=== PATIENT | male | born 1955 | race Caucasian/White ===

== ENCOUNTER → 2016-09-09 | Outpatient (CLI) | payer OTHER ==
[2016-07-25 10:45] VITALS: BP 158/100
[~2016-09-09] MED LIST: AMIO200T PO; AMIO200T2 PO; APIX5TAB PO; ASPI325T11 PO; FURO20TA3 PO; FURO40TA4 PO; HYDR-2666 PO; HYDR25TA9 PO; LISI-338 PO; MAGN400T22 PO; METO25TA4 PO; METO50TA2 PO; OXYC1TAB7 PO; POTA20TA4 PO; soma PO
--- NOTE | 2016-09-09 14:29 | EKG ---
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
[2016-09-09 14:36] LABS: BASO % 0 % (0-3); EOS % 1 % (0-3); HEMATOCRIT 41.7 % (39.0-53.0); HEMOGLOBIN 13.8 g/dL (13.0-17.5); LYMPH # 2.6 x10^3/uL (1.0-4.8); LYMPH % 30 % (24-48); MEAN CORPUSCULAR HEMOGLOBIN 30 pg (25-35); MEAN CORPUSCULAR HGB CONC 33 g/dL (31-37); MEAN CORPUSCULAR VOLUME 91 fL (79-100); MONO % 6 % (0-9); NEUT % 62 % (31-73); PLATELET COUNT 291 x10^3/uL (140-400); RED BLOOD COUNT 4.57 x10^6/uL (4.30-5.70); RED CELL DISTRIBUTION WIDTH 13.6 % (11.5-14.5); WHITE BLOOD COUNT 8.6 x10^3/uL (4.0-11.0)
[2016-09-09 14:56] LABS: ALBUMIN 3.6 g/dL (3.4-5.0); ALBUMIN/GLOBULIN RATIO 0.7 (1.0-1.7); CALCIUM 9.4 mg/dL (8.5-10.1); CREATININE 1.6 mg/dL (0.7-1.3); GFR 44.5; INR 1.1 (0.8-1.1); POTASSIUM 3.7 mmol/L (3.5-5.1); PROTHROMBIN TIME PATIENT 13.2 SEC (11.7-14.0); TOTAL BILIRUBIN 0.4 mg/dL (0.2-1.0); TOTAL PROTEIN 8.8 g/dL (6.4-8.2)
== END | disposition home or self-care (01) ==
LOC: SURGPAT 14:00
PROVIDERS: ATTEND Thoracic Surgery (Cardiothoracic Vascular Surgery)
DX: Z01.818 Encounter for other preprocedural examination (principal)
CPT/HCPCS: 36415; 80053; 85027; 85610; 85730; 87641; 93005

== ENCOUNTER 2016-09-10 05:37 | Inpatient (IN) | payer OTHER ==
[2016-09-10] VITALS (11 sets, daily range): BP systolic 87–158; BP diastolic 55–90
[~2016-09-10] VITALS: Ht 177.8 cm; Wt 130.4 kg
[~2016-09-10 05:37] MED LIST changes: -AMIO200T2 PO; -ASPI325T11 PO; -FURO20TA3 PO; -FURO40TA4 PO; -HYDR-2666 PO; -MAGN400T22 PO; -OXYC1TAB7 PO; -POTA20TA4 PO
[2016-09-10] MEDS ORDERED: CEFAZOLIN SODIUM 1 GM in IV NORMAL SALINE 500ML BAG 500 ML IRR ONE (06:00)
[2016-09-10] MEDS ORDERED: POTASSIUM CHLORIDE 15 MEQ, SODIUM BICARBONATE VIAL 12.5 MEQ in IV ELECTROLYTE-S (PH 7.4... IRR ONE (06:00)
[2016-09-10] MEDS ORDERED: POTASSIUM CHLORIDE 70 MEQ, SODIUM BICARBONATE VIAL 12.5 MEQ, LIDOCAINE 2% 24 ML in IV E... IRR ONE (06:00)
[2016-09-10] MEDS ORDERED: CEFAZOLIN PREMIX 2 GM/50 ML BAG. IV ONE (06:30)
[2016-09-10] MEDS ORDERED: LIDOCAINE 2% 100 MG/5 ML DISP.SYRIN. ONE ×2 (06:31→15:18)
[2016-09-10] MEDS ORDERED: CEFAZOLIN 2GM PREMIX 50 ML IV ONE (06:31)
[2016-09-10] MEDS ORDERED: AMINOCAPROIC ACID 5,000 MG/20 ML VIAL IV ONE ×2 (06:31→15:18)
[2016-09-10] MEDS ORDERED: ROCURONIUM 100 MG/10 ML VIAL. ONE ×2 (06:31→09:09)
[2016-09-10] MEDS ORDERED: ETOMIDATE 20 MG/10 ML VIAL. IV ONE (06:31)
[2016-09-10] MEDS ORDERED: PHENYLEPHRINE 10 MG/ML VIAL. ONE (06:31)
[2016-09-10] MEDS ORDERED: HEPARIN for IV BOLUS 10,000 UNIT/10 ML VIAL. ONE ×4 (06:31→15:18)
[2016-09-10] MEDS ORDERED: MIDAZOLAM HCL/PF 5 MG/5 ML VIAL ONE (06:54)
[2016-09-10] MEDS ORDERED: SUFentanil 250 MCG/5 ML AMPUL. ONE (06:54)
[2016-09-10] MEDS ORDERED: EPINEPHRINE 1 MG/10 ML DISP.SYRIN. ONE (06:57)
[2016-09-10] MEDS ORDERED: NITROGLYCERIN PREMIX 0 ML IV ONE (06:57)
[2016-09-10] MEDS ORDERED: HYDROMORPHONE 2 MG/ML VIAL. IV PRN (07:00)
[2016-09-10] MEDS ORDERED: IV RINGERS,LACTATED 1000ML 1,000 ML IV SCH (07:00)
[2016-09-10] MEDS ORDERED: LIDOCAINE 1% 1 ML SYRINGE. ID PRN (07:00)
[2016-09-10] MEDS ORDERED: MORPHINE SULFATE 2 MG/ML DISP.SYRIN. IV PRN (07:00)
[2016-09-10] MEDS ORDERED: EPHEDRINE PF IN SALINE 50 MG/5 ML DISP.SYRIN. IV ONE (07:00)
[2016-09-10] MEDS ORDERED: ONDANSETRON PF 4 MG/2 ML VIAL. IV PRN (07:00)
[2016-09-10] MEDS ORDERED: PROCHLORPERAZINE 10 MG/2 ML VIAL. IV PRN (07:00)
[2016-09-10] MEDS ORDERED: CEFAZOLIN 2GM PREMIX 50 ML IV PRN (07:00)
[2016-09-10] MEDS ORDERED: FENTANYL PF 100 MCG/2 ML VIAL. IV PRN ×2 (07:00)
[2016-09-10] MEDS ORDERED: THROMBIN 20,000 UNIT SPRAY.SYRN KIT TP ONE (07:09)
[2016-09-10] MEDS ORDERED: SURGICEL NU-KNIT 3X4. ONE (07:09)
[2016-09-10] MEDS ORDERED: GELATIN SPONGE SIZE 100. ONE (07:09)
[2016-09-10] MEDS ORDERED: SURGICEL HEMOSTAT 4X8 EACH. ONE (07:09)
[2016-09-10] MEDS ORDERED: VANCOMYCIN 10GM VIAL for OR. CEMENT ONE (07:30)
--- NOTE | 2016-09-10 07:59 | PDOC1 ---
History and Physical Date of Admission Date of Admission DATE: 09/10/16 TIME: 07:44 Identification/Chief Complaint Chief Complaint Ascending aortic aneurysm Source Source: Chart review, Patient History of Present Illness History of Present Illness Patient is a 60 year old male, who presented in February 2016 with new Afib with RVR. His was successfully DCCV to SR, but and ECHO demonstrated an ascending aortic aneurysm 5.[address] angio confirmed an ascending aortic aneurysm 5,3-5,4 cm. The aortic root and the proximal arch are not involved. His LHC showed normal coronaries. His LV function is normal. The aortic valve is tricuspid with normal structure, with trace AI. There is no family history of an acute aortic event. He is here today for and elective ascending aortic aneurysm repair. Past Medical History Cardiovascular: AFIB, HTN Pulmonary: No pertinent hx GI: No pertinent hx Heme/Onc: Cancer (renal cell ca s/p nephrectomy) Hepatobiliary: Other (pancreatic nodules-workup complete) Psych: No pertinent hx Musculoskeletal: No pain Rheumatologic: No pertinent hx Infectious disease: No pertinent hx ENT: No pertinent hx Renal/: Chronic renal failure Endocrine: No pertinent hx Dermatology: No pertinent hx Past Surgical History Past Surgical History: Cholecystectomy, Hernia Repair, Other (right nephrectomy ) Family History Family History: Coronary Artery Disease Social History Smoke: Quit (10 years ago) ALCOHOL: none Drugs: None Current Medications Current Medications Current Medications Potassium Chloride 70 meq/ Sodium Bicarbonate 12.5 meq/Lidocaine HCl 24 ml/ Parenteral Electrolytes 571.5 ml @ 571.5 mls/ hr 1X PERIOP ONCE IRR ; Start at 06:00; Stop 09/10/16 at 06:59; Status DC Potassium Chloride 15 meq/ Sodium Bicarbonate 12.5 meq/Parenteral Electrolytes 520 ml @ 520 mls/hr 1X PERIOP ONCE IRR ; Start 09/10/16 at 06:00; Stop at 06:59; Status DC Cefazolin Sodium/ Sodium Chloride (Ancef/Iv Sodium Chloride 0.9% 500ml Bag) 500 ml @ 500 mls/hr 1X PERIOP ONCE IRR ; Start 09/10/16 at 06:00; Stop 09/10/16 at 06:59; Status DC Ondansetron HCl (Zofran) 4 mg PRN Q6HRS PRN IV Nausea; Start 09/10/16 at 07:00 ; Stop 3/1/17 at 06:59 Fentanyl Citrate (Fentanyl 2ml Vial) 25 mcg PRN Q5MIN PRN IV MILD PAIN; Start 09/10/16 at 07:00; Stop 09/11/16 at 06:59 Fentanyl Citrate (Fentanyl 2ml Vial) 50 mcg PRN Q5MIN PRN IV MODERATE PAIN; Start 09/10/16 at 07:00; Stop 09/11/16 at 06:59 Morphine Sulfate 1 mg 1 mg PRN Q10MIN PRN IV SEVERE PAIN; Start 09/10/16 at 07: 00; Stop 09/11/16 at 06:59 Lactated Ringer's (Iv Lactated Ringers) 1,000 ml @ 30 mls/hr Q24H IV ; Start at 07:00; Stop 09/10/16 at 18:59 Lidocaine HCl 2 ml 1X PRN PRN ID IV START; Start 09/10/16 at 07:00; Stop at 06:59 Hydromorphone HCl (Dilaudid) 0.5 mg PRN Q10MIN PRN IV SEVERE PAIN, Second choice; Start 09/10/16 at 07:00; Stop 09/11/16 at 06:59 Prochlorperazine Edisylate (Compazine) 5 mg PACU PRN PRN IV NAUSEA; Start 09/10 at 07:00; Stop 09/11/16 at 06:59 Etomidate (Amidate) 20 mg STK-MED ONCE IV ; Start 09/10/16 at 06:31; Stop at 06:32; Status DC Heparin Sodium (Porcine) 10,000 unit STK-MED ONCE .ROUTE ; Start 09/10/16 at 06: 31; Stop 09/10/16 at 06:32; Status DC Phenylephrine HCl (Iraj-Synephrine Inj) 10 mg STK-MED ONCE .ROUTE ; Start at 06:31; Stop 09/10/16 at 06:32; Status DC Lidocaine HCl 100 mg STK-MED ONCE .ROUTE ; Start 09/10/16 at 06:31; Stop at 06:32; Status DC Aminocaproic Acid (Amicar) 5,000 mg STK-MED ONCE IV ; Start 09/10/16 at 06:31; Stop 09/10/16 at 06:32; Status DC Rocuronium [place] 100 mg 100 mg STK-MED ONCE .ROUTE ; Start 09/10/16 at 06:31; Stop 09/10/16 at 06:32; Status DC Cefazolin Sodium/ Dextrose 50 ml @ As Directed STK-MED ONCE IV ; Start 09/10/16 at 06:31; Stop 09/10/16 at 06:32; Status DC Cefazolin Sodium/ Dextrose (Ancef 2gm Premix) 50 ml @ 100 mls/hr 1X PREOP PRN IV PER PROTOCOL; Start 09/10/16 at 07:00; Stop 09/10/16 at 12:00 Sufentanil Citrate (Sufenta) 250 mcg STK-MED ONCE .ROUTE ; Start 09/10/16 at 06: 54; Stop 09/10/16 at 06:55; Status DC Midazolam HCl 5 mg 5 mg STK-MED ONCE .ROUTE ; Start 09/10/16 at 06:54; Stop at 06:55; Status DC Nitroglycerin/ Dextrose (Nitroglycerin Drip) 250 ml @ As Directed STK-MED ONCE IV ; Start 09/10/16 at 06:57; Stop 09/10/16 at 06:58; Status DC Epinephrine HCl 1 mg STK-MED ONCE .ROUTE ; Start 09/10/16 at 06:57; Stop at 06:58; Status DC Ephedrine Sulfate 50 mg STK-MED ONCE IV ; Start 09/10/16 at 07:00; Stop at 07:01; Status DC Cellulose 1 each STK-MED ONCE .ROUTE ; Start 09/10/16 at 07:09; Stop 09/10/16 at 07:10; Status DC Cellulose 1 each STK-MED ONCE .ROUTE ; Start 09/10/16 at 07:09; Stop 09/10/16 at 07:10; Status DC Gelatin (Gelfoam Size 100) 1 each STK-MED ONCE .ROUTE ; Start 09/10/16 at 07:09 ; Stop 09/10/16 at 07:10; Status DC Thrombin 20,000 unit STK-MED ONCE TP ; Start 09/10/16 at 07:09; Stop 09/10/16 at 07:10; Status DC Vancomycin HCl (Vanco) 10 gm 1X ONCE CEMENT ; Start 09/10/16 at 07:30; Stop at 07:31; Status DC Active Scripts Active Reported [soma] 50 Mg PO HS Lisinopril 5 Mg Tablet 1 Tab PO HS Metoprolol Tartrate 50 Mg Tablet 1 Tab PO BID Cordarone (Amiodarone Hcl) 200 Mg Tablet 200 Mg PO BID Hydrochlorothiazide Tablet (Hydrochlorothiazide) 25 Mg Tablet 1 Tab PO DAILY Allergies Allergies: Coded Allergies: No Known Drug Allergies (Unverified , 09/09/16) ROS General: No: Appetite, Chills, Fatigue, Malaise, Night Sweats PSYCHOLOGICAL ROS: No: Anxiety, Behavioral Disorder, Concentration difficultie , Decreased libido, Depression, Disorientation, Hallucinations, Hostility, Irritablity, Memory difficulties, Mood Swings, Obsessive thoughts, Physical abuse, Sexual abuse, Sleep disturbances, Suicidal ideation Eyes: No Blurry vision, No Decreased vision, No Double vision, No Dry eyes, No Excessive tearing, No Eye Pain, No Itchy Eyes, No Loss of vision, No Photophobia , No Scotomata, No Uses contacts, No Uses glasses HEENT: No: Epistaxis, Heacaches, Hearing change, Nasal congestion, Nasal discharge, Oral lesions, Sinus pain, Sneezing, Snoring, Sore Throat, Tinnitus, Vertigo, Visual Changes, Vocal changes ALLERGY AND IMMUNOLOGY: No: Hives, Insect Bite Sensitivity, Itchy/Watery Eyes, Nasal Congestion, Post Nasal Drip, Seasonal Allergies Hematological and Lymphatic: No: Bleeding Problems, Blood Clots, Blood Transfusions, Brusing, Night Sweats, Pallor, Swollen Lymph Nodes ENDOCRINE: No: Breast Changes, Galactorrhea, Hair Pattern Changes, Hot Flashes , Malaise/lethargy, Mood Swings, Palpitations, Polydipsia/polyuria, Skin Changes , Temperature Intolerance, Unexpected Weight Changes Respiratory: No: Cough, Hemoptysis, Orthopnea, Pleuritic Pain, SOB with excertion, Shortness of breath, Sputum Changes, Stridor, Tachypnea, Wheezing Cardiovascular: No Chest Pain, No Edema, No Lt Headedness, No Orthopnea, No Palpitations, No Paroxysmal Noc. Dyspnea Gastrointestinal: No Abdominal Pain, No Constipation, No Diarrhea, No Hematochezia, No Melena, No Nausea, No Vomiting Genitourinary: YES , No Discharge, No Dysuria, No Flank Pain, No Frequency, No Hematuria, No Incontinence, No Pain, No Retention, No Urgency Musculoskeletal: No Gait Disturbance, No Joint Pain, No Joint Stiffness, No Joint Swelling, No Muscle Pain, No Muscular Weakness, No Pain In:, No Swelling In: Neurological: Yes Other, No Behavorial Changes, No Bowel/Bladder ControlChng, No Confusion, No Dizziness, No Gait Disturbance, No Headaches, No Impaired Coord/balance, No Memory Loss, No Numbness/Tingling, No Seizures, No Speech Problems, No Tremors, No Visual Changes, No Weakness Skin: No Acne, No Dry Skin, No Eczema, No Hair Changes, No Lumps, No Mole Changes, No Mottling, No Nail Changes, No Pruritus, No Rash, No Skin Lesion Changes Physical Exam General: Alert, Oriented X3, No acute distress HEENT: Atraumatic, PERRLA Lungs: Clear to auscultation, Normal air movement Heart: S1S2, RRR, no thrills, no murmurs Abdomen: Normal bowel sounds, Soft, No tenderness, No hepatosplenomegaly Rectal Exam: not examined, deferred Extremities: No edema Skin: No significant lesion Neuro: Normal gait, Normal speech, Strength at 5/5 X4 ext, Normal tone, Sensation intact Vitals Vitals Vital Signs Date Time Temp Pulse Resp B/P Pulse Ox O2 Delivery O2 Flow Rate FiO2 09/10/16 06:07 98.0 59 18 131/88 97 Room Air 98.0 134/89 Labs Labs Laboratory Tests Test 09/10/16 06:20 Glucose (Fingerstick) 82mg/dL (70-99) Laboratory Tests Test 09/10/16 06:20 Glucose (Fingerstick) 82mg/dL (70-99) VTE Prophylaxis Ordered VTE Prophylaxis Devices: Yes VTE Pharmacological Prophylaxi: Contraindicated Assessment/Plan Assessment/Plan 60 year old male with an ascending aortic aneurysm measuring 5.3-5.4cm. The root and proximal arch are sparred. The aortic valve is tricuspid with normal structure, with trace AI. There is no family history of an acute aortic event. The coronaries are normal on C. The LVEF is also normal. Patient has a history of nephrectomy for renal cell Ca and chronic renal insufficiency with a baseline creatinine of 1,6. The aortic root and proximal arch are about 4cm in max diameter. A root ot hemiarch replacement are not indicated at this stage. An ascending aortic aneurysm repair is indicated. The risks, benefits and limitations were explained. I quoted a mortality risk of 2-5%, acute renal failure 20-30%, dialysis 1-2%, ventilator dependent renal failure 1-2%, stroke 5 %, hemorrhage 5-10%, infection 1-2%. He accepts these risks and agrees to proceed. Plan for ascending aortic aneurysm repair. FRANKY AMEZCUA MD Sep 10, 2016 07:59
[2016-09-10] MEDS ORDERED: PAPAVERINE 60 MG/2 ML VIAL FOR OR ONLY. ONE (09:43)
[2016-09-10] MEDS ORDERED: 0.9 % SODIUM CHLORIDE 50 ML VIAL. IJ ONE (09:43)
[2016-09-10] MEDS ORDERED: MIDAZOLAM HCL 2 MG/2 ML VIAL. ONE ×2 (11:50→12:16)
[2016-09-10] MEDS ORDERED: PROTAMINE 250 MG/25 ML VIAL IV ONE ×2 (14:57)
[2016-09-10] MEDS ORDERED: COAGULATION FACTOR VIIA,RECOMB 1 MG VIAL. IV ONE (15:00)
[2016-09-10 15:18] LABS: HEMATOCRIT 27.1 % (39.0-53.0); HEMOGLOBIN 9.4 g/dL (13.0-17.5); WHITE BLOOD COUNT 11.8 x10^3/uL (4.0-11.0)
[2016-09-10] MEDS ORDERED: ALBUMIN HUMAN 25% 100 ML IV ONE (15:18)
[2016-09-10] MEDS ORDERED: MAGNESIUM SULFATE 5 GM/10 ML VIAL. ONE (15:18)
[2016-09-10] MEDS ORDERED: HEPARIN 30,000 UNIT/30 ML VIAL. ONE (15:18)
[2016-09-10] MEDS ORDERED: SODIUM BICARB ADULT 8.4% 50 MEQ/50 ML DISP.SYRIN. ONE (15:18)
[2016-09-10] MEDS ORDERED: CALCIUM CHLORIDE 1,000 MG/10 ML DISP.SYRIN IV ONE (15:18)
[2016-09-10] MEDS ORDERED: MANNITOL 25% 12.5 G/50 ML VIAL FOR OR. ONE (15:18)
[2016-09-10] MEDS ORDERED: MAGNESIUM SULFATE 1GM 100 ML IV PRN (15:30)
[2016-09-10] MEDS ORDERED: EPINEPHRINE VIAL 4 MG in IV NORMAL SALINE 250ML 250 ML IV PRN (15:30)
[2016-09-10] MEDS ORDERED: DEXTROSE 50% 25 GM / 50ML DISP.SYRIN. IV PRN (15:30)
[2016-09-10] MEDS ORDERED: DOPAMINE 400MG/250ML PREMIX 250 ML IV PRN (15:30)
[2016-09-10] MEDS ORDERED: PHENYLEPHRINE INJ 20 MG in IV NORMAL SALINE 250ML 250 ML IV PRN (15:30)
[2016-09-10] MEDS ORDERED: ACETAMINOPHEN 325 MG TABLET. PO PRN (15:30)
[2016-09-10] MEDS ORDERED: PROPOFOL 100 ML IV PRN (15:30)
[2016-09-10] MEDS ORDERED: ASPIRIN 300 MG SUPP.RECT PR PRN (15:30)
[2016-09-10] MEDS ORDERED: MEPERIDINE PF 25 MG/ML VIAL. IV PRN (15:30)
[2016-09-10] MEDS ORDERED: INSULIN REGULAR VIAL 150 UNIT in 0.9 % SODIUM CHLORIDE 150ML 150 ML IV PRN (15:30)
[2016-09-10] MEDS ORDERED: METOCLOPRAMIDE HCL 10 MG/2 ML VIAL. IV PRN (15:30)
[2016-09-10] MEDS ORDERED: KCL PER PROTOCOL MC PRN (15:30)
[2016-09-10] MEDS ORDERED: HYDROCODONE/APAP 5/325MG TABLET. PO PRN (15:30)
[2016-09-10] MEDS ORDERED: ELECTROLYTE (ICU) PROTOCOL. MC PRN (15:30)
[2016-09-10] MEDS ORDERED: 0.9 % SODIUM CHLORIDE 10 ML DISP.SYRIN. IV PRN (15:30)
[2016-09-10 15:31] LABS: PROTHROMBIN TIME PATIENT 12.4 SEC (11.7-14.0)
[2016-09-10] MEDS ORDERED: NITROGLYCERIN PREMIX 250 ML IV ONE (16:00)
[2016-09-10] MEDS ORDERED: AMIODARONE 900 MG in IV DEXTROSE 5% 500 ML IV PRN (16:30)
[2016-09-10] MEDS ORDERED: AMIODARONE 150 MG in IV DEXTROSE 5% 100 ML IV ONE (16:30)
[2016-09-10 16:34] LABS: ART BE ISTAT 1 mmol/L (0-3); ART GLUC ISTAT 97 mg/dL (70-99); ART HCO3 ISTAT 27 mmol/L (21-28); ART HCT ISTAT 36 % (37-52); ART HGB ISTAT 12.2 g/dL (14-18); ART ION CA ISTAT 1.17 mmol/L (1.13-1.32); ART K ISTAT 3.3 mmol/L (3.5-5.0); ART NA ISTAT 139 mmol/L (135-145); ART PCO2 ISTAT 49 mmHg (35-45); ART PH ISTAT 7.35 (7.35-7.45); ART PO2 ISTAT 95 mmHg (75-100); ART SAT O2 SAT 97 % (95-99); ART TCO2 ISTAT 28 mmol/L (21-32); TOSPEC ART
[2016-09-10 16:34] LABS: ART BE ISTAT 2 mmol/L (0-3); ART GLUC ISTAT 96 mg/dL (70-99); ART HCO3 ISTAT 26 mmol/L (21-28); ART HCT ISTAT 37 % (37-52); ART HGB ISTAT 12.6 g/dL (14-18); ART ION CA ISTAT 1.16 mmol/L (1.13-1.32); ART K ISTAT 3.5 mmol/L (3.5-5.0); ART NA ISTAT 140 mmol/L (135-145); ART PCO2 ISTAT 43 mmHg (35-45); ART PO2 ISTAT 162 mmHg (75-100); ART SAT O2 SAT 99 % (95-99); ART TCO2 ISTAT 28 mmol/L (21-32); TOSPEC ART
[2016-09-10 16:35] LABS: FIO2 ISTAT 100; TOSPEC VEN; VEN BASE EXCESS ISTAT 1 mmol/L (0-3); VEN GLUC ISTAT 94 mg/dL (70-99); VEN HCO3 ISTAT 26 mmol/L (24-28); VEN HCT ISTAT 37 % (37-52); VEN HGB ISTAT 12.6 g/dL (14-18); VEN ION CA ISTAT 1.18 mmol/L (1.13-1.32); VEN K ISTAT 3.4 mmol/L (3.5-5.0); VEN NA ISTAT 142 mmol/L (135-145); VEN O2 ISTAT 38 mmHg (20-40); VEN PCO2 ISTAT 44 mmHg (41-51); VEN PH ISTAT 7.38 (7.32-7.42); VEN SO2 ISTAT 70 %; VEN TCO2 ISTAT 27 mmol/L (21-32)
[2016-09-10 16:35] LABS: ART BE ISTAT 3 mmol/L (0-3); ART GLUC ISTAT 113 mg/dL (70-99); ART HCO3 ISTAT 27 mmol/L (21-28); ART HCT ISTAT 32 % (37-52); ART HGB ISTAT 10.9 g/dL (14-18); ART ION CA ISTAT 1.09 mmol/L (1.13-1.32); ART K ISTAT 3.6 mmol/L (3.5-5.0); ART NA ISTAT 141 mmol/L (135-145); ART PCO2 ISTAT 42 mmHg (35-45); ART PH ISTAT 7.43 (7.35-7.45); ART PO2 ISTAT 251 mmHg (75-100); ART SAT O2 SAT 100 % (95-99); ART TCO2 ISTAT 29 mmol/L (21-32); TOSPEC ART
[2016-09-10 16:35] LABS: ART BE ISTAT 2 mmol/L (0-3); ART GLUC ISTAT 129 mg/dL (70-99); ART HCO3 ISTAT 27 mmol/L (21-28); ART HCT ISTAT 32 % (37-52); ART HGB ISTAT 10.9 g/dL (14-18); ART K ISTAT 3.8 mmol/L (3.5-5.0); ART NA ISTAT 141 mmol/L (135-145); ART PCO2 ISTAT 41 mmHg (35-45); ART PH ISTAT 7.42 (7.35-7.45); ART PO2 ISTAT 192 mmHg (75-100); ART SAT O2 SAT 100 % (95-99); ART TCO2 ISTAT 28 mmol/L (21-32); TOSPEC ART
--- NOTE | 2016-09-10 16:35 | PDOC ---
BRIEF OPERATIVE NOTE Date: Sep 10, 2016 Pre-Op Diagnosis Ascending aortic aneurysm Chronic renal insufficiency Morbid obesity Hypertension Post-Op Diagnosis Ascending aortic aneurysm Chronic renal insufficiency Morbid obesity Hypertension Procedure Performed 1) Repair of ascending aortic aneurysm using a 28 mm Hemashield graft 2) Aortic wrap on distal anastomosis using a 8 mm Hemashield graft Surgeon Franky Amezcua MD Dry Cleaning Counter Clerk Aggie Motley STAFF MIDWIFE Olive Grewal STAFF MIDWIFE Anesthesia Type: General Blood Loss Cell saver IV Fluid 2000 mls crsystalloid 780 mls cellsaver 4 units FFP 1 unit Platelets 2mg Factor 7 Urine Output 700 mls Specimens Obtained None Findings 5,5 cm ascending aortic aneurysm, thinned aorta with poor quality tissues Normal aortic root at the sinotubular junction less than 4 cm Approximately 4 cm proximal aortic arch Diffuse coagulopathic bleeding from both anastomosis overall owing to poor the quality of aortic tissue Complications None Additional Remarks Cardiopulmonary bypass time 233 minutes Cross-clamp time: 90 minutes FRANKY AMEZCUA MD Sep 10, 2016 16:35
[2016-09-10 16:36] LABS: ART BE ISTAT 3 mmol/L (0-3); ART GLUC ISTAT 96 mg/dL (70-99); ART HCO3 ISTAT 26 mmol/L (21-28); ART HCT ISTAT 33 % (37-52); ART HGB ISTAT 11.2 g/dL (14-18); ART ION CA ISTAT 1.04 mmol/L (1.13-1.32); ART K ISTAT 3.4 mmol/L (3.5-5.0); ART NA ISTAT 140 mmol/L (135-145); ART PCO2 ISTAT 37 mmHg (35-45); ART PH ISTAT 7.46 (7.35-7.45); ART PO2 ISTAT 331 mmHg (75-100); ART SAT O2 SAT 100 % (95-99); ART TCO2 ISTAT 28 mmol/L (21-32); TOSPEC ART
[2016-09-10 16:36] LABS: ART BE ISTAT 2 mmol/L (0-3); ART GLUC ISTAT 138 mg/dL (70-99); ART HCO3 ISTAT 27 mmol/L (21-28); ART HCT ISTAT 30 % (37-52); ART HGB ISTAT 10.2 g/dL (14-18); ART ION CA ISTAT 1.59 mmol/L (1.13-1.32); ART K ISTAT 3.9 mmol/L (3.5-5.0); ART NA ISTAT 140 mmol/L (135-145); ART PCO2 ISTAT 48 mmHg (35-45); ART PH ISTAT 7.36 (7.35-7.45); ART PO2 ISTAT 206 mmHg (75-100); ART SAT O2 SAT 100 % (95-99); ART TCO2 ISTAT 29 mmol/L (21-32); TOSPEC ART
[2016-09-10 16:36] LABS: ART BE ISTAT 2 mmol/L (0-3); ART GLUC ISTAT 135 mg/dL (70-99); ART HCO3 ISTAT 27 mmol/L (21-28); ART HCT ISTAT 32 % (37-52); ART HGB ISTAT 10.9 g/dL (14-18); ART K ISTAT 3.6 mmol/L (3.5-5.0); ART NA ISTAT 141 mmol/L (135-145); ART PCO2 ISTAT 43 mmHg (35-45); ART PO2 ISTAT 203 mmHg (75-100); ART SAT O2 SAT 100 % (95-99); ART TCO2 ISTAT 28 mmol/L (21-32); TOSPEC ART
[2016-09-10 16:36] LABS: ART BE ISTAT 2 mmol/L (0-3); ART GLUC ISTAT 129 mg/dL (70-99); ART HCO3 ISTAT 28 mmol/L (21-28); ART HCT ISTAT 31 % (37-52); ART HGB ISTAT 10.5 g/dL (14-18); ART ION CA ISTAT 1.31 mmol/L (1.13-1.32); ART K ISTAT 3.7 mmol/L (3.5-5.0); ART NA ISTAT 141 mmol/L (135-145); ART PCO2 ISTAT 51 mmHg (35-45); ART PH ISTAT 7.34 (7.35-7.45); ART PO2 ISTAT 212 mmHg (75-100); ART SAT O2 SAT 100 % (95-99); ART TCO2 ISTAT 29 mmol/L (21-32); TOSPEC ART
[2016-09-10] MEDS ORDERED: ISOFLURANE > 120 MINUTES. IH ONE (16:36)
[2016-09-10 16:37] LABS: ART BE ISTAT 6 mmol/L (0-3); ART GLUC ISTAT 124 mg/dL (70-99); ART HCO3 ISTAT 30 mmol/L (21-28); ART HCT ISTAT 30 % (37-52); ART HGB ISTAT 10.2 g/dL (14-18); ART ION CA ISTAT 1.41 mmol/L (1.13-1.32); ART K ISTAT 3.7 mmol/L (3.5-5.0); ART NA ISTAT 141 mmol/L (135-145); ART PCO2 ISTAT 40 mmHg (35-45); ART PH ISTAT 7.48 (7.35-7.45); ART PO2 ISTAT 256 mmHg (75-100); ART SAT O2 SAT 100 % (95-99); ART TCO2 ISTAT 31 mmol/L (21-32); TOSPEC ART
[2016-09-10 16:37] LABS: ART BE ISTAT 1 mmol/L (0-3); ART GLUC ISTAT 137 mg/dL (70-99); ART HCO3 ISTAT 25 mmol/L (21-28); ART HCT ISTAT 27 % (37-52); ART HGB ISTAT 9.2 g/dL (14-18); ART ION CA ISTAT 1.38 mmol/L (1.13-1.32); ART K ISTAT 3.7 mmol/L (3.5-5.0); ART NA ISTAT 142 mmol/L (135-145); ART PCO2 ISTAT 37 mmHg (35-45); ART PH ISTAT 7.44 (7.35-7.45); ART PO2 ISTAT 66 mmHg (75-100); ART SAT O2 SAT 94 % (95-99); ART TCO2 ISTAT 27 mmol/L (21-32); TOSPEC ART
[2016-09-10 16:37] LABS: FIO2 ISTAT 90; TOSPEC VEN; VEN BASE EXCESS ISTAT 4 mmol/L (0-3); VEN GLUC ISTAT 124 mg/dL (70-99); VEN HCO3 ISTAT 29 mmol/L (24-28); VEN HCT ISTAT 30 % (37-52); VEN HGB ISTAT 10.2 g/dL (14-18); VEN ION CA ISTAT 1.44 mmol/L (1.13-1.32); VEN K ISTAT 3.6 mmol/L (3.5-5.0); VEN NA ISTAT 142 mmol/L (135-145); VEN O2 ISTAT 35 mmHg (20-40); VEN PCO2 ISTAT 42 mmHg (41-51); VEN PH ISTAT 7.44 (7.32-7.42); VEN SO2 ISTAT 69 %; VEN TCO2 ISTAT 30 mmol/L (21-32)
[2016-09-10 16:37] LABS: ART BE ISTAT 3 mmol/L (0-3); ART GLUC ISTAT 108 mg/dL (70-99); ART HCO3 ISTAT 27 mmol/L (21-28); ART HCT ISTAT 28 % (37-52); ART HGB ISTAT 9.5 g/dL (14-18); ART ION CA ISTAT 1.25 mmol/L (1.13-1.32); ART K ISTAT 3.2 mmol/L (3.5-5.0); ART NA ISTAT 143 mmol/L (135-145); ART PCO2 ISTAT 38 mmHg (35-45); ART PH ISTAT 7.45 (7.35-7.45); ART PO2 ISTAT 95 mmHg (75-100); ART SAT O2 SAT 98 % (95-99); ART TCO2 ISTAT 28 mmol/L (21-32); TOSPEC ART
[2016-09-10 16:37] LABS: ART BE ISTAT 2 mmol/L (0-3); ART GLUC ISTAT 138 mg/dL (70-99); ART HCO3 ISTAT 27 mmol/L (21-28); ART HCT ISTAT 28 % (37-52); ART HGB ISTAT 9.5 g/dL (14-18); ART ION CA ISTAT 1.13 mmol/L (1.13-1.32); ART NA ISTAT 144 mmol/L (135-145); ART PCO2 ISTAT 43 mmHg (35-45); ART PO2 ISTAT 124 mmHg (75-100); ART SAT O2 SAT 99 % (95-99); ART TCO2 ISTAT 28 mmol/L (21-32); TOSPEC ART
--- NOTE | 2016-09-10 16:42 | PDOC4 ---
Operative Note Operative Note Date: Sep 10, 2016 Preoperative diagnosis Ascending aortic aneurysm Chronic renal insufficiency Morbid obesity Hypertension Postoperative diagnosis Ascending aortic aneurysm Chronic renal insufficiency Morbid obesity Hypertension Operation 1) Repair of ascending aortic aneurysm using a 28 mm Hemashield graft 2) Aortic wrap of the distal anastomosis using a 8 mm Hemashield graft Surgeon Stephanie Amezcua MD Eyeglass Assembler Aggie Motlye INSTALLATION SERVICE REPRESENTATIVE Olive Grewal INSTALLATION SERVICE REPRESENTATIVE Anesthesia General Blood loss Cell saver IV fluids 2000 mls crsystalloid 780 mls cellsaver 4 units FFP 1 unit Platelets 2mg Factor 7 Urine output 700 mls Specimens obtained None Findings 5,5 cm ascending aortic aneurysm, thinned aorta with poor quality tissues Normal aortic root at the sinotubular junction less than 4 cm Approximately 4 cm proximal aortic arch Diffuse coagulopathic bleeding from both anastomosis overall owing to poor the quality of aortic tissue Complications None Additional remarks Cardiopulmonary bypass time 233 minutes Cross-clamp time: 90 minutes Indications Patient is a 60 year old male, who presented in February 2016 with new Afib with RVR. His was successfully DCCV to SR, but an ECHO demonstrated an ascending aortic aneurysm 5.[address] angio confirmed the ascending aortic aneurysm at 5,3-5,4 cm. The aortic root and the proximal arch are not involved. His LHC showed normal coronaries. His LV function was normal. The aortic valve was tricuspid with normal structure, with trace AI. There is no family history of an acute aortic event. An ascending aortic aneurysm repair was indicated. The risks, benefits and limitations were explained. I quoted a mortality risk of 2-5%, acute renal failure 20-30%, dialysis 1-2%, ventilator dependent renal failure 1-2%, stroke 5%, hemorrhage 5-10%, infection 1-2%. He accepted these risks and agreed to proceed. Procedure The patient was seen in the preoperative area where his ID was confirmed using 2 unique identifies. He was then transferred to the operating room and placed in supine position. Anesthesia was induced by the anesthesiologist and the airway was secured with an ET tube. Antibiotic prophylaxis was given. Lines were placed. Anesthesia was not able to place a Cordis in the right IJ, which was most likely thrombosed from his previous central line placement when he had a right nephrectomy. They were able to get the cordis in the left internal jugular vein. A right arterial radial line was placed without difficulty. Moreau catheter was also inserted. The patient was prepped and draped in the usual sterile surgical fashion.A timeout was then performed. A preoperative transesophageal echo confirmed the ascending aortic aneurysm and a normal-appearing aortic root. It also demonstrated a normal trileaflet aortic valve. It did not show any mobile atheroma or calcifications in the descending thoracic aorta. My initial plan was to cannulate the left femoral artery. The left femoral artery was exposed through an oblique incision above the groin crease. The femoral artery was very small and very fragile. I could barely feel its pulse. I placed a pursestring using a 4-0 Prolene but as soon as this was cinched down , it impeded flow distally as there was no pulse, distal to the pursestring. This was obviously because of the very small size of the femoral artery. At that point, I decided to abandon the use of the femoral artery as I was sure that it would cause malperfusion phenomena predominant in the distal left limb. The pursestring was removed. The left femoral artery pulse was normal proximal and distal to where the pursestring was placed. A median sternotomy was then performed. The pericardium was opened and the pericardial cradle created. The ascending aorta was dramatic in its appearance. Ascending aorta was extremely dilated and thinned. The aorta below the sinotubular junction was completely normal in size. The proximal arch was slightly dilated but not more than 4 cm. I then decided to proceed with an ascending replacement without circulatory arrest. I cannulated the aortic arch, right atrium, coronary sinus and right superior pulmonary vein. The pulmonary vein was unusually located nearly completely posterior to the SVC and it was also very deep. The ascending aorta was also cannulated with the bifurcated aortic root and antegrade cardioplegia needle, for delivery of the induction dose of antegrade cardioplegia. The root vent needle was removed prior to resecting the ascending aorta. Bypass was initiated and the patient was cooled down to 32. Myocardial preservation was performed also with topical hypothermia with ice, and cold blood cardioplegia given initially antegrade and subsequently retrograde through the coronary sinus. Bypass was initiated, the aorta crossclamped and the first dose cardioplegia given. The aorta was opened. The aortic valve was trileaflet and normal in appearance. The left coronary ostium was in its normal anatomic position. The right coronary sinus was located more laterally, adjacent to the right and non-coronary sinus commissure. The annulus was of normal size. The diseased and dilated ascending aorta was resected. A 28 mm Hemashield graft was then brought into the field and beveled. I initially performed the distal anastomosis using a running 4-0 Prolene. The distal anastomosis was reinforced with a strip of Reilly felt circumferentially in addition to a second piece of felt on the back wall in the lumen. In a similar fashion, I then performed the proximal anastomosis, which was reinforced with a strip of Reilly felt circumferentially and a second piece for the back wall. Prior to completing the distal anastomosis, the heart was de- aired. The quality of the aorta overall was poor as it was very thinned and weakened. The aortic root vent needle was then placed again in the ascending aortic graft. The cross-clamp was then removed the patient was rewarmed and the heart was reperfused. As the heart started beating, several bleeding points in both the proximal and distal anastomoses were identified. Most of these were surgical rather than bleeding from suture needle holes. Several pledgeted 4-0 Prolenes were used to repair both anastomosis. There was still significant bleeding predominantly from the distal anastomosis so I then decided to perform an aortic wrap using a 8 mm Hemashield graft which was secured with a two 2-0 Ethibond sutures. There was still bleeding from the proximal anastomosis and at that point I decided to come off bypass, reverse the coagulopathy with protamine and by giving FFP, platelets and factor VII. Atrial and ventricular wires were placed. The patient was disconnected from cardiopulmonary bypass after having resumed normal sinus rhythm. No vasopressors were required. Blood products, including factor VII were given, as was the protamine. A second transesophageal echo demonstrated normal function of the aortic valve and no air within the left heart. The retrograde catheter was initially removed. The LV vent was then removed from the right superior pulmonary vein as was the aortic root vent. I then removed the right atrial venous cannula and the arterial cannula from the aortic arch. The pericardium was packed for 15 minutes. This achieved hemostasis in a very satisfactory manner. A angled 36 Angolan chest tube was placed in the posterior pericardium and a straight 36 Angolan tube in the anterior pericardium which were both secured with #1 silk sutures. The sternotomy was closed with seven #7 sternal wires. The left groin was closed in 3 layers. Monocryl was used for the epidermis followed by Dermabond and a sterile dressing. The sternotomy incision was closed initially with a 0 Vicryl, followed by 2-0 Vicryl and a 4-0 Monocryl for the epidermis. Sterile dressings was applied. At the end of procedure, the instrument, sponge and needle counts were all correct. The patient was then transferred to the ICU in overall stable condition. STEPHANIE AMEZCUA MD Sep 10, 2016 16:42
--- NOTE | 2016-09-10 16:59 | RAD ---
Exam performed: One view chest. Indication: POST OP OPEN HEART IN OR. Date of Service: 09/10/2016 2:00 AM Comparison: None available Single AP upright portable view chest findings: Cardiomediastinal silhouette is enlarged. Endotracheal tube, Acme-Bushra catheter and chest tubes remain in place. Lungs appear expanded. Curvilinear air density seen along the left heart margin possibly postoperative pneumopericardium. No acute infiltrates, effusion or pneumothorax is detected. The bony structures are normal. Impression: There is moderate cardiomegaly Postoperative changes with support lines and tubes.
[2016-09-10] MEDS ORDERED: CEFAZOLIN SODIUM 3 GM in IV NORMAL SALINE 100ML 100 ML IV SCH (17:00)
[2016-09-10] MEDS: IV RINGERS,LACTATED 1000ML 1,000 ML IV SCH (17:00)
--- NOTE | 2016-09-10 17:04 | EKG ---
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
[2016-09-10] MEDS: CLEVIDIPINE BUTYRATE 100 ML IV PRN ×2 (17:07→23:27)
[2016-09-10] MEDS ORDERED: ROCURONIUM 50 MG/5 ML VIAL. ONE (17:08)
[2016-09-10 17:21] LABS: BASE EXCESS COOX -2 mmol/L (-3-3); CARBON MONOXIDE 0.7 % (0.0-1.9); HCO3 COOX 23 mmol/L (21-28); METHEMOGLOBIN 0.1 % (0.0-1.9); PCO2 COOX 39 mmHg (35-46); PH COOX 7.38 (7.35-7.45); PO2 COOX 100 mmHg (65-108); SAT O2 COOX 97 % (92-99); TOTAL HEMOGLOBIN 12.8 g/dL
[2016-09-10 17:22] LABS: FIO2 COOX 100
[2016-09-10 17:24] LABS: HEMATOCRIT 30.6 % (39.0-53.0); HEMOGLOBIN 10.3 g/dL (13.0-17.5); RED BLOOD COUNT 3.36 x10^6/uL (4.30-5.70); RED CELL DISTRIBUTION WIDTH 13.6 % (11.5-14.5); WHITE BLOOD COUNT 11.3 x10^3/uL (4.0-11.0)
[2016-09-10 17:33] LABS: PROTHROMBIN TIME PATIENT 12.5 SEC (11.7-14.0)
[2016-09-10 18:06] LABS: CALCIUM 9.4 mg/dL (8.5-10.1); CREATININE 1.7 mg/dL (0.7-1.3); GFR 41.5; MAGNESIUM 1.9 mg/dL (1.8-2.4); POTASSIUM 3.4 mmol/L (3.5-5.1)
[2016-09-10] MEDS: POTASSIUM CHLORIDE 20MEQ 50 ML IV SCH ×2 (18:45→19:42)
[2016-09-10] MEDS ORDERED: MAGNESIUM SULFATE 1GM 100 ML IV ONE (19:00)
[2016-09-10] MEDS: ALBUTEROL SULFATE 2.5 MG/3 ML NEBU. NEB PRN (19:35)
[2016-09-10] MEDS: ALBUMIN HUMAN 5% 250 ML IV PRN (19:42)
[2016-09-10] MEDS: MORPHINE SULFATE 2 MG/ML DISP.SYRIN. IV PRN ×2 (20:24→21:54)
[2016-09-10] MEDS ORDERED: POTASSIUM CHLORIDE 20MEQ 50 ML IV ONE (20:30)
[2016-09-10] MEDS: FAMOTIDINE 20 MG/2 ML VIAL IVP SCH (20:44)
[2016-09-10 20:56] LABS: HEMATOCRIT 31.1 % (39.0-53.0); HEMOGLOBIN 10.5 g/dL (13.0-17.5)
[2016-09-10] MEDS: METOPROLOL TART IMMED RELEASE 25 MG TABLET PO SCH (21:00)
[2016-09-10] MEDS: SENNOSIDES/DOCUSATE 8.6/50MG TABLET. PO SCH (21:00)
[2016-09-10 21:08] LABS: HCO3 ABG 25 mmol/L (21-28); PCO2 ABG 37 mmHg (35-46); PO2 ABG 100 mmHg (65-108); SAT O2 ABG 97 % (92-99)
[2016-09-10] MEDS: HYDROCODONE/APAP 5/325MG TABLET. PO PRN (23:05)
[2016-09-10] MEDS: CEFAZOLIN SODIUM 3 GM in IV NORMAL SALINE 100ML 100 ML IV SCH (23:11)
[2016-09-11] VITALS (37 sets, daily range): BP systolic 91–146; BP diastolic 54–94
[2016-09-11] MEDS: ALBUTEROL SULFATE 2.5 MG/3 ML NEBU. NEB PRN (00:48)
[2016-09-11 00:58] LABS: FIO2 ABG 40
[2016-09-11 00:59] LABS: PH ABG 7.45 (7.35-7.45)
[2016-09-11] MEDS: MORPHINE SULFATE 2 MG/ML DISP.SYRIN. IV PRN ×5 (02:09→23:10)
[2016-09-11] MEDS: HYDROCODONE/APAP 5/325MG TABLET. PO PRN ×3 (04:00→20:14)
[2016-09-11 06:14] LABS: HEMATOCRIT 31.9 % (39.0-53.0); HEMOGLOBIN 10.7 g/dL (13.0-17.5); RED BLOOD COUNT 3.56 x10^6/uL (4.30-5.70); RED CELL DISTRIBUTION WIDTH 13.7 % (11.5-14.5); WHITE BLOOD COUNT 13.2 x10^3/uL (4.0-11.0)
[2016-09-11] MEDS: CEFAZOLIN SODIUM 3 GM in IV NORMAL SALINE 100ML 100 ML IV SCH ×3 (06:26→23:05)
[2016-09-11 06:37] LABS: CALCIUM 9.1 mg/dL (8.5-10.1); CREATININE 1.6 mg/dL (0.7-1.3); GFR 44.5; POTASSIUM 4.2 mmol/L (3.5-5.1)
[2016-09-11 06:53] LABS: INR 1.2 (0.8-1.1); PROTHROMBIN TIME PATIENT 14.3 SEC (11.7-14.0)
[2016-09-11] MEDS ORDERED: MAGNESIUM SULFATE 1GM 100 ML IV ONE (07:00)
[2016-09-11] MEDS ORDERED: POTASSIUM CHLORIDE 20MEQ 50 ML IV ONE (07:00)
[2016-09-11] MEDS ORDERED: ASPIRIN ENTERIC COATED 325 MG TABLET.DR. PO SCH (08:00)
[2016-09-11] MEDS: FAMOTIDINE 20 MG/2 ML VIAL IVP SCH ×2 (08:49→21:08)
[2016-09-11] MEDS: SENNOSIDES/DOCUSATE 8.6/50MG TABLET. PO SCH ×2 (08:50→21:08)
[2016-09-11] MEDS: METOPROLOL TART IMMED RELEASE 25 MG TABLET PO SCH ×2 (08:50→21:07)
--- NOTE | 2016-09-11 09:48 | RAD ---
Portable chest, 09/11/2016: History: Postop CABG Comparison is made to yesterday's study. The ET tube and Slemp-Bushra catheter have been removed. A left jugular vascular sheath remains in place. 2 mediastinal drains also remain in place. The heart is enlarged. There is a curvilinear lucency again noted along the left side of the heart most likely representing residual pneumopericardium outlined by epicardial fat. The pulmonary vascularity is normal. The left hemidiaphragm is now obscured suggesting left basilar atelectasis and/or pleural fluid. The right chest is clear. There is no evidence of pneumothorax. IMPRESSION: 1. Cardiomegaly with mild residual pneumopericardium. 2. Mild left basilar opacity suggesting atelectasis and/or pleural fluid.
--- NOTE | 2016-09-11 14:49 | PDOC ---
Progress Note Subjective Subjective Fast track extubation yesterday. Overall doing well today. Normotensive and in sinus rhythm. He is out of the bed to the chair and has ambulated around the unit once. On 5 L nasal cannula. Very good urine output and creatinine stable at baseline 1,6. Mediastinal drain output has slowed down. Only complaint is some numbness in his right forearm. ROS ROS No nausea No vomiting No pain No rash Vital Sign Vital Signs Vital Signs Date Time Temp Pulse Resp B/P Pulse Ox O2 Delivery O2 Flow Rate FiO2 09/11/16 12:48 11 95 Nasal Cannula 5.0 09/11/16 10:00 72 120/74 09/11/16 07:00 98.4 98.4 Physical Exam PHYSICAL EXAM GENERAL: NAD, Alert HEENT: PERRL, OC/OP NECK: Supple, no JVD, no LN LUNGS: Clear HEART: S1S2, no gallop, no murmur ABD: Soft, NT, no organomegaly, no rebound EXT: No edema, no cyanosis [employer]: Alert, oriented x 3, no focal neurologic deficit SKIN: No rash IV: ok Labs Lab Laboratory Tests Test 09/10/16 14:56 09/10/16 15:00 09/10/16 15:10 09/10/16 15:17 Bedside Hematocrit 30% (37-52) 30% (37-52) Bedside Venous pH 7.44 (7.32-7.42) Bedside Venous pCO2 42mmHg (41-51) Bedside Venous pO2 35mmHg (20-40) Bedside Venous HCO3 29mmol/L (24-28) Bedside Venous Blood Total CO2 30mmol/L (21-32) Bedside Venous Blood O2 Saturation 69% Bedside Venous Blood Base Excess 4mmol/L (0-3) POC Venous Hemoglobin (Calc) 10.2g/dL (14-18) Bedside FiO2 90 90.0 Bedside Sodium 142mmol/L (135-145) 141mmol/L (135-145) Bedside Potassium 3.6mmol/L (3.5-5.0) 3.7mmol/L (3.5-5.0) Glucose Level 124mg/dL (70-99) 124mg/dL (70-99) Bedside Ionized Calcium (Allie) 1.44mmol/L (1.13-1.32) 1.41mmol/L (1.13-1.32) Bedside Hemoglobin (Calculated) 10.2g/dL (14-18) Bedside Arterial pH 7.48 (7.35-7.45) Bedside Arterial pCO2 40mmHg (35-45) Bedside Arterial pO2 256mmHg (75-100) Bedside Arterial HCO3 30mmol/L (21-28) Bedside Arterial Total CO2 31mmol/L (21-32) Arterial Bld O2 Saturation (Measur) 100% (95-99) Bedside Arterial Blood Base Excess 6mmol/L (0-3) White Blood Count 11.8x10^3/uL (4.0-11.0) Hemoglobin 9.4g/dL (13.0-17.5) Hematocrit 27.1% (39.0-53.0) Platelet Count 149x10^3/uL (140-400) Prothrombin Time 12.4SEC (11.7-14.0) Prothromb Time International Ratio 1.0 (0.8-1.1) Activated Partial Thromboplast Time 34SEC (24-38) Fibrinogen 206mg/dL (200-440) O2 Saturation 97% (92-99) Arterial Blood pH 7.38 (7.35-7.45) Arterial Blood pCO2 at Patient Temp 39mmHg (35-46) Arterial Blood pO2 at Patient Temp 100mmHg (65-108) Arterial Blood HCO3 23mmol/L (21-28) Arterial Blood Base Excess -2mmol/L (-3-3) Oxyhemoglobin 96.0% Methemoglobin 0.1% (0.0-1.9) Carbon Monoxide, Quantitative 0.7% (0.0-1.9) FiO2 100 Test 09/10/16 15:35 09/10/16 16:08 09/10/16 17:00 09/10/16 17:07 Bedside Hemoglobin (Calculated) 9.2g/dL (14-18) 9.5g/dL (14-18) 9.5g/dL (14-18) Bedside Hematocrit 27% (37-52) 28% (37-52) 28% (37-52) Bedside Arterial pH 7.44 (7.35-7.45) 7.40 (7.35-7.45) 7.45 (7.35-7.45) Bedside Arterial pCO2 37mmHg (35-45) 43mmHg (35-45) 38mmHg (35-45) Bedside Arterial pO2 66mmHg (75-100) 124mmHg (75-100) 95mmHg (75-100) Bedside Arterial HCO3 25mmol/L (21-28) 27mmol/L (21-28) 27mmol/L (21-28) Bedside Arterial Total CO2 27mmol/L (21-32) 28mmol/L (21-32) 28mmol/L (21-32) Arterial Bld O2 Saturation (Measur) 94% (95-99) 99% (95-99) 98% (95-99) Bedside Arterial Blood Base Excess 1mmol/L (0-3) 2mmol/L (0-3) 3mmol/L (0-3) Bedside FiO2 90.0 100.0 100.0 Bedside Sodium 142mmol/L (135-145) 144mmol/L (135-145) 143mmol/L (135-145) Bedside Potassium 3.7mmol/L (3.5-5.0) 3.0mmol/L (3.5-5.0) 3.2mmol/L (3.5-5.0) Glucose Level 137mg/dL (70-99) 138mg/dL (70-99) 108mg/dL (70-99) Bedside Ionized Calcium (Allie) 1.38mmol/L (1.13-1.32) 1.13mmol/L (1.13-1.32) 1.25mmol/L (1.13-1.32) Activated Clotting Time 74SEC (90-125) Test 09/10/16 17:10 09/10/16 17:11 09/10/16 17:45 09/10/16 18:38 White Blood Count 11.3x10^3/uL (4.0-11.0) Red Blood Count 3.36x10^6/uL (4.30-5.70) Hemoglobin 10.3g/dL (13.0-17.5) Hematocrit 30.6% (39.0-53.0) Mean Corpuscular Volume 91fL (79-100) Mean Corpuscular Hemoglobin 31pg (25-35) Mean Corpuscular Hemoglobin Concent 34g/dL (31-37) Red Cell Distribution Width 13.6% (11.5-14.5) Platelet Count 142x10^3/uL (140-400) Prothrombin Time 12.5SEC (11.7-14.0) Prothromb Time International Ratio 1.0 (0.8-1.1) Activated Partial Thromboplast Time 42SEC (24-38) Glucose (Fingerstick) 160mg/dL (70-99) 130mg/dL (70-99) Sodium Level 146mmol/L (136-145) Potassium Level 3.4mmol/L (3.5-5.1) Chloride Level 107mmol/L (98-107) Carbon Dioxide Level 27mmol/L (21-32) Anion Gap 12 (6-14) Blood Urea Nitrogen 25mg/dL (8-26) Creatinine 1.7mg/dL (0.7-1.3) Estimated GFR (Cockcroft-Gault) 41.5 Glucose Level 142mg/dL (70-99) Calcium Level 9.4mg/dL (8.5-10.1) Magnesium Level 1.9mg/dL (1.8-2.4) Test 09/10/16 19:44 09/10/16 20:41 09/10/16 20:42 09/10/16 21:06 Glucose (Fingerstick) 143mg/dL (70-99) 148mg/dL (70-99) Hemoglobin 10.5g/dL (13.0-17.5) Hematocrit 31.1% (39.0-53.0) Mean Corpuscular Hemoglobin Concent 34g/dL (31-37) O2 Saturation 97% (92-99) Arterial Blood pH 7.45 (7.35-7.45) Arterial Blood pCO2 at Patient Temp 37mmHg (35-46) Arterial Blood pO2 at Patient Temp 100mmHg (65-108) Arterial Blood HCO3 25mmol/L (21-28) Arterial Blood Base Excess 1mmol/L (-3-3) FiO2 40 Test 09/10/16 21:39 09/10/16 22:42 09/10/16 22:55 09/10/16 23:44 Glucose (Fingerstick) 132mg/dL (70-99) 133mg/dL (70-99) 128mg/dL (70-99) Potassium Level 4.3mmol/L (3.5-5.1) Test 09/11/16 00:44 09/11/16 01:47 09/11/16 02:49 09/11/16 03:52 Glucose (Fingerstick) 140mg/dL (70-99) 131mg/dL (70-99) 131mg/dL (70-99) 121mg/dL (70-99) Test 09/11/16 04:51 09/11/16 05:50 09/11/16 05:54 09/11/16 07:08 Glucose (Fingerstick) 123mg/dL (70-99) 121mg/dL (70-99) 128mg/dL (70-99) White Blood Count 13.2x10^3/uL (4.0-11.0) Red Blood Count 3.56x10^6/uL (4.30-5.70) Hemoglobin 10.7g/dL (13.0-17.5) Hematocrit 31.9% (39.0-53.0) Mean Corpuscular Volume 90fL (79-100) Mean Corpuscular Hemoglobin 30pg (25-35) Mean Corpuscular Hemoglobin Concent 34g/dL (31-37) Red Cell Distribution Width 13.7% (11.5-14.5) Platelet Count 183x10^3/uL (140-400) Prothrombin Time 14.3SEC (11.7-14.0) Prothromb Time International Ratio 1.2 (0.8-1.1) Sodium Level 145mmol/L (136-145) Potassium Level 4.2mmol/L (3.5-5.1) Chloride Level 107mmol/L (98-107) Carbon Dioxide Level 29mmol/L (21-32) Anion Gap 9 (6-14) Blood Urea Nitrogen 24mg/dL (8-26) Creatinine 1.6mg/dL (0.7-1.3) Estimated GFR (Cockcroft-Gault) 44.5 Glucose Level 135mg/dL (70-99) Calcium Level 9.1mg/dL (8.5-10.1) Magnesium Level 2.0mg/dL (1.8-2.4) Test 09/11/16 08:12 Glucose (Fingerstick) 120mg/dL (70-99) Objective Assessment POD#1 s/p ascending aortic aneurysm repair. Fast track extubation yesterday. Doing well today. Normotensive and in sinus rhythm. Good urine output and creatinine stable at 1.6 which is his baseline. Mediastinal drain output has significant we slowed down. Only complaint is some mild numbness in his right forearm. Plan Plan of Care D/c swan D/c a-line Keep mediastinal tubes today. Will remove tomorrow morning. Will start diuresis today with 40 mg Lasix IV twice daily Switch amiodarone drip to po for A. fib prophylaxis Metoprolol 25 mg po twice daily PT to see him for his forearm numbness Ambulation and aggressive pulmonary toilet Wean O2 FRANKY AMEZCUA MD Sep 11, 2016 14:49
[2016-09-11] MEDS: FUROSEMIDE 40 MG/4 ML VIAL IVP SCH (14:54)
[2016-09-11] MEDS: AMIODARONE HCL 200 MG TABLET PO SCH ×2 (14:59→21:08)
[2016-09-11] MEDS: IV RINGERS,LACTATED 1000ML 1,000 ML IV SCH (15:17)
[2016-09-11] MEDS: ONDANSETRON PF 4 MG/2 ML VIAL. IV PRN ×2 (16:15→21:29)
[2016-09-11] MEDS ORDERED: METOCLOPRAMIDE HCL 10 MG/2 ML VIAL. IV PRN (16:15)
[2016-09-11] MEDS ORDERED: PROCHLORPERAZINE 10 MG/2 ML VIAL. IV PRN (16:15)
[2016-09-11] MEDS ORDERED: AMIODARONE 150 MG in IV DEXTROSE 5% 100 ML IV ONE (21:30)
[2016-09-11] MEDS ORDERED: AMIODARONE 900 MG in IV DEXTROSE 5% 500 ML IV PRN (22:00)
[2016-09-12] VITALS (42 sets, daily range): BP systolic 57–106; BP diastolic 45–81
[2016-09-12] MEDS: HYDROCODONE/APAP 5/325MG TABLET. PO PRN ×3 (02:25→21:29)
[2016-09-12] MEDS ORDERED: AMIODARONE 150 MG in IV DEXTROSE 5% 100 ML IV ONE (02:30)
[2016-09-12] MEDS: ONDANSETRON PF 4 MG/2 ML VIAL. IV PRN ×2 (04:20→21:23)
[2016-09-12] MEDS: MORPHINE SULFATE 2 MG/ML DISP.SYRIN. IV PRN ×3 (04:20→23:22)
[2016-09-12] MEDS: FUROSEMIDE 40 MG/4 ML VIAL IVP SCH ×2 (05:52→17:58)
[2016-09-12 05:57] LABS: BASO # 0.1 x10^3/uL (0.0-0.2); BASO % 0 % (0-3); EOS % 0 % (0-3); HEMATOCRIT 31.5 % (39.0-53.0); HEMOGLOBIN 10.4 g/dL (13.0-17.5); LYMPH # 1.5 x10^3/uL (1.0-4.8); LYMPH % 11 % (24-48); MEAN CORPUSCULAR HEMOGLOBIN 30 pg (25-35); MEAN CORPUSCULAR HGB CONC 33 g/dL (31-37); MEAN CORPUSCULAR VOLUME 91 fL (79-100); MONO % 6 % (0-9); NEUT % 82 % (31-73); PLATELET COUNT 169 x10^3/uL (140-400); RED BLOOD COUNT 3.47 x10^6/uL (4.30-5.70); RED CELL DISTRIBUTION WIDTH 13.6 % (11.5-14.5); WHITE BLOOD COUNT 14.2 x10^3/uL (4.0-11.0)
[2016-09-12 06:16] LABS: CALCIUM 8.5 mg/dL (8.5-10.1); CREATININE 1.3 mg/dL (0.7-1.3); GFR 56.5; POTASSIUM 3.9 mmol/L (3.5-5.1)
--- NOTE | 2016-09-12 08:07 | PDOC ---
Date and Time 09/11/16 Late entry- documented on anesthesia record yesterday. Post op check. Awake, extubated with VSS. C/O numb feeling R arm from mid upper arm to tip of all fingers. Circumferential. Above confirmed with exam. Physician Aide strength decreased right, biceps normal. 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 This should resolve quickly on its own but if it does not will ask neurology to see. Will also discuss with surgery re arm tucking. 07:20 today. Physician Aide is now normal and the numbness has nearly resolved. There is still decreased sensation in distal first three fingers and thumb, le side. The distribution is consistent with median nerve. This should continue to resolve without treatment. I instructed patient to contact us if there is any persistence. Current Medications Current Medications Potassium Chloride 70 meq/ Sodium Bicarbonate 12.5 meq/Lidocaine HCl 24 ml/ Parenteral Electrolytes 571.5 ml @ 571.5 mls/ hr 1X PERIOP ONCE IRR Last administered on 09/10/16 10:56; Start 09/10/16 at 06:00; Stop 09/10/16 at 06:59 ; Status DC Potassium Chloride 15 meq/ Sodium Bicarbonate 12.5 meq/Parenteral Electrolytes 520 ml @ 520 mls/hr 1X PERIOP ONCE IRR Last administered on 09/10/16 10:56; Start 09/10/16 at 06:00; Stop 09/10/16 at 06:59; Status DC Cefazolin Sodium/ Sodium Chloride (Ancef/Iv Sodium Chloride 0.9% 500ml Bag) 500 ml @ 500 mls/hr 1X PERIOP ONCE IRR Last administered on 09/10/16 09:06; Start 09/10/16 at 06:00; Stop 09/10/16 at 06:59; Status DC Ondansetron HCl (Zofran) 4 mg PRN Q6HRS PRN IV Nausea Last administered on 09/10 21:11; Start 09/10/16 at 07:00; Stop 09/11/16 at 06:59; Status DC Fentanyl Citrate (Fentanyl 2ml Vial) 25 mcg PRN Q5MIN PRN IV MILD PAIN; Start 09/10/16 at 07:00; Stop 09/11/16 at 06:59; Status DC Fentanyl Citrate (Fentanyl 2ml Vial) 50 mcg PRN Q5MIN PRN IV MODERATE PAIN; Start 09/10/16 at 07:00; Stop 09/11/16 at 06:59; Status DC Morphine Sulfate 1 mg 1 mg PRN Q10MIN PRN IV SEVERE PAIN; Start 09/10/16 at 07: 00; Stop 09/11/16 at 06:59; Status DC Lactated Ringer's (Iv Lactated Ringers) 1,000 ml @ 30 mls/hr Q24H IV Last administered on 09/10/16t 17:08; Start 09/10/16 at 07:00; Stop 09/10/16 at 18:59 ; Status DC Lidocaine HCl 2 ml 1X PRN PRN ID IV START; Start 09/10/16 at 07:00; Stop at 06:59; Status DC Hydromorphone HCl (Dilaudid) 0.5 mg PRN Q10MIN PRN IV SEVERE PAIN, Second choice; Start 09/10/16 at 07:00; Stop 09/11/16 at 06:59; Status DC Prochlorperazine Edisylate (Compazine) 5 mg PACU PRN PRN IV NAUSEA; Start 09/10 at 07:00; Stop 09/11/16 at 06:59; Status DC Etomidate (Amidate) 20 mg STK-MED ONCE IV ; Start 09/10/16 at 06:31; Stop at 06:32; Status DC Heparin Sodium (Porcine) 10,000 unit STK-MED ONCE .ROUTE ; Start 09/10/16 at 06: 31; Stop 09/10/16 at 06:32; Status DC Phenylephrine HCl (Iraj-Synephrine Inj) 10 mg STK-MED ONCE .ROUTE ; Start at 06:31; Stop 09/10/16 at 06:32; Status DC Lidocaine HCl 100 mg STK-MED ONCE .ROUTE ; Start 09/10/16 at 06:31; Stop at 06:32; Status DC Aminocaproic Acid (Amicar) 5,000 mg STK-MED ONCE IV ; Start 09/10/16 at 06:31; Stop 09/10/16 at 06:32; Status DC Rocuronium [place] 100 mg 100 mg STK-MED ONCE .ROUTE ; Start 09/10/16 at 06:31; Stop 09/10/16 at 06:32; Status DC Cefazolin Sodium/ Dextrose 50 ml @ As Directed STK-MED ONCE IV ; Start 09/10/16 at 06:31; Stop 09/10/16 at 06:32; Status DC Cefazolin Sodium/ Dextrose (Ancef 2gm Premix) 50 ml @ 100 mls/hr 1X PREOP PRN IV PER PROTOCOL; Start 09/10/16 at 07:00; Stop 09/10/16 at 12:00; Status DC Sufentanil Citrate (Sufenta) 250 mcg STK-MED ONCE .ROUTE ; Start 09/10/16 at 06: 54; Stop 09/10/16 at 06:55; Status DC Midazolam HCl 5 mg 5 mg STK-MED ONCE .ROUTE ; Start 09/10/16 at 06:54; Stop at 06:55; Status DC Nitroglycerin/ Dextrose (Nitroglycerin Drip) 0 ml @ As Directed STK-MED ONCE IV ; Start 09/10/16 at 06:57; Stop 09/10/16 at 06:58; Status DC Epinephrine HCl 1 mg STK-MED ONCE .ROUTE ; Start 09/10/16 at 06:57; Stop at 06:58; Status DC Ephedrine Sulfate 50 mg STK-MED ONCE IV ; Start 09/10/16 at 07:00; Stop at 07:01; Status DC Cellulose 1 each STK-MED ONCE .ROUTE ; Start 09/10/16 at 07:09; Stop 09/10/16 at 07:10; Status DC Cellulose 1 each STK-MED ONCE .ROUTE ; Start 09/10/16 at 07:09; Stop 09/10/16 at 07:10; Status DC Gelatin (Gelfoam Size 100) 1 each STK-MED ONCE .ROUTE ; Start 09/10/16 at 07:09 ; Stop 09/10/16 at 07:10; Status DC Thrombin 20,000 unit STK-MED ONCE TP ; Start 09/10/16 at 07:09; Stop 09/10/16 at 07:10; Status DC Vancomycin HCl (Vanco) 10 gm 1X ONCE CEMENT Last administered on 09/10/16t 09: 12; Start 09/10/16 at 07:30; Stop 09/10/16 at 07:31; Status DC Rocuronium [place] (Zemuron) 100 mg STK-MED ONCE .ROUTE ; Start 09/10/16 at 09: 09; Stop 09/10/16 at 09:10; Status DC Papaverine HCl 60 mg STK-MED ONCE .ROUTE Last administered on 09/10/16 09:45; Start 09/10/16 at 09:43; Stop 09/10/16 at 09:44; Status DC Sodium Chloride (Sodium Chloride) 50 ml STK-MED ONCE IJ Last administered on 09:45; Start 09/10/16 at 09:43; Stop 09/10/16 at 09:44; Status DC Heparin Sodium (Porcine) 10,000 unit STK-MED ONCE .ROUTE ; Start 09/10/16 at 10: 05; Stop 09/10/16 at 10:06; Status DC Heparin Sodium (Porcine) 10,000 unit STK-MED ONCE .ROUTE ; Start 09/10/16 at 10: 05; Stop 09/10/16 at 10:06; Status DC Midazolam HCl (Versed) 2 mg STK-MED ONCE .ROUTE ; Start 09/10/16 at 11:50; Stop 09/10/16 at 11:51; Status DC Midazolam HCl (Versed) 2 mg STK-MED ONCE .ROUTE ; Start 09/10/16 at 12:16; Stop 09/10/16 at 12:17; Status DC Cefazolin Sodium/ Dextrose (Ancef 2gm Premix) 2 gm STK-MED ONCE IV ; Start 09/10 at 06:30; Stop 09/10/16 at 12:42; Status DC Factor IX (Pha) (Novoseven Rt) 1 mg 1X ONCE IV Last administered on 09/10/16 15:00; Start 09/10/16 at 15:00; Stop 09/10/16 at 15:01; Status DC Protamine Sulfate 250 mg STK-MED ONCE IV ; Start 09/10/16 at 14:57; Stop at 14:58; Status DC Protamine Sulfate 250 mg STK-MED ONCE IV ; Start 09/10/16 at 14:57; Stop at 14:58; Status DC Heparin Sodium (Porcine) 10,000 unit STK-MED ONCE .ROUTE ; Start 09/10/16 at 15: 18; Stop 09/10/16 at 15:19; Status DC Lidocaine HCl 100 mg STK-MED ONCE .ROUTE ; Start 09/10/16 at 15:18; Stop at 15:19; Status DC Aminocaproic Acid (Amicar) 5,000 mg STK-MED ONCE IV ; Start 09/10/16 at 15:18; Stop 09/10/16 at 15:19; Status DC Mannitol (Mannitol) 12.5 g STK-MED ONCE .ROUTE ; Start 09/10/16 at 15:18; Stop 09/10/16 at 15:19; Status DC Calcium Chloride 1,000 mg STK-MED ONCE IV ; Start 09/10/16 at 15:18; Stop at 15:19; Status DC Sodium Bicarbonate 50 meq 50 meq STK-MED ONCE .ROUTE ; Start 09/10/16 at 15:18; Stop 09/10/16 at 15:19; Status DC Albumin Human (Albuminar) 100 ml @ As Directed STK-MED ONCE IV ; Start at 15:18; Stop 09/10/16 at 15:19; Status DC Heparin Sodium (Porcine) 30,000 unit STK-MED ONCE .ROUTE ; Start 09/10/16 at 15: 18; Stop 09/10/16 at 15:19; Status DC Magnesium Sulfate 5 gm STK-MED ONCE .ROUTE ; Start 09/10/16 at 15:18; Stop 09/10 at 15:19; Status DC Sodium Chloride 3 ml 3 ml PRN Q12HR PRN IV AFTER MEDS AND BLOOD DRAWS; Start at 15:30 Lactated Ringer's 1,000 ml @ 30 mls/hr Q24H IV Last administered on 09/10/16 17:00; Start 09/10/16 at 15:17 Albumin Human 250 ml @ 60 mls/hr PRN Q4HRS PRN IV SEE I/O RECORD Last administered on 09/10/16 19:42; Start 09/10/16 at 15:30 Insulin Human Regular/Sodium Chloride (Novolin R Vial/ Iv Normal Saline 150ml) 151.5 ml @ 0 mls/hr CONT PRN PRN IV SEE I/O RECORD Last administered on 17:49; Start 09/10/16 at 15:30; Stop 09/11/16 at 14:30; Status DC Dextrose 25 gm 25 gm PRN Q15MIN PRN IV LOW BLOOD SUGAR; Start 09/10/16 at 15:30 ; Stop 09/11/16 at 14:30; Status DC Dopamine HCl/ Dextrose 250 ml @ 0 mls/hr CONT PRN PRN IV SEE I/O RECORD; Start 09/10/16 at 15:30; Stop 09/11/16 at 14:30; Status DC Phenylephrine HCl 20 mg/Sodium Chloride 252 ml @ 0 mls/hr CONT PRN PRN IV HYPOTENSION; Start 09/10/16 at 15:30; Stop 09/11/16 at 14:30; Status DC Epinephrine HCl/ Sodium Chloride (Adrenalin/Iv Sodium Chloride 0.9% 250ml) 254 ml @ 0 mls/hr CONT PRN PRN IV POST CV SURGERY; Start 09/10/16 at 15:30; Stop at 14:30; Status DC Info 1 ea CONT PRN PRN MC SEE COMMENTS; Start 09/10/16 at 15:30 Info 1 ea 1 ea CONT PRN PRN MC SEE COMMENTS; Start 09/10/16 at 15:30 Magnesium Sulfate/ Dextrose (Magnesium Sulfate PREMIX 1GM) 100 ml @ 100 mls/hr PRN DAILY PRN IV FOR MAG < 2.2; Start 09/10/16 at 15:30 Famotidine (Pepcid) 20 mg BID IVP Last administered on 09/11/16 21:08; Start at 21:00 Ondansetron HCl (Zofran) 4 mg PRN Q4HRS PRN IV NAUSEA/VOMITING Last administered on 09/12/16 04:20; Start 09/10/16 at 15:30 Metoclopramide HCl (Reglan) 10 mg PRN Q6HRS PRN IV NAUSEA/VOMITING Last administered on 09/11/16 17:16; Start 09/10/16 at 15:30 Morphine Sulfate 2 mg PRN Q1HR PRN IV PAIN Last administered on 09/12/16 04:20 ; Start 09/10/16 at 15:30 Acetaminophen (Tylenol) 650 mg PRN Q4HRS PRN PO MILD PAIN / TEMP; Start at 15:30 Meperidine HCl 12.5 mg 12.5 mg PRN Q15MIN PRN IV SHIVERING; Start 09/10/16 at 15:30; Stop 09/11/16 at 14:30; Status DC Propofol (Diprivan) 100 ml @ 0 mls/hr CONT PRN PRN IV POSTOP SEDATION UNTIL EXTUBATE; Start 09/10/16 at 15:30 Senna/Docusate Sodium (Senna Plus) 1 tab BID PO Last administered on 09/11/16 21:08; Start 09/10/16 at 21:00 Aspirin (Ecotrin) 325 mg DAILYWBKFT PO Last administered on 09/11/16 08:24; Start 09/11/16 at 08:00; Stop 09/11/16 at 14:05; Status DC Aspirin (Aspirin) 300 mg PRN DAILY PRN WI IF UNABLE TO TAKE PO; Start 09/10/16 at 15:30; Stop 09/11/16 at 14:30; Status DC Albuterol Sulfate (Ventolin Neb Soln) 2.5 mg PRN Q4HRS PRN NEB SHORTNESS OF BREATH Last administered on 09/11/16 00:48; Start 09/10/16 at 15:30 Metoprolol Tartrate 25 mg 25 mg BID PO Last administered on 09/11/16 21:07; Start 09/10/16 at 21:00 Clevidipine (Cleviprex) 100 ml @ 0 mls/hr CONT PRN IV PER PROTOCOL Last administered on 09/10/16 23:27; Start 09/10/16 at 15:30; Stop 09/11/16 at 14:30 ; Status DC Acetaminophen/ Hydrocodone Bitart (Lortab 5/325) 1 tab PRN Q4HRS PRN PO MILD PAIN; Start 09/10/16 at 15:30 Acetaminophen/ Hydrocodone Bitart 2 tab 2 tab PRN Q4HRS PRN PO MODERATE PAIN, SEVERE PAIN Last administered on 09/12/16 02:25; Start 09/10/16 at 15:30 Cefazolin Sodium 3 gm/Sodium Chloride 100 ml @ 200 mls/hr Q8H IV ; Start at 17:00; Stop 09/10/16 at 17:56; Status DC Nitroglycerin/ Dextrose 250 ml @ As Directed STK-MED ONCE IV ; Start 09/10/16 at 16:00; Stop 09/11/16 at 14:30; Status DC Amiodarone HCl 150 mg/Dextrose 103 ml @ 618 mls/hr 1X ONCE IV Last administered on 09/10/16 17:09; Start 09/10/16 at 16:30; Stop 09/10/16 at 16:39 ; Status DC Amiodarone HCl/ Dextrose (Cordarone) 518 ml @ 34.53 mls/ hr CONT PRN IV SEE I/ O RECORD Last administered on 09/10/16 17:09; Start 09/10/16 at 16:30; Stop at 17:09; Status DC Isoflurane (Isoflurane) 90 ml STK-MED ONCE IH ; Start 09/10/16 at 16:36; Stop at 16:37; Status DC Rocuronium [place] 50 mg 50 mg STK-MED ONCE .ROUTE ; Start 09/10/16 at 17:08; Stop 09/10/16 at 17:09; Status DC Cefazolin Sodium 3 gm/Sodium Chloride 100 ml @ 200 mls/hr Q8H IV Last administered on 09/11/16 23:05; Start 09/10/16 at 23:00; Stop 09/12/16 at 07:29; Status DC Potassium Chloride 50 ml @ 50 mls/hr Q1H IV Last administered on 09/10/16 19: 42; Start 09/10/16 at 18:30; Stop 09/10/16 at 20:29; Status DC Potassium Chloride 50 ml @ 50 mls/hr 1X ONCE IV Last administered on 20:45; Start 09/10/16 at 20:30; Stop 09/10/16 at 21:29; Status DC Magnesium Sulfate/ Dextrose 100 ml @ 100 mls/hr 1X ONCE IV Last administered on 09/10/16 18:45; Start 09/10/16 at 19:00; Stop 09/10/16 at 19:59; Status DC Magnesium Sulfate/ Dextrose 100 ml @ 100 mls/hr 1X ONCE IV Last administered on 09/11/16 08:25; Start 09/11/16 at 07:00; Stop 09/11/16 at 07:59; Status DC Potassium Chloride (KCl Premix 20meq) 50 ml @ 50 mls/hr 1X ONCE IV Last administered on 09/11/16 08:24; Start 09/11/16 at 07:00; Stop 09/11/16 at 07:59; Status DC Furosemide (Lasix) 40 mg [id number] IVP Last administered on 09/12/16 05:52; Start 09/11/16 at 14:30 Amiodarone HCl (Cordarone) 200 mg BID PO Last administered on 09/11/16 21:08; Start 09/11/16 at 14:30 Metoclopramide HCl (Reglan) 10 mg PRN Q6HRS PRN IV NAUSEA/VOMITING; Start at 16:15; Status UNV Prochlorperazine Edisylate 10 mg 10 mg PRN Q6HRS PRN IV NAUSEA/VOMITING; Start 09/11/16 at 16:15 Amiodarone HCl 150 mg/Dextrose 103 ml @ 618 mls/hr 1X ONCE IV Last administered on 09/11/16 21:26; Start 09/11/16 at 21:30; Stop 09/11/16 at 21:39; Status DC Amiodarone HCl 900 mg/Dextrose 518 ml @ 0 mls/hr CONT PRN IV SEE I/O RECORD Last administered on 09/11/16 21:36; Start 09/11/16 at 22:00; Stop 09/11/16 at 22: 00; Status DC Amiodarone HCl/ Dextrose (Cordarone) 103 ml @ 618 mls/hr 1X ONCE IV Last administered on 09/12/16 02:23; Start 09/12/16 at 02:30; Stop 09/12/16 at 02:39; Status DC Active Scripts Active Reported [soma] 50 Mg PO HS Lisinopril 5 Mg Tablet 1 Tab PO HS Metoprolol Tartrate 50 Mg Tablet 1 Tab PO BID Cordarone (Amiodarone Hcl) 200 Mg Tablet 200 Mg PO BID Hydrochlorothiazide Tablet (Hydrochlorothiazide) 25 Mg Tablet 1 Tab PO DAILY Pertinent Labs/Test Laboratory Tests Test 09/10/16 08:58 09/10/16 09:58 09/10/16 10:32 09/10/16 11:00 Activated Clotting Time 117SEC (90-125) 579SEC (90-125) 754SEC (90-125) Bedside Hemoglobin (Calculated) 12.2g/dL (14-18) Bedside Hematocrit 36% (37-52) Bedside Arterial pH 7.35 (7.35-7.45) Bedside Arterial pCO2 49mmHg (35-45) Bedside Arterial pO2 95mmHg (75-100) Bedside Arterial HCO3 27mmol/L (21-28) Bedside Arterial Total CO2 28mmol/L (21-32) Arterial Bld O2 Saturation (Measur) 97% (95-99) Bedside Arterial Blood Base Excess 1mmol/L (0-3) Bedside FiO2 100.0 Bedside Sodium 139mmol/L (135-145) Bedside Potassium 3.3mmol/L (3.5-5.0) Glucose Level 97mg/dL (70-99) Bedside Ionized Calcium (Allie) 1.17mmol/L (1.13-1.32) Test 09/10/16 11:13 09/10/16 11:30 09/10/16 11:31 09/10/16 12:00 Bedside Hematocrit 37% (37-52) 37% (37-52) Bedside Venous pH 7.38 (7.32-7.42) Bedside Venous pCO2 44mmHg (41-51) Bedside Venous pO2 38mmHg (20-40) Bedside Venous HCO3 26mmol/L (24-28) Bedside Venous Blood Total CO2 27mmol/L (21-32) Bedside Venous Blood O2 Saturation 70% Bedside Venous Blood Base Excess 1mmol/L (0-3) POC Venous Hemoglobin (Calc) 12.6g/dL (14-18) Bedside FiO2 100 100.0 Bedside Sodium 142mmol/L (135-145) 140mmol/L (135-145) Bedside Potassium 3.4mmol/L (3.5-5.0) 3.5mmol/L (3.5-5.0) Glucose Level 94mg/dL (70-99) 96mg/dL (70-99) Bedside Ionized Calcium (Allie) 1.18mmol/L (1.13-1.32) 1.16mmol/L (1.13-1.32) Activated Clotting Time 501SEC (90-125) 524SEC (90-125) Bedside Hemoglobin (Calculated) 12.6g/dL (14-18) Bedside Arterial pH 7.40 (7.35-7.45) Bedside Arterial pCO2 43mmHg (35-45) Bedside Arterial pO2 162mmHg (75-100) Bedside Arterial HCO3 26mmol/L (21-28) Bedside Arterial Total CO2 28mmol/L (21-32) Arterial Bld O2 Saturation (Measur) 99% (95-99) Bedside Arterial Blood Base Excess 2mmol/L (0-3) Test 09/10/16 12:01 09/10/16 12:29 09/10/16 12:30 09/10/16 13:00 Bedside Hemoglobin (Calculated) 11.2g/dL (14-18) 10.9g/dL (14-18) 10.9g/dL (14-18) Bedside Hematocrit 33% (37-52) 32% (37-52) 32% (37-52) Bedside Arterial pH 7.46 (7.35-7.45) 7.43 (7.35-7.45) 7.42 (7.35-7.45) Bedside Arterial pCO2 37mmHg (35-45) 42mmHg (35-45) 41mmHg (35-45) Bedside Arterial pO2 331mmHg (75-100) 251mmHg (75-100) 192mmHg (75-100) Bedside Arterial HCO3 26mmol/L (21-28) 27mmol/L (21-28) 27mmol/L (21-28) Bedside Arterial Total CO2 28mmol/L (21-32) 29mmol/L (21-32) 28mmol/L (21-32) Arterial Bld O2 Saturation (Measur) 100% (95-99) 100% (95-99) 100% (95-99) Bedside Arterial Blood Base Excess 3mmol/L (0-3) 3mmol/L (0-3) 2mmol/L (0-3) Bedside FiO2 90.0 70.0 70.0 Bedside Sodium 140mmol/L (135-145) 141mmol/L (135-145) 141mmol/L (135-145) Bedside Potassium 3.4mmol/L (3.5-5.0) 3.6mmol/L (3.5-5.0) 3.8mmol/L (3.5-5.0) Glucose Level 96mg/dL (70-99) 113mg/dL (70-99) 129mg/dL (70-99) Bedside Ionized Calcium (Allie) 1.04mmol/L (1.13-1.32) 1.09mmol/L (1.13-1.32) 1.10mmol/L (1.13-1.32) Activated Clotting Time 503SEC (90-125) 491SEC (90-125) Test 09/10/16 13:30 09/10/16 14:00 09/10/16 14:29 09/10/16 14:35 Bedside Hemoglobin (Calculated) 10.9g/dL (14-18) 10.2g/dL (14-18) 10.5g/dL (14-18) Bedside Hematocrit 32% (37-52) 30% (37-52) 31% (37-52) Activated Clotting Time 479SEC (90-125) 423SEC (90-125) Bedside Arterial pH 7.40 (7.35-7.45) 7.36 (7.35-7.45) 7.34 (7.35-7.45) Bedside Arterial pCO2 43mmHg (35-45) 48mmHg (35-45) 51mmHg (35-45) Bedside Arterial pO2 203mmHg (75-100) 206mmHg (75-100) 212mmHg (75-100) Bedside Arterial HCO3 27mmol/L (21-28) 27mmol/L (21-28) 28mmol/L (21-28) Bedside Arterial Total CO2 28mmol/L (21-32) 29mmol/L (21-32) 29mmol/L (21-32) Arterial Bld O2 Saturation (Measur) 100% (95-99) 100% (95-99) 100% (95-99) Bedside Arterial Blood Base Excess 2mmol/L (0-3) 2mmol/L (0-3) 2mmol/L (0-3) Bedside FiO2 75.0 80.0 85.0 Bedside Sodium 141mmol/L (135-145) 140mmol/L (135-145) 141mmol/L (135-145) Bedside Potassium 3.6mmol/L (3.5-5.0) 3.9mmol/L (3.5-5.0) 3.7mmol/L (3.5-5.0) Glucose Level 135mg/dL (70-99) 138mg/dL (70-99) 129mg/dL (70-99) Bedside Ionized Calcium (Allie) 1.10mmol/L (1.13-1.32) 1.59mmol/L (1.13-1.32) 1.31mmol/L (1.13-1.32) Test 09/10/16 14:56 09/10/16 15:00 09/10/16 15:10 09/10/16 15:17 Bedside Hematocrit 30% (37-52) 30% (37-52) Bedside Venous pH 7.44 (7.32-7.42) Bedside Venous pCO2 42mmHg (41-51) Bedside Venous pO2 35mmHg (20-40) Bedside Venous HCO3 29mmol/L (24-28) Bedside Venous Blood Total CO2 30mmol/L (21-32) Bedside Venous Blood O2 Saturation 69% Bedside Venous Blood Base Excess 4mmol/L (0-3) POC Venous Hemoglobin (Calc) 10.2g/dL (14-18) Bedside FiO2 90 90.0 Bedside Sodium 142mmol/L (135-145) 141mmol/L (135-145) Bedside Potassium 3.6mmol/L (3.5-5.0) 3.7mmol/L (3.5-5.0) Glucose Level 124mg/dL (70-99) 124mg/dL (70-99) Bedside Ionized Calcium (Allie) 1.44mmol/L (1.13-1.32) 1.41mmol/L (1.13-1.32) Bedside Hemoglobin (Calculated) 10.2g/dL (14-18) Bedside Arterial pH 7.48 (7.35-7.45) Bedside Arterial pCO2 40mmHg (35-45) Bedside Arterial pO2 256mmHg (75-100) Bedside Arterial HCO3 30mmol/L (21-28) Bedside Arterial Total CO2 31mmol/L (21-32) Arterial Bld O2 Saturation (Measur) 100% (95-99) Bedside Arterial Blood Base Excess 6mmol/L (0-3) White Blood Count 11.8x10^3/uL (4.0-11.0) Hemoglobin 9.4g/dL (13.0-17.5) Hematocrit 27.1% (39.0-53.0) Platelet Count 149x10^3/uL (140-400) Prothrombin Time 12.4SEC (11.7-14.0) Prothromb Time International Ratio 1.0 (0.8-1.1) Activated Partial Thromboplast Time 34SEC (24-38) Fibrinogen 206mg/dL (200-440) O2 Saturation 97% (92-99) Arterial Blood pH 7.38 (7.35-7.45) Arterial Blood pCO2 at Patient Temp 39mmHg (35-46) Arterial Blood pO2 at Patient Temp 100mmHg (65-108) Arterial Blood HCO3 23mmol/L (21-28) Arterial Blood Base Excess -2mmol/L (-3-3) Oxyhemoglobin 96.0% Methemoglobin 0.1% (0.0-1.9) Carbon Monoxide, Quantitative 0.7% (0.0-1.9) FiO2 100 Test 09/10/16 15:35 09/10/16 16:08 09/10/16 17:00 09/10/16 17:07 Bedside Hemoglobin (Calculated) 9.2g/dL (14-18) 9.5g/dL (14-18) 9.5g/dL (14-18) Bedside Hematocrit 27% (37-52) 28% (37-52) 28% (37-52) Bedside Arterial pH 7.44 (7.35-7.45) 7.40 (7.35-7.45) 7.45 (7.35-7.45) Bedside Arterial pCO2 37mmHg (35-45) 43mmHg (35-45) 38mmHg (35-45) Bedside Arterial pO2 66mmHg (75-100) 124mmHg (75-100) 95mmHg (75-100) Bedside Arterial HCO3 25mmol/L (21-28) 27mmol/L (21-28) 27mmol/L (21-28) Bedside Arterial Total CO2 27mmol/L (21-32) 28mmol/L (21-32) 28mmol/L (21-32) Arterial Bld O2 Saturation (Measur) 94% (95-99) 99% (95-99) 98% (95-99) Bedside Arterial Blood Base Excess 1mmol/L (0-3) 2mmol/L (0-3) 3mmol/L (0-3) Bedside FiO2 90.0 100.0 100.0 Bedside Sodium 142mmol/L (135-145) 144mmol/L (135-145) 143mmol/L (135-145) Bedside Potassium 3.7mmol/L (3.5-5.0) 3.0mmol/L (3.5-5.0) 3.2mmol/L (3.5-5.0) Glucose Level 137mg/dL (70-99) 138mg/dL (70-99) 108mg/dL (70-99) Bedside Ionized Calcium (Allie) 1.38mmol/L (1.13-1.32) 1.13mmol/L (1.13-1.32) 1.25mmol/L (1.13-1.32) Activated Clotting Time 74SEC (90-125) Test 09/10/16 17:10 09/10/16 17:11 09/10/16 17:45 09/10/16 18:38 White Blood Count 11.3x10^3/uL (4.0-11.0) Red Blood Count 3.36x10^6/uL (4.30-5.70) Hemoglobin 10.3g/dL (13.0-17.5) Hematocrit 30.6% (39.0-53.0) Mean Corpuscular Volume 91fL (79-100) Mean Corpuscular Hemoglobin 31pg (25-35) Mean Corpuscular Hemoglobin Concent 34g/dL (31-37) Red Cell Distribution Width 13.6% (11.5-14.5) Platelet Count 142x10^3/uL (140-400) Prothrombin Time 12.5SEC (11.7-14.0) Prothromb Time International Ratio 1.0 (0.8-1.1) Activated Partial Thromboplast Time 42SEC (24-38) Glucose (Fingerstick) 160mg/dL (70-99) 130mg/dL (70-99) Sodium Level 146mmol/L (136-145) Potassium Level 3.4mmol/L (3.5-5.1) Chloride Level 107mmol/L (98-107) Carbon Dioxide Level 27mmol/L (21-32) Anion Gap 12 (6-14) Blood Urea Nitrogen 25mg/dL (8-26) Creatinine 1.7mg/dL (0.7-1.3) Estimated GFR (Cockcroft-Gault) 41.5 Glucose Level 142mg/dL (70-99) Calcium Level 9.4mg/dL (8.5-10.1) Magnesium Level 1.9mg/dL (1.8-2.4) Test 09/10/16 19:44 09/10/16 20:41 09/10/16 20:42 09/10/16 21:06 Glucose (Fingerstick) 143mg/dL (70-99) 148mg/dL (70-99) Hemoglobin 10.5g/dL (13.0-17.5) Hematocrit 31.1% (39.0-53.0) Mean Corpuscular Hemoglobin Concent 34g/dL (31-37) O2 Saturation 97% (92-99) Arterial Blood pH 7.45 (7.35-7.45) Arterial Blood pCO2 at Patient Temp 37mmHg (35-46) Arterial Blood pO2 at Patient Temp 100mmHg (65-108) Arterial Blood HCO3 25mmol/L (21-28) Arterial Blood Base Excess 1mmol/L (-3-3) FiO2 40 Test 09/10/16 21:39 09/10/16 22:42 09/10/16 22:55 09/10/16 23:44 Glucose (Fingerstick) 132mg/dL (70-99) 133mg/dL (70-99) 128mg/dL (70-99) Potassium Level 4.3mmol/L (3.5-5.1) Test 09/11/16 00:44 09/11/16 01:47 09/11/16 02:49 09/11/16 03:52 Glucose (Fingerstick) 140mg/dL (70-99) 131mg/dL (70-99) 131mg/dL (70-99) 121mg/dL (70-99) Test 09/11/16 04:51 09/11/16 05:50 09/11/16 05:54 09/11/16 07:08 Glucose (Fingerstick) 123mg/dL (70-99) 121mg/dL (70-99) 128mg/dL (70-99) White Blood Count 13.2x10^3/uL (4.0-11.0) Red Blood Count 3.56x10^6/uL (4.30-5.70) Hemoglobin 10.7g/dL (13.0-17.5) Hematocrit 31.9% (39.0-53.0) Mean Corpuscular Volume 90fL (79-100) Mean Corpuscular Hemoglobin 30pg (25-35) Mean Corpuscular Hemoglobin Concent 34g/dL (31-37) Red Cell Distribution Width 13.7% (11.5-14.5) Platelet Count 183x10^3/uL (140-400) Prothrombin Time 14.3SEC (11.7-14.0) Prothromb Time International Ratio 1.2 (0.8-1.1) Sodium Level 145mmol/L (136-145) Potassium Level 4.2mmol/L (3.5-5.1) Chloride Level 107mmol/L (98-107) Carbon Dioxide Level 29mmol/L (21-32) Anion Gap 9 (6-14) Blood Urea Nitrogen 24mg/dL (8-26) Creatinine 1.6mg/dL (0.7-1.3) Estimated GFR (Cockcroft-Gault) 44.5 Glucose Level 135mg/dL (70-99) Calcium Level 9.1mg/dL (8.5-10.1) Magnesium Level 2.0mg/dL (1.8-2.4) Test 09/11/16 08:12 09/11/16 09:17 09/11/16 10:01 09/11/16 12:52 Glucose (Fingerstick) 120mg/dL (70-99) 112mg/dL (70-99) 112mg/dL (70-99) 116mg/dL (70-99) Test 09/12/16 05:25 White Blood Count 14.2x10^3/uL (4.0-11.0) Red Blood Count 3.47x10^6/uL (4.30-5.70) Hemoglobin 10.4g/dL (13.0-17.5) Hematocrit 31.5% (39.0-53.0) Mean Corpuscular Volume 91fL (79-100) Mean Corpuscular Hemoglobin 30pg (25-35) Mean Corpuscular Hemoglobin Concent 33g/dL (31-37) Red Cell Distribution Width 13.6% (11.5-14.5) Platelet Count 169x10^3/uL (140-400) Neutrophils (%) (Auto) 82% (31-73) Lymphocytes (%) (Auto) 11% (24-48) Monocytes (%) (Auto) 6% (0-9) Eosinophils (%) (Auto) 0% (0-3) Basophils (%) (Auto) 0% (0-3) Neutrophils # (Auto) 11.7x10^3uL (1.8-7.7) Lymphocytes # (Auto) 1.5x10^3/uL (1.0-4.8) Monocytes # (Auto) 0.9x10^3/uL (0.0-1.1) Eosinophils # (Auto) 0.1x10^3/uL (0.0-0.7) Basophils # (Auto) 0.1x10^3/uL (0.0-0.2) Sodium Level 140mmol/L (136-145) Potassium Level 3.9mmol/L (3.5-5.1) Chloride Level 103mmol/L (98-107) Carbon Dioxide Level 30mmol/L (21-32) Anion Gap 7 (6-14) Blood Urea Nitrogen 22mg/dL (8-26) Creatinine 1.3mg/dL (0.7-1.3) Estimated GFR (Cockcroft-Gault) 56.5 Glucose Level 120mg/dL (70-99) Calcium Level 8.5mg/dL (8.5-10.1) Laboratory Tests Test 09/11/16 08:12 09/11/16 09:17 09/11/16 10:01 09/11/16 12:52 Glucose (Fingerstick) 120mg/dL (70-99) 112mg/dL (70-99) 112mg/dL (70-99) 116mg/dL (70-99) Test 09/12/16 05:25 White Blood Count 14.2x10^3/uL (4.0-11.0) Red Blood Count 3.47x10^6/uL (4.30-5.70) Hemoglobin 10.4g/dL (13.0-17.5) Hematocrit 31.5% (39.0-53.0) Mean Corpuscular Volume 91fL (79-100) Mean Corpuscular Hemoglobin 30pg (25-35) Mean Corpuscular Hemoglobin Concent 33g/dL (31-37) Red Cell Distribution Width 13.6% (11.5-14.5) Platelet Count 169x10^3/uL (140-400) Neutrophils (%) (Auto) 82% (31-73) Lymphocytes (%) (Auto) 11% (24-48) Monocytes (%) (Auto) 6% (0-9) Eosinophils (%) (Auto) 0% (0-3) Basophils (%) (Auto) 0% (0-3) Neutrophils # (Auto) 11.7x10^3uL (1.8-7.7) Lymphocytes # (Auto) 1.5x10^3/uL (1.0-4.8) Monocytes # (Auto) 0.9x10^3/uL (0.0-1.1) Eosinophils # (Auto) 0.1x10^3/uL (0.0-0.7) Basophils # (Auto) 0.1x10^3/uL (0.0-0.2) Sodium Level 140mmol/L (136-145) Potassium Level 3.9mmol/L (3.5-5.1) Chloride Level 103mmol/L (98-107) Carbon Dioxide Level 30mmol/L (21-32) Anion Gap 7 (6-14) Blood Urea Nitrogen 22mg/dL (8-26) Creatinine 1.3mg/dL (0.7-1.3) Estimated GFR (Cockcroft-Gault) 56.5 Glucose Level 120mg/dL (70-99) Calcium Level 8.5mg/dL (8.5-10.1) LAST VITALS Vital Signs Date Time Temp Pulse Resp B/P Pulse Ox O2 Delivery O2 Flow Rate FiO2 09/12/16 07:00 98.6 92 10 96/78 96 Nasal Cannula 2.0 98.6 FARAZ MTZ MD Sep 12, 2016 08:07
--- NOTE | 2016-09-12 08:11 | RAD ---
Portable chest, 09/11/2016, 7:48 PM: History: Postop evaluation Comparison is made to the study of earlier the same day. A left vascular sheath remains in place. The mediastinal drains are poorly defined. The heart size is unchanged. The pulmonary vascularity is normal. The left base has partially cleared with better definition of the hemidiaphragm. There is minimal residual pneumopericardium. No new abnormality is detected. IMPRESSION: Improving mild left basilar atelectasis/infiltrate.
--- NOTE | 2016-09-12 08:13 | RAD ---
Portable chest, 09/12/2016: History: Postop evaluation Comparison is made to yesterday evenings study. A left jugular vascular sheath and at least one mediastinal drain remains in place. The heart is enlarged. There is a persistent lucency projected over the left side of the heart compatible with residual pneumopericardium. The pulmonary vascularity is normal. The right chest remains clear. There is obscuration of the left hemidiaphragm compatible with worsening left basilar atelectasis/infiltrate. IMPRESSION: Worsening mild left basilar atelectasis/infiltrate.
[2016-09-12] MEDS: METOPROLOL TART IMMED RELEASE 25 MG TABLET PO SCH ×2 (09:00→21:00)
[2016-09-12] MEDS: AMIODARONE HCL 200 MG TABLET PO SCH ×2 (09:00→21:25)
[2016-09-12] MEDS: FAMOTIDINE 20 MG/2 ML VIAL IVP SCH ×2 (09:22→21:27)
[2016-09-12] MEDS: SENNOSIDES/DOCUSATE 8.6/50MG TABLET. PO SCH ×2 (09:24→21:23)
[2016-09-12] MEDS: CEFAZOLIN SODIUM 3 GM in IV NORMAL SALINE 100ML 100 ML IV SCH (11:45)
[2016-09-12] MEDS ORDERED: POTASSIUM CHLORIDE 20MEQ 50 ML IV ONE ×2 (11:45→23:45)
--- NOTE | 2016-09-12 14:54 | PDOC ---
Progress Note Subjective Subjective Went into A. fib with RVR last night. Still in A. fib, but rate controlled today. On amiodarone drip. Normotensive. Less O2 requirements down to 2 L nasal cannula. Excellent urine output and creatinine 1,3 which is lower than his baseline at 1,6. His right forearm numbness and weakness has significantly improved today. ROS ROS No nausea No vomiting No pain No rash Vital Sign Vital Signs Vital Signs Date Time Temp Pulse Resp B/P Pulse Ox O2 Delivery O2 Flow Rate FiO2 09/12/16 12:58 3 91 Nasal Cannula 2.0 09/12/16 09:00 100 99/72 09/12/16 07:00 98.6 98.6 Physical Exam PHYSICAL EXAM GENERAL: NAD, Alert HEENT: PERRL, OC/OP NECK: Supple, no JVD, no LN LUNGS: Clear HEART: S1S2, no gallop, no murmur ABD: Soft, NT, no organomegaly, no rebound EXT: No edema, no cyanosis DIESEL STATIONARY ENGINEER: Alert, oriented x 3, no focal neurologic deficit SKIN: No rash IV: ok Labs Lab Laboratory Tests Test 09/12/16 05:25 White Blood Count 14.2x10^3/uL (4.0-11.0) Red Blood Count 3.47x10^6/uL (4.30-5.70) Hemoglobin 10.4g/dL (13.0-17.5) Hematocrit 31.5% (39.0-53.0) Mean Corpuscular Volume 91fL (79-100) Mean Corpuscular Hemoglobin 30pg (25-35) Mean Corpuscular Hemoglobin Concent 33g/dL (31-37) Red Cell Distribution Width 13.6% (11.5-14.5) Platelet Count 169x10^3/uL (140-400) Neutrophils (%) (Auto) 82% (31-73) Lymphocytes (%) (Auto) 11% (24-48) Monocytes (%) (Auto) 6% (0-9) Eosinophils (%) (Auto) 0% (0-3) Basophils (%) (Auto) 0% (0-3) Neutrophils # (Auto) 11.7x10^3uL (1.8-7.7) Lymphocytes # (Auto) 1.5x10^3/uL (1.0-4.8) Monocytes # (Auto) 0.9x10^3/uL (0.0-1.1) Eosinophils # (Auto) 0.1x10^3/uL (0.0-0.7) Basophils # (Auto) 0.1x10^3/uL (0.0-0.2) Sodium Level 140mmol/L (136-145) Potassium Level 3.9mmol/L (3.5-5.1) Chloride Level 103mmol/L (98-107) Carbon Dioxide Level 30mmol/L (21-32) Anion Gap 7 (6-14) Blood Urea Nitrogen 22mg/dL (8-26) Creatinine 1.3mg/dL (0.7-1.3) Estimated GFR (Cockcroft-Gault) 56.5 Glucose Level 120mg/dL (70-99) Calcium Level 8.5mg/dL (8.5-10.1) Magnesium Level 2.0mg/dL (1.8-2.4) Objective Assessment POD#2 s/p ascending aortic aneurysm repair. New-onset of A. fib, which is rate controlled currently. Normotensive. Numbness and weakness in right forearm has significantly improved. Creatinine 1.3 which is less than his preoperative baseline of 1.6. Oxygen requirements down to 2 L nasal cannula. Plan Plan of Care D/c mediastinal tubes Will give additional amiodarone IV boluses for his A. fib. Also aggressive electrolyte replacement. If he remains in A. fib over the next couple of days, will consider DCCV Continue diuresis with 40 mg Lasix IV twice daily Ambulation and aggressive pulmonary toilet Wean O2 Heparin sub/q for DVT prophylaxis FRANKY AMEZCUA MD Sep 12, 2016 14:54
[2016-09-12] MEDS: POTASSIUM CHLORIDE 20MEQ 50 ML IV SCH ×2 (15:41→18:01)
[2016-09-12] MEDS ORDERED: MAGNESIUM SULFATE 2GM 50 ML IV ONE (17:00)
[2016-09-12] MEDS ORDERED: ALBUMIN HUMAN 5% 250 ML IV ONE (17:30)
[2016-09-12] MEDS: IV RINGERS,LACTATED 1000ML 1,000 ML IV SCH (18:03)
[2016-09-12] MEDS: PHENYLEPHRINE INJ 20 MG in IV NORMAL SALINE 250ML 250 ML IV PRN (19:15)
[2016-09-12] MEDS: HEPARIN PF for SUB-Q USE 5,000 UNIT/0.5 ML VIAL. SQ SCH (21:20)
[2016-09-12] MEDS ORDERED: ALBUMIN HUMAN 5% 500 ML IV ONE (22:15)
[2016-09-13] VITALS (25 sets, daily range): BP systolic 83–119; BP diastolic 55–86
[2016-09-13] MEDS: PHENYLEPHRINE INJ 20 MG in IV NORMAL SALINE 250ML 250 ML IV PRN ×2 (01:07→06:15)
[2016-09-13] MEDS: HYDROCODONE/APAP 5/325MG TABLET. PO PRN ×6 (03:08→21:12)
[2016-09-13] MEDS: ALBUMIN HUMAN 5% 250 ML IV PRN ×2 (03:09→04:06)
[2016-09-13] MEDS: FUROSEMIDE 40 MG/4 ML VIAL IVP SCH (06:00)
[2016-09-13 06:34] LABS: HEMATOCRIT 26.7 % (39.0-53.0); HEMOGLOBIN 8.7 g/dL (13.0-17.5); RED BLOOD COUNT 2.86 x10^6/uL (4.30-5.70); WHITE BLOOD COUNT 12.7 x10^3/uL (4.0-11.0)
[2016-09-13 06:44] LABS: CALCIUM 8.5 mg/dL (8.5-10.1); CREATININE 1.2 mg/dL (0.7-1.3); MAGNESIUM 2.2 mg/dL (1.8-2.4); POTASSIUM 4.2 mmol/L (3.5-5.1)
[2016-09-13] MEDS ORDERED: POTASSIUM CHLORIDE 20MEQ 50 ML IV ONE (07:00)
[2016-09-13] MEDS: METOPROLOL TART IMMED RELEASE 25 MG TABLET PO SCH (09:00)
[2016-09-13] MEDS: AMIODARONE HCL 200 MG TABLET PO SCH ×2 (09:00→18:27)
--- NOTE | 2016-09-13 09:01 | RAD ---
Portable chest, 09/13/2016: History: Postop evaluation Comparison is made to a study from 09/12/2016. The left jugular vascular sheath remains in place. The heart is enlarged. There is minimal residual pneumopericardium projected over the left side of the heart. The pulmonary vascularity is normal. There is mild residual left basilar atelectasis. The lungs are otherwise clear. There is no evidence of pneumothorax or definite pleural fluid. IMPRESSION: 1. Mild residual left basilar atelectasis. 2. No new abnormality is detected.
[2016-09-13] MEDS: FAMOTIDINE 20 MG/2 ML VIAL IVP SCH (09:29)
[2016-09-13] MEDS: SENNOSIDES/DOCUSATE 8.6/50MG TABLET. PO SCH ×2 (09:29→21:06)
[2016-09-13] MEDS: HEPARIN PF for SUB-Q USE 5,000 UNIT/0.5 ML VIAL. SQ SCH ×2 (09:42→21:11)
--- NOTE | 2016-09-13 14:28 | PDOC ---
Progress Note Subjective Subjective Converted back to sinus rhythm. Had some hypotension yesterday evening, which was most likely from hypovolemia from excessive diuresis. He got 750 mL's of albumin back and was temporarily on Iraj-Synephrine. He is normotensive today and off the Iraj-Synephrine. Good urine output and creatinine 1,2 which is lower than his baseline at 1,6. His right forearm numbness and weakness have resolved. He complains of incisional pain which appears to limit his mobility. ROS ROS No nausea No vomiting No pain No rash Vital Sign Vital Signs Vital Signs Date Time Temp Pulse Resp B/P Pulse Ox O2 Delivery O2 Flow Rate FiO2 09/13/16 10:30 82 98/76 Room Air 09/13/16 09:43 95 1.0 09/13/16 09:30 21 09/13/16 08:00 98.0 98.0 Physical Exam PHYSICAL EXAM GENERAL: NAD, Alert HEENT: PERRL, OC/OP NECK: Supple, no JVD, no LN LUNGS: Clear HEART: S1S2, no gallop, no murmur ABD: Soft, NT, no organomegaly, no rebound EXT: No edema, no cyanosis CIVIL ENGINEERING SPECIALIST: Alert, oriented x 3, no focal neurologic deficit SKIN: No rash IV: ok Labs Lab Laboratory Tests Test 09/12/16 22:15 09/12/16 22:40 09/13/16 06:00 09/13/16 09:15 Potassium Level 4.1mmol/L (3.5-5.1) 4.2mmol/L (3.5-5.1) 4.4mmol/L (3.5-5.1) Magnesium Level 2.3mg/dL (1.8-2.4) 2.2mg/dL (1.8-2.4) Glucose (Fingerstick) 136mg/dL (70-99) White Blood Count 12.7x10^3/uL (4.0-11.0) Red Blood Count 2.86x10^6/uL (4.30-5.70) Hemoglobin 8.7g/dL (13.0-17.5) Hematocrit 26.7% (39.0-53.0) Mean Corpuscular Volume 93fL (79-100) Mean Corpuscular Hemoglobin 31pg (25-35) Mean Corpuscular Hemoglobin Concent 33g/dL (31-37) Red Cell Distribution Width 14.0% (11.5-14.5) Platelet Count 182x10^3/uL (140-400) Sodium Level 140mmol/L (136-145) Chloride Level 103mmol/L (98-107) Carbon Dioxide Level 30mmol/L (21-32) Anion Gap 7 (6-14) Blood Urea Nitrogen 21mg/dL (8-26) Creatinine 1.2mg/dL (0.7-1.3) Estimated GFR (Cockcroft-Gault) 62.0 Glucose Level 110mg/dL (70-99) Calcium Level 8.5mg/dL (8.5-10.1) Objective Assessment POD#3 s/p ascending aortic aneurysm repair. Converted back to sinus rhythm. Normotensive today. On room air. Does have some incisional discomfort, especially when he coughs. Relatively slow with ambulation. Plan Plan of Care D/c cordis D/c hernandez D/c pacing wires Amiodarone 400mg po BID for AFib Continue diuresis with 40 mg Lasix IV daily Stop Metoprolol for now Ambulation and aggressive pulmonary toilet Heparin sub/q for DVT prophylaxis Add Tramadol for pain control Transfer to stepdown FRANKY AMEZCUA MD Sep 13, 2016 14:28
[2016-09-13] MEDS: FAMOTIDINE 20 MG TABLET. PO SCH (21:06)
[2016-09-14] MEDS ORDERED: POTASSIUM CHLORIDE 20 MEQ TABLET.ER. PO ONE (00:30)
[2016-09-14] MEDS ORDERED: AMIODARONE 150 MG in IV DEXTROSE 5% 100 ML IV ONE (00:30)
[2016-09-14] MEDS ORDERED: MAGNESIUM SULFATE 2GM 50 ML IV ONE (00:30)
[2016-09-14 03:45] VITALS: BP 133/94
[2016-09-14 08:00] VITALS: BP 101/69
[2016-09-14] MEDS: HYDROCODONE/APAP 5/325MG TABLET. PO PRN ×4 (08:48→21:50)
[2016-09-14] MEDS: AMIODARONE HCL 200 MG TABLET PO SCH ×2 (08:49→21:25)
[2016-09-14] MEDS: FAMOTIDINE 20 MG TABLET. PO SCH ×2 (08:49→21:24)
[2016-09-14] MEDS: SENNOSIDES/DOCUSATE 8.6/50MG TABLET. PO SCH ×2 (08:49→21:24)
[2016-09-14] MEDS: HEPARIN PF for SUB-Q USE 5,000 UNIT/0.5 ML VIAL. SQ SCH ×2 (08:58→21:29)
[2016-09-14] MEDS ORDERED: FUROSEMIDE 40 MG/4 ML VIAL IVP SCH (09:00)
[2016-09-14 12:00] VITALS: BP 122/80
[2016-09-14] MEDS: METOPROLOL TART IMMED RELEASE 25 MG TABLET PO SCH ×2 (13:55→21:00)
[2016-09-14 16:00] VITALS: BP 116/82
[2016-09-14] MEDS ORDERED: FUROSEMIDE 40 MG TABLET PO ONE (17:00)
[2016-09-14 19:50] VITALS: BP 93/78
[2016-09-15] VITALS (7 sets, daily range): BP systolic 101–125; BP diastolic 66–93
[2016-09-15] MEDS: SENNOSIDES/DOCUSATE 8.6/50MG TABLET. PO SCH ×2 (08:14→20:59)
[2016-09-15] MEDS: FAMOTIDINE 20 MG TABLET. PO SCH (08:14)
[2016-09-15] MEDS: FUROSEMIDE 40 MG TABLET PO SCH (08:14)
[2016-09-15] MEDS: AMIODARONE HCL 200 MG TABLET PO SCH ×2 (08:15→20:59)
[2016-09-15] MEDS: METOPROLOL TART IMMED RELEASE 25 MG TABLET PO SCH (08:15)
[2016-09-15] MEDS: HYDROCODONE/APAP 5/325MG TABLET. PO PRN ×3 (08:16→20:03)
[2016-09-15] MEDS: HEPARIN PF for SUB-Q USE 5,000 UNIT/0.5 ML VIAL. SQ SCH ×2 (08:22→21:06)
--- NOTE | 2016-09-15 15:21 | CARD ---
APPROVED REPORT EXAM: Transesophageal echocardiogram with color flow Doppler. INDICATION Ascending aortic aneurysm repair Reason For Test : Rule out aortic dissection PROCEDURE After obtaining informed consent, patient underwent transesophageal echo in the OR room 3. Type of Sedation : General Anesthesia Sedation was provided by anesthesiologist, see EMR for medications administered. Transesophageal probe was inserted and advanced into esophagus by anesthesia.. The BEENA was performed without complications. Throughout the procedure, the blood pressure, pulse oximetry, cardiac rhythm, and rate were monitored . The patient tolerated the procedure without adverse effects. Recovery from conscious sedation was une ventful and vital signs were stable. LEFT VENTRICLE The left ventricle is normal size. There is normal left ventricular wall thickness. The left ventricu lar systolic function is normal and the ejection fraction is within normal range. EF55% There is norm al LV segmental wall motion. RIGHT VENTRICLE The right ventricle is normal size. The right ventricular systolic function is normal. ATRIA The left atrium size is normal. The right atrium size is normal. The interatrial septum is intact wit h no evidence for an atrial septal defect or patent foramen ovale as noted on 2-D or Doppler imaging. There is no thrombus noted in the left atrial appendage. AORTIC VALVE The aortic valve is normal in structure. The aortic valve is trileaflet. Doppler and Color Flow revea led trace to mild aortic regurgitation. There is no significant aortic valvular stenosis. MITRAL VALVE The mitral valve is normal in structure and function. There is no mitral valve stenosis. Doppler and Color Flow revealed mild mitral regurgitation. TRICUSPID VALVE The tricuspid valve is normal in structure and function. Doppler and Color Flow revealed no tricuspid valve regurgitation noted. PULMONIC VALVE The pulmonary valve is normal in structure and function. Doppler and Color Flow revealed no pulmonic valvular regurgitation. GREAT VESSELS The aortic root is mildly enlarged. Measuring 4.4cm The IVC was visualized and appears normal in size . The SVC was visualized and appears normal in size. Critical Notification Critical Value: No <Conclusion> The left ventricular systolic function is normal and the ejection fraction is within normal range. EF 55% There is normal LV segmental wall motion. There is no thrombus noted in the left atrial appendage. The aortic valve is normal in structure. The aortic valve is trileaflet. The aortic root is mildly enlarged. Measuring 4.4cm
--- NOTE | 2016-09-15 18:27 | PDOC ---
Progress Note Subjective Subjective In and out of Afib. Normotensive. On room air. Weight still approx 5 lbs above dry. Pain adequately controlled. No BM postop. ROS ROS No nausea No vomiting No pain No rash Vital Sign Vital Signs Vital Signs Date Time Temp Pulse Resp B/P Pulse Ox O2 Delivery O2 Flow Rate FiO2 09/15/16 15:04 97.5 83 20 125/91 91 Room Air 97.5 09/15/16 14:05 2.0 Physical Exam PHYSICAL EXAM GENERAL: NAD, Alert HEENT: PERRL, OC/OP NECK: Supple, no JVD, no LN LUNGS: Clear HEART: S1S2, no gallop, no murmur ABD: Soft, NT, no organomegaly, no rebound EXT: No edema, no cyanosis PALLIATIVE CARE SPECIALIST: Alert, oriented x 3, no focal neurologic deficit SKIN: No rash IV: ok Objective Assessment POD#5 s/p ascending aortic aneurysm repair. In and out of Afib. Normotensive. On room air. No BM postop. Weight 5 lbs above dry Plan Plan of Care Increase Metoprolol to 50mg BID Amiodarone 400mg po BID for AFib Continue diuresis with 40 mg Lasix po daily Bowel regimen: senna, miralax, dulcolax Heparin sub/q for DVT prophylaxis Check K and Mg-replace if low Possible d/c home tomorrow +/- anticoagulation considering pAFib FRANKY AMEZCUA MD Sep 15, 2016 18:27
[2016-09-15] MEDS ORDERED: BISACODYL 10 MG SUPP.RECT PR PRN (18:30)
[2016-09-15 19:19] LABS: ALBUMIN 3.1 g/dL (3.4-5.0); ALBUMIN/GLOBULIN RATIO 0.7 (1.0-1.7); CALCIUM 8.8 mg/dL (8.5-10.1); CREATININE 1.4 mg/dL (0.7-1.3); GFR 51.9; MAGNESIUM 1.9 mg/dL (1.8-2.4); POTASSIUM 3.7 mmol/L (3.5-5.1); TOTAL BILIRUBIN 0.7 mg/dL (0.2-1.0); TOTAL PROTEIN 7.7 g/dL (6.4-8.2)
[2016-09-15] MEDS ORDERED: POTASSIUM CHLORIDE 20 MEQ TABLET.ER. PO ONE (19:30)
[2016-09-15] MEDS: POLYETHYLENE GLYCOL 3350 17 GM PACKET. PO SCH (20:04)
[2016-09-15] MEDS: MAGNESIUM OXIDE 400 MG TABLET PO SCH (20:59)
[2016-09-15] MEDS: METOPROLOL TART IMMED RELEASE 50 MG TABLET PO SCH (20:59)
[2016-09-15] MEDS: TRAMADOL 50 MG TABLET. PO PRN (21:15)
[2016-09-16 04:50] LABS: CALCIUM 8.6 mg/dL (8.5-10.1); CREATININE 1.3 mg/dL (0.7-1.3); GFR 56.5; POTASSIUM 4.1 mmol/L (3.5-5.1)
[2016-09-16] MEDS: HYDROCODONE/APAP 5/325MG TABLET. PO PRN ×3 (05:50→15:45)
[2016-09-16 07:00] VITALS: BP 101/71
[2016-09-16] MEDS: METOPROLOL TART IMMED RELEASE 50 MG TABLET PO SCH (09:00)
[2016-09-16 09:02] VITALS: BP 100/80
[2016-09-16] MEDS: SENNOSIDES/DOCUSATE 8.6/50MG TABLET. PO SCH (09:04)
[2016-09-16] MEDS: POLYETHYLENE GLYCOL 3350 17 GM PACKET. PO SCH (09:04)
[2016-09-16] MEDS: MAGNESIUM OXIDE 400 MG TABLET PO SCH (09:05)
[2016-09-16] MEDS: AMIODARONE HCL 200 MG TABLET PO SCH (09:05)
[2016-09-16] MEDS: TRAMADOL 50 MG TABLET. PO PRN (09:05)
[2016-09-16] MEDS: FUROSEMIDE 40 MG TABLET PO SCH (09:05)
[2016-09-16] MEDS: HEPARIN PF for SUB-Q USE 5,000 UNIT/0.5 ML VIAL. SQ SCH (09:12)
[2016-09-16 11:00] VITALS: BP 110/85
--- NOTE | 2016-09-16 13:45 | PDOC ---
Progress Note Subjective Subjective Back in sinus rhythm. Ambulating. Weight approx 5 lbs above dry. Pain adequately controlled. No BM postop. 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: Alert, oriented x 3, no focal neurologic deficit SKIN: No rash IV: ok Labs Lab Laboratory Tests Test 09/15/16 18:50 09/16/16 03:08 Sodium Level 140mmol/L (136-145) 140mmol/L (136-145) Potassium Level 3.7mmol/L (3.5-5.1) 4.1mmol/L (3.5-5.1) Chloride Level 100mmol/L (98-107) 103mmol/L (98-107) Carbon Dioxide Level 30mmol/L (21-32) 29mmol/L (21-32) Anion Gap 10 (6-14) 8 (6-14) Blood Urea Nitrogen 23mg/dL (8-26) 22mg/dL (8-26) Creatinine 1.4mg/dL (0.7-1.3) 1.3mg/dL (0.7-1.3) Estimated GFR (Cockcroft-Gault) 51.9 56.5 BUN/Creatinine Ratio 16 (6-20) Glucose Level 137mg/dL (70-99) 93mg/dL (70-99) Calcium Level 8.8mg/dL (8.5-10.1) 8.6mg/dL (8.5-10.1) Magnesium Level 1.9mg/dL (1.8-2.4) Total Bilirubin 0.7mg/dL (0.2-1.0) Aspartate Amino Transf (AST/SGOT) 37U/L (15-37) Alanine Aminotransferase (ALT/SGPT) 50U/L (16-63) Alkaline Phosphatase 158U/L (46-116) Total Protein 7.7g/dL (6.4-8.2) Albumin 3.1g/dL (3.4-5.0) Albumin/Globulin Ratio 0.7 (1.0-1.7) Objective Assessment POD#6 s/p ascending aortic aneurysm repair. Sinus rhythm and normotensive. No BM postop. Weight 5 lbs above dry Plan Plan of Care D/c home today Metoprolol to 50mg BID Amiodarone 400mg po BID for 1 month 40 mg Lasix po daily with 20 meq KCL and Mag-oxide for 1 week Dulcolax supp prior to discharge Full dose ASA for pAfib F/u in clinic in 2-3 weeks with CXR beforehand FRANKY AMEZCUA MD Sep 16, 2016 13:45
[2016-09-16] MEDS ORDERED: BISACODYL 10 MG SUPP.RECT PR ONE (14:00)
[2016-09-16] MEDS ORDERED: HYDR-2666 PO (14:50)
[2016-09-16] MEDS ORDERED: POTA20TA4 PO (14:50)
[2016-09-16] MEDS ORDERED: FURO40TA4 PO (14:50)
[2016-09-16] MEDS ORDERED: AMIO200T2 PO (14:50)
[2016-09-16] MEDS ORDERED: MAGN400T22 PO (14:50)
--- NOTE | 2016-09-16 15:10 | PDOC3 ---
Discharge Summary* Date of Admission: Sep 10, 2016 Date of Discharge: Sep 16, 2016 Admitting Diagnosis Problems Medical Problems: (1) Ascending aortic aneurysm Status: Acute (2) Atrial fibrillation Status: Acute 3. hypertension 4. renal cell carcinoma with previous nephrectomy 5. CKD 6. pancreatic nodules with completed evaluation Final Diagnosis Problems Medical Problems: (1) Ascending aortic aneurysm Status: Acute (2) Atrial fibrillation Status: Acute 3. hypertension 4. renal cell carcinoma with previous nephrectomy 5. CKD 6. pancreatic nodules with a completed evaluation 7. morbid obesity 8. post-operative anemia CONSULTS none Procedures 1) Repair of ascending aortic aneurysm using a 28 mm Hemashield graft 2) Aortic wrap of the distal anastomosis using a 8 mm Hemashield graft 3) BEENA intra-operatively: LVEF 55% with normal LV segmental wall motion; no thrombus in the LAYLA; aortic root 4.4 cm Brief Hospital Course Mr. Berrios is a 60 year old male who was found to have an ascending aortic aneurysm of 5.3 cm on echo done in association with atrial fib evaluation and DCCV in February 2016. The aneurysm was confirmed to be 5.3 - 5.4 cm on subsequent CTA of the chest. Normal coronaries were present on LHC and the aortic valve was tricuspid with trace AI. Repair of the aneurysm was discussed with patient, including risks, benefits, and limitations, in the office and patient elected to proceed. He underwent surgery on 09/10/2016 with fast-track extubation post-operatively. Went into atrial fibrillation on POD#1 in the evening. Treated with IV amiodarone and then converted to oral amiodarone. Converted back to NSR on POD # 3 but has had PAF with rates into the 150s. Rate controlled with beta-blockers. Moved out of ICU to CVC with activity increased. Dressings removed. Discharge home today. Discharging on amiodarone 400 mg BID; furosemide 40 mg X 7days with Klor-Con 20 mEq X 7days and mag-ox 400 mg BID X 7 days; ASA 325 mg daily; metoprolol 50 mg BID; hydrocodone/apap 5/ 325 1-2 tabs Q6H prn #30; no refills. Disposition/Orders: D/C to Home CONDITION AT DISCHARGE: Stable Diet: Cardiac Scheduled ([soma]) 50 MG PO HS (Reported) Amiodarone Hcl (Cordarone) 200 MG PO BID (Reported) Hydrochlorothiazide (Hydrochlorothiazide Tablet ) 1 TAB PO DAILY (Reported) Lisinopril (Lisinopril) 1 TAB PO HS (Reported) Metoprolol Tartrate (Metoprolol Tartrate) 1 TAB PO BID (Reported) FOLLOW UP APPOINTMENT: Dr. Santo Roberson on 09/27/[address] Ankita Perez on 10/18/16 PCP 7-10 days Time Spent Total time spent with patient [35] minutes for coordination of care, counseling , and education. BLAS NEVILLE APRN Sep 16, 2016 15:10
[2016-09-16] MEDS ORDERED: ASPI325T11 PO (15:31)
[2016-10-01] MEDS ORDERED: OXYC1TAB7 PO (11:55)
[2016-10-01] MEDS ORDERED: COLC0.6T34 PO (11:55)
== END 2016-09-16 17:47 | disposition home or self-care (01) | DRG 220 ==
LOC: OPSVCIP 05:37 → 1 WEST ICU 10:37 → 2 NORTH 09-13 17:58
PROVIDERS: ADMIT Thoracic Surgery (Cardiothoracic Vascular Surgery); ATTEND Thoracic Surgery (Cardiothoracic Vascular Surgery)
PROC: 04R00JZ Replacement of Abdominal Aorta with Synthetic Substitute, Open Approach (ICD-10-PCS; 2016-09-10)
PROC: 30233L1 Transfusion of Nonautologous Fresh Plasma into Peripheral Vein, Percutaneous Approach (ICD-10-PCS; 2016-09-10)
PROC: 30233N1 Transfusion of Nonautologous Red Blood Cells into Peripheral Vein, Percutaneous Approach (ICD-10-PCS; 2016-09-10)
PROC: 30233K1 Transfusion of Nonautologous Frozen Plasma into Peripheral Vein, Percutaneous Approach (ICD-10-PCS; 2016-09-10)
PROC: 5A1221Z Performance of Cardiac Output, Continuous (ICD-10-PCS; 2016-09-10)
PROC: 02RW0JZ Replacement of Thoracic Aorta, Descending with Synthetic Substitute, Open Approach (ICD-10-PCS; principal; 2016-09-10 07:30)
DX: I71.2 Thoracic aortic aneurysm, without rupture (principal); C64.9 Malignant neoplasm of unspecified kidney, except renal pelvis; Z68.41 Body mass index [BMI] 40.0-44.9, adult; D62 Acute posthemorrhagic anemia; I12.9 Hypertensive chronic kidney disease with stage 1 through stage 4 chronic kidney disease, or unspecified chronic kidney disease; I48.0 Paroxysmal atrial fibrillation; E86.1 Hypovolemia; I95.9 Hypotension, unspecified; E66.01 Morbid (severe) obesity due to excess calories; N18.9 Chronic kidney disease, unspecified; Z82.49 Family history of ischemic heart disease and other diseases of the circulatory system; Z85.528 Personal history of other malignant neoplasm of kidney; Z79.82 Long term (current) use of aspirin; Z86.73 Personal history of transient ischemic attack (TIA), and cerebral infarction without residual deficits; Z90.5 Acquired absence of kidney; Z90.49 Acquired absence of other specified parts of digestive tract; Z87.891 Personal history of nicotine dependence
CPT/HCPCS: 36415; 36600; 71010; 80048; 80053; 82803; 82805; 82947; 83735; 84132; 85014; 85018; 85027; 85347; 85384; 85610; 85730; 86850; 86900; 86901; 86920; 86927; 93005; 93312; 93325; 94002; 94250; 94640; 94760; A4215; C1768; C1781; J0171; J0282; J0690; J1644; J1815; J1940; J2150; J2250; J2270; J2405; J2440; J2765; J3370; J3475; J3480; J3490; J7040; J7050; J7060; J7120; J7189; P9017; P9035; P9041; P9045; P9046; S0028; 97116; 97530; 97535; C9248; J7030

== ENCOUNTER 2016-09-24 12:16 | Inpatient (IN) | payer OTHER ==
[~2016-09-24] VITALS: Ht 177.8 cm; Wt 124.8 kg
[~2016-09-24 12:16] MED LIST changes: +AMIO200T2 PO; +ASPI325T11 PO; +FURO40TA4 PO; +HYDR-2666 PO; +MAGN400T22 PO; +POTA20TA4 PO
--- NOTE | 2016-09-24 12:36 | ED.ADGEN ---
Adult General Chief Complaint Chief Complaint: CHEST PAIN HPI HPI Patient is a 60 year old and, a history with atrial fibrillation, of repair of ascending aortic aneurysm using a 28 mm Hemashield graft and aortic wrap of the distal anastomosis using a 8 mm Hemashield graft on 09/10/2016, who presents emergency Department with complaint of worsening chest pain and shortness of breath over the past several days. Patient states yesterday he was in the shower and he had a coughing followed by an episode of vomiting of "white frothy stuff". Patient states that he feels as though he can't take a deep breath, and is complaining of pain across anterior portion of his chest. He states it's consistent with his postsurgical pain but more intense. Denies any new injuries, denies any lightheadedness or dizziness, any weakness, numbness or tingling, any GI or complaints. 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 Patient states he has been compliant with all medications. Review of Systems Review of Systems Constitutional: Denies fever or chills. [] Eyes: Denies change in visual acuity. [] HENT: Denies nasal congestion or sore throat. [] Respiratory: Cough, shortness of breath. Cough is nonproductive. Cardiovascular: Chest pain, shortness of breath. No edema. GI: Denies abdominal pain, nausea, vomiting, bloody stools or diarrhea. [] : Denies dysuria. [] Musculoskeletal: Denies back pain or joint pain. [] Integument: Denies rash. [] Neurologic: Denies headache, focal weakness or sensory changes. [] Endocrine: Denies polyuria or polydipsia. [] Lymphatic: Denies swollen glands. [] Psychiatric: Denies depression or anxiety. [] Current Medications Current Medications Current Medications Medications (Trade) Dose Ordered Sig/Cj Start Time Stop Time Status Last Admin Dose Admin Fentanyl Citrate (Fentanyl 2ml Vial) 50 mcg PRN Q15MIN PRN 09/24/16 12:45 09/24/16 18:46 DC 09/24/16 14:40 50 MCG Ondansetron HCl 4 mg 4 mg 1X ONCE 09/24/16 12:45 09/24/16 12:46 DC 09/24/16 12:57 4 MG Sodium Chloride (Iv Sodium Chloride 0.9% 1000ml Bag) 1,000 ml @ 1,000 mls/hr 1X ONCE 09/24/16 13:15 09/24/16 14:14 DC 09/24/16 13:12 1,000 MLS/HR Sulfur Hexafluoride Microspheres (Lumason) 25 mg STK-MED ONCE 09/24/16 15:29 09/24/16 15:30 DC Allergies Allergies Allergies Coded Allergies Type Severity Reaction Last Updated Verified No Known Drug Allergies 09/10/16 No Physical Exam Physical Exam Constitutional: Well developed, well nourished, mild distress secondary to pain , ill in appearance. HENT: Normocephalic, atraumatic, bilateral external ears normal, oropharynx moist, no oral exudates, nose normal. [] Eyes: PERRLA, EOMI, conjunctiva normal, no discharge. [] Neck: Normal range of motion, no tenderness, supple, no stridor. [] Cardiovascular: Heart rate is irregular, S1, S2, soft heart sounds, systolic murmur, no rubs, no gallops, patient with healing surgical incision across his anterior chest, site is clean dry and intact with no evidence of dehiscence. [] Lungs & Thorax: Diminished breath sounds throughout, with poor air movement, has patient is hesitant to take deep breaths. Abdomen: Bowel sounds normal, soft, no tenderness, no rebound, rigidity, no guarding, no masses, no pulsatile masses. [] Skin: Warm, dry, no erythema, no rash. [] Back: No tenderness, no CVA tenderness. [] Extremities: No tenderness, no cyanosis, no clubbing, ROM intact, no edema. [] Neurologic: Alert and oriented X 3, normal motor function, normal sensory function, no focal deficits noted. [] Psychologic: Affect normal, judgement normal, mood normal. [] Current Patient Data Vital Signs Vital Signs Date Time Temp Pulse Resp B/P Pulse Ox O2 Delivery O2 Flow Rate FiO2 09/24/16 15:30 88 18 103/89 98 Nasal Cannula 2 09/24/16 12:30 97.7 97.7 Lab Values Laboratory Tests Test 09/24/16 12:26 09/24/16 13:00 White Blood Count 17.2x10^3/uL (4.0-11.0) H Red Blood Count 3.37x10^6/uL (4.30-5.70) L Hemoglobin 9.9g/dL (13.0-17.5) L Hematocrit 31.0% (39.0-53.0) L Mean Corpuscular Volume 92fL (79-100) Mean Corpuscular Hemoglobin 30pg (25-35) Mean Corpuscular Hemoglobin Concent 32g/dL (31-37) Red Cell Distribution Width 14.3% (11.5-14.5) Platelet Count 800x10^3/uL (140-400) #H Neutrophils (%) (Auto) 80% (31-73) H Lymphocytes (%) (Auto) 13% (24-48) L Monocytes (%) (Auto) 6% (0-9) Eosinophils (%) (Auto) 0% (0-3) Basophils (%) (Auto) 1% (0-3) Neutrophils # (Auto) 13.7x10^3uL (1.8-7.7) H Lymphocytes # (Auto) 2.3x10^3/uL (1.0-4.8) Monocytes # (Auto) 1.0x10^3/uL (0.0-1.1) Eosinophils # (Auto) 0.0x10^3/uL (0.0-0.7) Basophils # (Auto) 0.2x10^3/uL (0.0-0.2) Segmented Neutrophils % 88% (35-66) H Lymphocytes % 10% (24-48) L Basophils % 1% (0-3) Metamyelocytes % 1% (0-0) H Platelet Estimate Increased (ADEQUATE) Giant Platelets Few Polychromasia Slight Prothrombin Time 15.1SEC (11.7-14.0) H Prothrombin Time INR 1.3 (0.8-1.1) H PTT 30SEC (24-38) Sodium Level 139mmol/L (136-145) Potassium Level 4.6mmol/L (3.5-5.1) Chloride Level 100mmol/L (98-107) Carbon Dioxide Level 25mmol/L (21-32) Anion Gap 14 (6-14) Blood Urea Nitrogen 29mg/dL (8-26) H Creatinine 1.9mg/dL (0.7-1.3) H Estimated GFR (Cockcroft-Gault) 36.5 BUN/Creatinine Ratio 15 (6-20) Glucose Level 131mg/dL (70-99) H Lactic Acid Level 2.7mmol/L (0.4-2.0) H Calcium Level 9.5mg/dL (8.5-10.1) Total Bilirubin 0.9mg/dL (0.2-1.0) Aspartate Amino Transferase (AST) 65U/L (15-37) H Alanine Aminotransferase (ALT) 82U/L (16-63) H Alkaline Phosphatase 261U/L (46-116) H Troponin I Quantitative 0.036ng/mL (0.000-0.055) XU-Rju-G-Type Natriuretic Peptide 6065pg/mL (0-124) H Total Protein 8.7g/dL (6.4-8.2) H Albumin 3.3g/dL (3.4-5.0) L Albumin/Globulin Ratio 0.6 (1.0-1.7) L Influenza Type A Antigen Negative (NEGATIVE) Influenza Type B Antigen Negative (NEGATIVE) Laboratory Tests 09/24/16 12:26 Laboratory Tests 09/24/16 12:26 EKG EKG EC: Irregular rhythm, atrial fibrillation, QTC of 512, QRS of 132, patient with contour abnormality noted throughout the inferior and anterior and septal leads, abnormal ECG, does not meet STEMI criteria. Unable to access previous for comparison. As interpreted by me. [] Radiology/Procedures Radiology/Procedures [] [facility] [address] [place], [place] [id number] IMAGING REPORT Signed PATIENT: FELICITA HERNANDEZ ACCOUNT: [id number] : 1955 LOCATION: ER AGE: 60 SEX: M EXAM STATUS: REG ER ORD. PHYSICIAN: MONET FLOR DO REASON: CP PROCEDURE: PORTABLE CHEST 1V Indication: Chest pain. CABG on the . Technique: AP upright portable chest radiograph was obtained. Comparison is from September 13, 2016. Findings: The heart is enlarged. There is no heart failure. Median sternotomy wires are noted. The lungs are clear. Costophrenic angles are clear. Leads overlie the patient. Impression: Cardiomegaly. DICTATED and SIGNED BY: GWEN HERNANDEZ MD DATE: 09/24/16 1253 CC: SHARRON SAHU APRN; MONET FLOR DO ~ Impressions: [facility] [address] [place] [address] IMAGING REPORT Signed PATIENT: FELICITA HERNANDEZ ACCOUNT: [id number] : 1955 LOCATION: ER AGE: 60 SEX: M EXAM STATUS: REG ER ORD. PHYSICIAN: MONET FLOR DO REASON: CP/SOB PROCEDURE: CHEST WO CONTRAST Indication: Cough and short of air. Chest pain. Technique: Axial images and coronal and sagittal reformatted images are provided. Comparison is from July 25, 2016. There is also chest radiograph from September 24, 2016. One or more of the following individualized dose reduction techniques were utilized for this examination: 1. Automated exposure control 2. Adjustment of the mA and/or kV according to patient size 3. Use of iterative reconstruction technique Findings: 2 mm nodule in the left upper lobe is stable. No new nodule is identified. Linear atelectasis in the lung bases is noted. Minimal pleural effusions are noted. There is atheromatous disease in the thoracic aorta. Surgery has been performed on the ascending aorta since prior examination. At the level of the sinuses, ascending aorta measures 4.8 cm. At the sinotubular junction at the beginning of the surgical device, aorta now measures 3.0 cm in diameter. Just distal to the device descending aorta measures 3.9 cm. There is a pericardial effusion, large. There are postsurgical changes in the gallbladder fossa and right renal bed. One of the pancreas lesions described on prior report is apparent on the noncontrast study, unchanged. There are degenerative changes in the spine. Impression: 1. Linear atelectasis in the lung bases, increased from prior study. 2. New minimal pleural effusions and large pericardial effusion. 3. Postsurgical changes noted of ascending aortic aneurysm repair. DICTATED and SIGNED BY: GWEN HERNANDEZ MD DATE: 09/24/16 1423 CC: SHARRON SAHU APRN; MONET FLOR DO ~ Course & Med Decision Making Course & Med Decision Making Pertinent Labs and Imaging studies reviewed. (See chart for details) Patient received fentanyl, initial blood pressure was at 130s over 70s, patient' s blood pressure did drop to 80s over 60s, heart rate remains in the 80s to 90s , patient states his pain is significantly improved. Chest x-ray reveals cardiomegaly, no evidence of pneumothorax, or infiltrate. I did speak with Dr. Perez of cardiology and the patient's surgeon Dr. Roberson. Findings thus far discussed, patient received a noncontrast CT of the chest, and echo in the emergency department, which revealed a layering pericardial effusion, with fluid and debris. Patient remained hemodynamically stable at this time, per cardiology history, as physician state he has history of hypotension, but has normal mentation, and improved control of his pain, with pressures fluctuating between the 90s to the low 100s, heart rate is in the 80s. Patient is receiving fluids, they do not recommend instituting any other support unless the patient drops down into the 60s systolic. Patient did not experience this degree of hypotension during his ED course. CT of the chest findings discussed at bedside with patient and family, by myself, and also with the above physicians, plan for the patient to receive pericardial drainage tomorrow morning, per request of Dr. Perez, will institute a [employer] infusion for adequate pain control, patient remain nothing by mouth after midnight for procedure. Patient and family at bedside with understanding and agreement with this plan. Findings as above discussed with Dr. Pitts of internal medicine, patient accepted to her service as a full admission to the cardiac telemetry floor with consultations and plan as above. Bridge orders entered as stated. Dragon Disclaimer Dragon Disclaimer This electronic medical record was generated, in whole or in part, using a voice recognition dictation system. Critical Care Time Critical care time was 25 minutes exclusive of procedures. Departure Impression: Primary Impression: Pericardial effusion Disposition: 09 ADMITTED INPATIENT Condition: IMPROVED MONET FLOR DO Sep 24, 2016 12:36
[2016-09-24 12:42] LABS: BASO # 0.2 x10^3/uL (0.0-0.2); BASO % 1 % (0-3); EOS % 0 % (0-3); HEMOGLOBIN 9.9 g/dL (13.0-17.5); LYMPH # 2.3 x10^3/uL (1.0-4.8); LYMPH % 13 % (24-48); MEAN CORPUSCULAR HEMOGLOBIN 30 pg (25-35); MEAN CORPUSCULAR HGB CONC 32 g/dL (31-37); MEAN CORPUSCULAR VOLUME 92 fL (79-100); MONO % 6 % (0-9); NEUT % 80 % (31-73); PLATELET COUNT 800 x10^3/uL (140-400); RED BLOOD COUNT 3.37 x10^6/uL (4.30-5.70); RED CELL DISTRIBUTION WIDTH 14.3 % (11.5-14.5); WHITE BLOOD COUNT 17.2 x10^3/uL (4.0-11.0)
[2016-09-24] MEDS ORDERED: ONDANSETRON PF 4 MG/2 ML VIAL. IV ONE (12:45)
[2016-09-24 12:54] LABS: CALCIUM 9.5 mg/dL (8.5-10.1); CREATININE 1.9 mg/dL (0.7-1.3); GFR 36.5; POTASSIUM 4.6 mmol/L (3.5-5.1)
[2016-09-24 12:55] LABS: INR 1.3 (0.8-1.1); PROTHROMBIN TIME PATIENT 15.1 SEC (11.7-14.0)
[2016-09-24] MEDS: FENTANYL PF 100 MCG/2 ML VIAL. IV PRN ×2 (12:57→14:40)
[2016-09-24 13:00] LABS: ALBUMIN 3.3 g/dL (3.4-5.0); ALBUMIN/GLOBULIN RATIO 0.6 (1.0-1.7); TOTAL BILIRUBIN 0.9 mg/dL (0.2-1.0); TOTAL PROTEIN 8.7 g/dL (6.4-8.2)
--- NOTE | 2016-09-24 13:02 | RAD ---
Indication: Chest pain. CABG on the . Technique: AP upright portable chest radiograph was obtained. Comparison is from September 13, 2016. Findings: The heart is enlarged. There is no heart failure. Median sternotomy wires are noted. The lungs are clear. Costophrenic angles are clear. Leads overlie the patient. Impression: Cardiomegaly.
--- NOTE | 2016-09-24 13:14 | EKG ---
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 MISSING -LEAD V 4. RIGHT BUNDLE BRANCH BLOCK. Electronically Signed On 09-26-2016 21:23:07 CDT by Lyric Traore
[2016-09-24] MEDS ORDERED: IV NORMAL SALINE 1000ML BAG 1,000 ML IV ONE (13:15)
[2016-09-24 13:59] LABS: OBC FLU VALID
[2016-09-24 14:08] LABS: % BASOS 1 % (0-3)
[2016-09-24 14:11] LABS: PLT ESTIMATE INCREASED (ADEQUATE); POLYCHROMASIA SLIGHT
--- NOTE | 2016-09-24 14:34 | RAD ---
Indication: Cough and short of air. Chest pain. Technique: Axial images and coronal and sagittal reformatted images are provided. Comparison is from July 25, 2016. There is also chest radiograph from September 24, 2016. One or more of the following individualized dose reduction techniques were utilized for this examination: 1. Automated exposure control 2. Adjustment of the mA and/or kV according to patient size 3. Use of iterative reconstruction technique Findings: 2 mm nodule in the left upper lobe is stable. No new nodule is identified. Linear atelectasis in the lung bases is noted. Minimal pleural effusions are noted. There is atheromatous disease in the thoracic aorta. Surgery has been performed on the ascending aorta since prior examination. At the level of the sinuses, ascending aorta measures 4.8 cm. At the sinotubular junction at the beginning of the surgical device, aorta now measures 3.0 cm in diameter. Just distal to the device descending aorta measures 3.9 cm. There is a pericardial effusion, large. There are postsurgical changes in the gallbladder fossa and right renal bed. One of the pancreas lesions described on prior report is apparent on the noncontrast study, unchanged. There are degenerative changes in the spine. Impression: 1. Linear atelectasis in the lung bases, increased from prior study. 2. New minimal pleural effusions and large pericardial effusion. 3. Postsurgical changes noted of ascending aortic aneurysm repair.
[2016-09-24] MEDS ORDERED: SULFUR HEXAFLUORIDE MICROSPHR 25 MG VIAL. IVP ONE ×2 (15:29→16:15)
[2016-09-24] MEDS ORDERED: NALOXONE 0.4 MG/ML VIAL. IV PRN (17:00)
[2016-09-24] MEDS ORDERED: FENTANYL STANDARD PCA 30 ML IV PRN (17:00)
[2016-09-24] MEDS ORDERED: OXYCODONE/APAP 5/325 TABLET. PO PRN ×2 (17:00)
[2016-09-24] MEDS ORDERED: ONDANSETRON PF 4 MG/2 ML VIAL. IV PRN (17:15)
--- NOTE | 2016-09-24 17:21 | PDOC2 ---
CONSULT Date of Consult Date of Consult DATE: 09/24/16 TIME: 17:11 Reason for Consult Reason for Consult: Pericardial effusion status post ascending aorta replacement Referring Physician Referring Physician: ER Identification/Chief Complaint Chief Complaint Shortness of breath and incisional pain Source Source: Chart review, Patient History of Present Illness Reason for Visit: Mr Berrios is a 60-year-old male, well known to me, who on September 10, 2016 underwent replacement of an ascending aortic aneurysm. Overall he made an uneventful recovery apart from some episodes of paroxysmal atrial fibrillation which she had preoperatively. He presents to the emergency room today with shortness of breath on minimal exertion. He also complains of coughing which exacerbates his incisional pain. We performed a transthoracic echo which shows a large apical posterior pericardial effusion. This was confirmed on a noncontrast CT of the chest. The lung parenchyma appears to be normal. He is currently normotensive and in sinus rhythm. His appetite is also reduced. His creatinine is mildly elevated at 1.8 from a baseline of 1.6. He also has a leukocytosis of 18,000 and a thrombocytosis. Past Medical History Cardiovascular: AFIB, HTN Pulmonary: No pertinent hx GI: No pertinent hx Heme/Onc: Cancer Hepatobiliary: Other Psych: No pertinent hx Musculoskeletal: No pain Rheumatologic: No pertinent hx Infectious disease: No pertinent hx Renal/: Chronic renal failure Endocrine: No pertinent hx Past Surgical History Past Surgical History: Cholecystectomy, Hernia Repair, Other Family History Family History: Coronary Artery Disease Social History ALCOHOL: none Drugs: None Current Problem List Problem List Problems Medical Problems: (1) Pericardial effusion Status: Acute Current Medications Current Medications Current Medications Fentanyl Citrate (Fentanyl 2ml Vial) 50 mcg PRN Q15MIN PRN IV PAIN GREATER THAN 3/10 Last administered on 09/24/16 14:40; Start 09/24/16 at 12:45; Stop at 12:44 Ondansetron HCl 4 mg 4 mg 1X ONCE IV Last administered on 09/24/16 12:57; Start 09/24/16 at 12:45; Stop 09/24/16 at 12:46; Status DC Sodium Chloride (Iv Sodium Chloride 0.9% 1000ml Bag) 1,000 ml @ 1,000 mls/hr 1X ONCE IV Last administered on 09/24/16 13:12; Start 09/24/16 at 13:15; Stop 09/24/16 at 14:14; Status DC Sulfur Hexafluoride Microspheres (Lumason) 25 mg STK-MED ONCE IVP ; Start at 15:29; Stop 09/24/16 at 15:30; Status DC Sulfur Hexafluoride Microspheres (Lumason) 25 mg 1X ONCE IVP Last administered on 09/24/16t 16:03; Start 09/24/16 at 16:15; Stop 09/24/16 at 16:16 ; Status DC Ondansetron HCl 4 mg 4 mg PRN Q8HRS PRN IV NAUSEA/VOMITING; Start 09/24/16 at 17:00; Stop 09/25/16 at 16:59 Fentanyl Citrate (Fentanyl 600 Mcg/30 ml PHONE MANAGER) 30 ml @ 0 mls/hr CONT PRN PRN IV PROTOCOL; Start 09/24/16 at 17:00 Naloxone HCl (Narcan) 0.4 mg PRN Q2MIN PRN IV SEE INSTRUCTIONS; Start 09/24/16 at 17:00 Amiodarone HCl (Cordarone) 200 mg BID PO ; Start 09/24/16 at 21:00 Metoprolol Tartrate (Lopressor) 25 mg BID PO ; Start 09/24/16 at 21:00 Lisinopril (Prinivil) 5 mg DAILY PO ; Start 09/24/16 at 17:30 Allopurinol (Zyloprim) 300 mg DAILY PO ; Start 09/24/16 at 17:30 Oxycodone/ Acetaminophen (Percocet 5/325) 1 tab PRN Q4HRS PRN PO PAIN ; Start 09/24/16 at 17:00 Oxycodone/ Acetaminophen (Percocet 5/325) 2 tab PRN Q4HRS PRN PO PAIN ; Start 09/24/16 at 17:00 Lidocaine (Lidoderm) 2 patch DAILY TD ; Start 09/24/16 at 17:15; Status UNV Active Scripts Active Aspirin Ec (Aspirin) 325 Mg Tablet.dr 1 Tab PO DAILY Klor-Con M20 (Potassium Chloride) 20 Meq Tab.er.prt 1 Tab PO DAILY Hydrocodone-Apap 5-325 (Hydrocodone Bit/Acetaminophen) 1 Each Tablet 1 Tab PO PRN Q6HRS PRN sig: one or two tabs every 6 hours as needed for pain Mag-Oxide (Magnesium Oxide) 400 Mg Tablet 400 Mg PO BID Furosemide 40 Mg Tablet 40 Mg PO DAILY Amiodarone Hcl 200 Mg Tablet 400 Mg PO BID Reported Metoprolol Tartrate 50 Mg Tablet 1 Tab PO BID Allergies Allergies: Coded Allergies: No Known Drug Allergies (Unverified , 09/10/16) ROS General: YES: Fatigue, No: Appetite, Chills, Malaise, Night Sweats PSYCHOLOGICAL ROS: No: Anxiety, Behavioral Disorder, Concentration difficultie , Decreased libido, Depression, Disorientation, Hallucinations, Hostility, Irritablity, Memory difficulties, Mood Swings, Obsessive thoughts, Physical abuse, Sexual abuse, Sleep disturbances, Suicidal ideation Eyes: No Blurry vision, No Decreased vision, No Double vision, No Dry eyes, No Excessive tearing, No Eye Pain, No Itchy Eyes, No Loss of vision, No Photophobia , No Scotomata, No Uses contacts, No Uses glasses HEENT: No: Epistaxis, Heacaches, Hearing change, Nasal congestion, Nasal discharge, Oral lesions, Sinus pain, Sneezing, Snoring, Sore Throat, Tinnitus, Vertigo, Visual Changes, Vocal changes ALLERGY AND IMMUNOLOGY: No: Hives, Insect Bite Sensitivity, Itchy/Watery Eyes, Nasal Congestion, Post Nasal Drip, Seasonal Allergies Hematological and Lymphatic: No: Bleeding Problems, Blood Clots, Blood Transfusions, Brusing, Night Sweats, Pallor, Swollen Lymph Nodes ENDOCRINE: No: Breast Changes, Galactorrhea, Hair Pattern Changes, Hot Flashes , Malaise/lethargy, Mood Swings, Palpitations, Polydipsia/polyuria, Skin Changes , Temperature Intolerance, Unexpected Weight Changes Respiratory: YES: Cough, SOB with excertion, Shortness of breath, No: Hemoptysis, Orthopnea, Pleuritic Pain, Sputum Changes, Stridor, Tachypnea , Wheezing Cardiovascular: yes Edema, No Chest Pain, No Lt Headedness, No Orthopnea, No Palpitations, No Paroxysmal Noc. Dyspnea Gastrointestinal: No Abdominal Pain, No Constipation, No Diarrhea, No Hematochezia, No Melena, No Nausea, No Vomiting Genitourinary: No Discharge, No Dysuria, No Flank Pain, No Frequency, No Hematuria, No Incontinence, No Pain, No Retention, No Urgency Musculoskeletal: Yes Pain In: (sternotomy), No Gait Disturbance, No Joint Pain, No Joint Stiffness, No Joint Swelling, No Muscle Pain, No Muscular Weakness, No Swelling In: Neurological: No Behavorial Changes, No Bowel/Bladder ControlChng, No Confusion , No Dizziness, No Gait Disturbance, No Headaches, No Impaired Coord/balance, No Memory Loss, No Numbness/Tingling, No Seizures, No Speech Problems, No Tremors, No Visual Changes, No Weakness Skin: No Acne, No Dry Skin, No Eczema, No Hair Changes, No Lumps, No Mole Changes, No Mottling, No Nail Changes, No Pruritus, No Rash, No Skin Lesion Changes Physical Exam General: Alert, Oriented X3, No acute distress HEENT: Atraumatic, PERRLA Lungs: Clear to auscultation Heart: Regular rate, Normal S1, Normal S2 Abdomen: Soft, No tenderness Extremities: Other (mild edema) Skin: No significant lesion Neuro: Normal gait, Normal speech, Strength at 5/5 X4 ext, Normal tone, Sensation intact, Cranial nerves 3-12 NL Psych/Mental Status: Mental status NL MUSCULOSKELETAL: No deformity Vitals VITALS Vital Signs Date Time Temp Pulse Resp B/P Pulse Ox O2 Delivery O2 Flow Rate FiO2 09/24/16 13:10 92 20 82/63 100 Nasal Cannula 2 09/24/16 12:30 97.7 97.7 Labs Labs Laboratory Tests Test 09/24/16 12:26 09/24/16 13:00 White Blood Count 17.2x10^3/uL (4.0-11.0) Red Blood Count 3.37x10^6/uL (4.30-5.70) Hemoglobin 9.9g/dL (13.0-17.5) Hematocrit 31.0% (39.0-53.0) Mean Corpuscular Volume 92fL (79-100) Mean Corpuscular Hemoglobin 30pg (25-35) Mean Corpuscular Hemoglobin Concent 32g/dL (31-37) Red Cell Distribution Width 14.3% (11.5-14.5) Platelet Count 800x10^3/uL (140-400) Neutrophils (%) (Auto) 80% (31-73) Lymphocytes (%) (Auto) 13% (24-48) Monocytes (%) (Auto) 6% (0-9) Eosinophils (%) (Auto) 0% (0-3) Basophils (%) (Auto) 1% (0-3) Neutrophils # (Auto) 13.7x10^3uL (1.8-7.7) Lymphocytes # (Auto) 2.3x10^3/uL (1.0-4.8) Monocytes # (Auto) 1.0x10^3/uL (0.0-1.1) Eosinophils # (Auto) 0.0x10^3/uL (0.0-0.7) Basophils # (Auto) 0.2x10^3/uL (0.0-0.2) Segmented Neutrophils % 88% (35-66) Lymphocytes % 10% (24-48) Basophils % 1% (0-3) Metamyelocytes % 1% (0-0) Platelet Estimate Increased (ADEQUATE) Giant Platelets Few Polychromasia Slight Prothrombin Time 15.1SEC (11.7-14.0) Prothromb Time International Ratio 1.3 (0.8-1.1) Activated Partial Thromboplast Time 30SEC (24-38) Sodium Level 139mmol/L (136-145) Potassium Level 4.6mmol/L (3.5-5.1) Chloride Level 100mmol/L (98-107) Carbon Dioxide Level 25mmol/L (21-32) Anion Gap 14 (6-14) Blood Urea Nitrogen 29mg/dL (8-26) Creatinine 1.9mg/dL (0.7-1.3) Estimated GFR (Cockcroft-Gault) 36.5 BUN/Creatinine Ratio 15 (6-20) Glucose Level 131mg/dL (70-99) Lactic Acid Level 2.7mmol/L (0.4-2.0) Calcium Level 9.5mg/dL (8.5-10.1) Total Bilirubin 0.9mg/dL (0.2-1.0) Aspartate Amino Transf (AST/SGOT) 65U/L (15-37) Alanine Aminotransferase (ALT/SGPT) 82U/L (16-63) Alkaline Phosphatase 261U/L (46-116) Troponin I Quantitative 0.036ng/mL (0.000-0.055) RI-Zoq-U-Type Natriuretic Peptide 6065pg/mL (0-124) Total Protein 8.7g/dL (6.4-8.2) Albumin 3.3g/dL (3.4-5.0) Albumin/Globulin Ratio 0.6 (1.0-1.7) Influenza Type A Antigen Negative (NEGATIVE) Influenza Type B Antigen Negative (NEGATIVE) Laboratory Tests Test 09/24/16 12:26 09/24/16 13:00 White Blood Count 17.2x10^3/uL (4.0-11.0) Red Blood Count 3.37x10^6/uL (4.30-5.70) Hemoglobin 9.9g/dL (13.0-17.5) Hematocrit 31.0% (39.0-53.0) Mean Corpuscular Volume 92fL (79-100) Mean Corpuscular Hemoglobin 30pg (25-35) Mean Corpuscular Hemoglobin Concent 32g/dL (31-37) Red Cell Distribution Width 14.3% (11.5-14.5) Platelet Count 800x10^3/uL (140-400) Neutrophils (%) (Auto) 80% (31-73) Lymphocytes (%) (Auto) 13% (24-48) Monocytes (%) (Auto) 6% (0-9) Eosinophils (%) (Auto) 0% (0-3) Basophils (%) (Auto) 1% (0-3) Neutrophils # (Auto) 13.7x10^3uL (1.8-7.7) Lymphocytes # (Auto) 2.3x10^3/uL (1.0-4.8) Monocytes # (Auto) 1.0x10^3/uL (0.0-1.1) Eosinophils # (Auto) 0.0x10^3/uL (0.0-0.7) Basophils # (Auto) 0.2x10^3/uL (0.0-0.2) Segmented Neutrophils % 88% (35-66) Lymphocytes % 10% (24-48) Basophils % 1% (0-3) Metamyelocytes % 1% (0-0) Platelet Estimate Increased (ADEQUATE) Giant Platelets Few Polychromasia Slight Prothrombin Time 15.1SEC (11.7-14.0) Prothromb Time International Ratio 1.3 (0.8-1.1) Activated Partial Thromboplast Time 30SEC (24-38) Sodium Level 139mmol/L (136-145) Potassium Level 4.6mmol/L (3.5-5.1) Chloride Level 100mmol/L (98-107) Carbon Dioxide Level 25mmol/L (21-32) Anion Gap 14 (6-14) Blood Urea Nitrogen 29mg/dL (8-26) Creatinine 1.9mg/dL (0.7-1.3) Estimated GFR (Cockcroft-Gault) 36.5 BUN/Creatinine Ratio 15 (6-20) Glucose Level 131mg/dL (70-99) Lactic Acid Level 2.7mmol/L (0.4-2.0) Calcium Level 9.5mg/dL (8.5-10.1) Total Bilirubin 0.9mg/dL (0.2-1.0) Aspartate Amino Transf (AST/SGOT) 65U/L (15-37) Alanine Aminotransferase (ALT/SGPT) 82U/L (16-63) Alkaline Phosphatase 261U/L (46-116) Troponin I Quantitative 0.036ng/mL (0.000-0.055) YC-Djh-M-Type Natriuretic Peptide 6065pg/mL (0-124) Total Protein 8.7g/dL (6.4-8.2) Albumin 3.3g/dL (3.4-5.0) Albumin/Globulin Ratio 0.6 (1.0-1.7) Influenza Type A Antigen Negative (NEGATIVE) Influenza Type B Antigen Negative (NEGATIVE) Images Images CT chest Findings: 2 mm nodule in the left upper lobe is stable. No new nodule is identified. Linear atelectasis in the lung bases is noted. Minimal pleural effusions are noted. There is atheromatous disease in the thoracic aorta. Surgery has been performed on the ascending aorta since prior examination. At the level of the sinuses, ascending aorta measures 4.8 cm. At the sinotubular junction at the beginning of the surgical device, aorta now measures 3.0 cm in diameter. Just distal to the device descending aorta measures 3.9 cm. There is a pericardial effusion, large. There are postsurgical changes in the gallbladder fossa and right renal bed. One of the pancreas lesions described on prior report is apparent on the noncontrast study, unchanged. There are degenerative changes in the spine. Impression: 1. Linear atelectasis in the lung bases, increased from prior study. 2. New minimal pleural effusions and large pericardial effusion. 3. Postsurgical changes noted of ascending aortic aneurysm repair. Assessment/Plan Assessment/Plan 60-year-old male, 2 weeks status post replacement of an ascending aortic aneurysm, who presents with increased shortness of breath on minimal exertion. Transthoracic echo shows a relatively large posterior apical pericardial effusion. There is no evidence of tamponade although the atria were difficult to assess owing to the patient's body habitus. His symptoms are almost certainly from the pericardial effusion, as is his leukocytosis and thrombocytosis. I have asked Dr. Perez, to proceed with a percutaneous aspiration and placement of a pericardial drain under fluoroscopy. This will be performed tomorrow morning in the environmental laboratory technician. We will also place lidocaine patches on both sides of the sternotomy, for better pain control, in addition to narcotics. Hopefully after pericardiocentesis, his BP may allow us to diuresis and more aggressively. Admit to cardiac stepdown. FRANKY AMEZCUA MD Sep 24, 2016 17:21
[2016-09-24] MEDS: LISINOPRIL 5 MG TABLET. PO SCH (17:30)
[2016-09-24] MEDS ORDERED: ALLOPURINOL 300 MG TABLET. PO SCH (17:30)
[2016-09-24 17:33] VITALS: BP 126/89
--- NOTE | 2016-09-24 18:03 | CARD ---
APPROVED REPORT EXAM: Two-dimensional and M-mode echocardiogram with Doppler and color Doppler. Other Information Quality : PoorHR: 90bpm Rhythm : NSR INDICATION Chest Pain Post - op Echo Enhancing Agent Agent/Amount Used: Lumason 3mL RISK FACTORS Obesity Aortic Valve AoV Peak Herb.100.5cm/Danitza Peak GR.4.0mmHg LEFT VENTRICLE Poorly visualized left ventricular chamber, unable to assess for dimensions or function.The LVEF otoniel mation is 50-55%. Transmitral Doppler flow pattern is Grade I-abnormal relaxation pattern. RIGHT VENTRICLE Poorly visualized right ventricular chamber, unable to assess for dimensions or function. ATRIA Poorly visualized left atrial chamber, unable to assess for dimensions or function. Poorly visualized right atrial chamber, unable to assess for dimensions or function. Unable to assess the interatrial septum. AORTIC VALVE The aortic valve is not well visualized. There is no significant aortic valvular stenosis. MITRAL VALVE The mitral valve is not well visualized. There is no mitral valve stenosis. TRICUSPID VALVE The tricuspid valve is not well visualized. Unable to assess. PULMONIC VALVE The pulmonary valve is not well visualized. Unable to assess. GREAT VESSELS The greater vessels are not well visualized. Unable to assess. PERICARDIAL EFFUSION There is a large, complex circumferential pericardial effusion. Critical Notification Critical Value: Yes <Conclusion> Poorly visualized left ventricular chamber, unable to assess for dimensions or function.The LVEF otoniel mation is 50-55%. There is a large, complex circumferential pericardial effusion. No clear echocardiographic evidence o f tamponade.
[2016-09-24] MEDS: LIDOCAINE (700MG/PATCH) PATCH. TD SCH (18:23)
[2016-09-24 19:40] VITALS: BP 117/80
[2016-09-24] MEDS: MORPHINE SULFATE 30 ML IV PRN (19:47)
--- NOTE | 2016-09-24 21:45 | HP ---
ADMIT DATE: 09/24/2016 CHIEF COMPLAINT: Chest pain, pericardial effusion - status post ascending aorta replacement 2 weeks ago. HISTORY OF PRESENT ILLNESS: The patient is a 60-year-old gentleman, who had undergone replacement of an ascending aortic aneurysm on 09/10/2016. He actually recovered without major problems. However, he presented today to the Emergency Room with significant shortness of breath with minimal exertion, mainly due to chest pain with deep breathing. He complains of coughing, which exacerbates the pain at his surgical incision. A transthoracic echo with Doppler flow performed in the Emergency Room by his surgeon, Dr. Roberson showing a large apical posterior pericardial effusion. CT of the chest essentially confirms this. He was therefore admitted to the CVICU for further management and care. PAST MEDICAL HISTORY: Ascending aortic aneurysm repair on 09/10/2016 as above, paroxysmal AFib, hypertension, renal cell carcinoma status post nephrectomy in 2006, question with pancreatic metastatic recurrence recently - biopsy inconclusive, chronic renal insufficiency with a single kidney - creatinine at 1.6-1.8, and gout. PAST SURGICAL HISTORY: He is status post cholecystectomy as well as hernia repair. FAMILY HISTORY: Positive for CAD. SOCIAL HISTORY: Quit smoking about 10 years ago. Denies alcohol or drugs. ALLERGIES: No known drug allergies. MEDICATIONS: All medications reconciled with MAR. REVIEW OF SYSTEMS: The patient has significant pain with breathing, holding a pillow to his chest. No fevers. No cough at this time. Denies any abdominal symptoms. Rest of organ system review is negative. PHYSICAL EXAMINATION: VITAL SIGNS: From today show a blood pressure of 126/89, heart rate of 92, and respiratory rate 20. He is afebrile. GENERAL: This is a morbidly obese 60-year-old gentleman, alert and oriented, in moderate distress secondary to pain in his chest. HEENT: Shows no scleral icterus. NECK: Supple. LUNGS: Clear anteriorly. CHEST: Reveals a well-healing sternotomy incision. HEART: Has a regular rate and rhythm. ABDOMEN: Massively obese. Positive bowel sounds. Organs could not be palpated. EXTREMITIES: Show no edema. SKIN: Warm, soft, and dry without any rash. LABORATORY DATA: CBC with a WBC of 17.2, hemoglobin 9.9, and platelets of 800. Differential with 88% segmented neutrophils and 1 metamyelocyte. Chemistries with a BUN and creatinine of 29 and 1.9 - slightly elevated over a prior measurement of 1.6. Electrolytes within normal limits. LFTs slightly elevated with an AST and ALT of 65 and 82, alkaline phosphatase at 261, proBNP at 6,035 and troponin at 0.036. Of note, prior LFTs have been within normal limits. Influenza serology today was negative. IMAGING STUDIES: CT of the chest with linear atelectasis at lung bases, increased from prior studies. Minimal pleural effusions and large pericardial effusion, postsurgical changes in the ascending aorta with aneurysm. ASSESSMENT AND PLAN: The patient is a 60-year-old gentleman with a large effusion, which by ultrasound appears to be bloody, fibrinous. Discussed with Dr. English. Plan is for a needle aspiration of the effusion as a pericardial window placement is complicated due to recent surgery. We will monitor it in the Cardiovascular Intensive Care Unit for now. Pain is very poorly controlled. I suspect that this is affecting breathing as suggested by worsening atelectasis in lung bases. We will start him on morphine continuous drip as well as PRINCIPAL LAW CLERK to get symptoms under control. He does have some amount of renal insufficiency, which appears slightly worse. In conjunction with elevated LFTs, a very concerning, but probably secondary to heart failure. We will monitor for the time being. We will not start significant IV fluids at this point. The patient is on allopurinol for gout; however, his dose is too high given single kidney and renal insufficiency. We will decrease to 100 mg daily. ISIDRO SOLIS MD DR: MARIKA/nts JOB#: [id number] / [id number] [facility]
[2016-09-24] MEDS: AMIODARONE HCL 200 MG TABLET PO SCH (22:36)
[2016-09-24] MEDS: METOPROLOL TART IMMED RELEASE 25 MG TABLET PO SCH (22:37)
[2016-09-24 23:50] VITALS: BP 110/86
[2016-09-25] VITALS (14 sets, daily range): BP systolic 95–142; BP diastolic 61–98
[2016-09-25] MEDS: ONDANSETRON PF 4 MG/2 ML VIAL. IV PRN ×2 (00:40→07:15)
[2016-09-25] MEDS: MORPHINE SULFATE 30 ML IV PRN (03:05)
[2016-09-25 05:33] LABS: BASO # 0.2 x10^3/uL (0.0-0.2); BASO % 1 % (0-3); EOS % 1 % (0-3); HEMATOCRIT 29.7 % (39.0-53.0); HEMOGLOBIN 9.6 g/dL (13.0-17.5); LYMPH % 13 % (24-48); MEAN CORPUSCULAR HEMOGLOBIN 30 pg (25-35); MEAN CORPUSCULAR HGB CONC 32 g/dL (31-37); MEAN CORPUSCULAR VOLUME 94 fL (79-100); MONO % 9 % (0-9); NEUT % 76 % (31-73); PLATELET COUNT 782 x10^3/uL (140-400); RED BLOOD COUNT 3.16 x10^6/uL (4.30-5.70); RED CELL DISTRIBUTION WIDTH 14.5 % (11.5-14.5); WHITE BLOOD COUNT 15.4 x10^3/uL (4.0-11.0)
[2016-09-25 05:47] LABS: CALCIUM 9.2 mg/dL (8.5-10.1); CREATININE 2.1 mg/dL (0.7-1.3); GFR 32.5; POTASSIUM 4.6 mmol/L (3.5-5.1)
[2016-09-25] MEDS ORDERED: LIDOCAINE 2% 20 ML VIAL. ONE ×2 (06:39→07:42)
[2016-09-25] MEDS ORDERED: VANCOMYCIN 1GM IVPB FOR OMNI 250 ML IV ONE (07:45)
[2016-09-25] MEDS ORDERED: IOHEXOL 300 MG/ML 100ML VIAL. ONE (07:58)
[2016-09-25] MEDS ORDERED: PHENYLEPHRINE in 0.9% NACL PF 1 MG/10 ML DISP.SYRIN. IV ONE ×2 (08:14→08:37)
[2016-09-25] MEDS ORDERED: ONDANSETRON PF 4 MG/2 ML VIAL. ONE ×2 (08:21→08:44)
[2016-09-25] MEDS ORDERED: ROCURONIUM 100 MG/10 ML VIAL. ONE (08:36)
[2016-09-25] MEDS ORDERED: FENTANYL PF 250 MCG/5 ML VIAL. ONE (08:36)
[2016-09-25] MEDS ORDERED: DESFLURANE > 120 MINUTES IH ONE (08:36)
[2016-09-25] MEDS ORDERED: LIDOCAINE 2% 100 MG/5 ML DISP.SYRIN. ONE ×2 (08:37→10:24)
[2016-09-25] MEDS ORDERED: EPHEDRINE PF IN SALINE 50 MG/5 ML DISP.SYRIN. IV ONE (08:37)
[2016-09-25] MEDS ORDERED: FENTANYL PF 100 MCG/2 ML VIAL. IV PRN (08:45)
[2016-09-25] MEDS ORDERED: LIDOCAINE 1% 1 ML SYRINGE. ID PRN (08:45)
[2016-09-25] MEDS ORDERED: PROCHLORPERAZINE 10 MG/2 ML VIAL. IV PRN (08:45)
[2016-09-25] MEDS ORDERED: MORPHINE SULFATE 2 MG/ML DISP.SYRIN. IV PRN (08:45)
[2016-09-25] MEDS ORDERED: ONDANSETRON PF 4 MG/2 ML VIAL. IV PRN ×2 (08:45→11:30)
[2016-09-25] MEDS ORDERED: HYDROMORPHONE 2 MG/ML VIAL. IV PRN (08:45)
[2016-09-25] MEDS: AMIODARONE HCL 200 MG TABLET PO SCH ×2 (09:00→22:44)
[2016-09-25] MEDS ORDERED: VANCOMYCIN 1 GM in IV NORMAL SALINE 250ML 250 ML IV ONE (09:00)
[2016-09-25] MEDS ORDERED: IV RINGERS,LACTATED 1000ML 1,000 ML IV SCH (09:00)
[2016-09-25] MEDS ORDERED: ONDANSETRON PF 4 MG/2 ML VIAL. IV ONE (09:30)
[2016-09-25] MEDS ORDERED: LIDOCAINE 2% 20 ML VIAL. IJ ONE (09:30)
[2016-09-25] MEDS ORDERED: PHENYLEPHRINE 10 MG/ML VIAL. ONE ×2 (09:56)
[2016-09-25] MEDS ORDERED: GLYCOPYRROLATE 1 MG/5 ML VIAL. ONE (10:06)
[2016-09-25] MEDS ORDERED: NEOSTIGMINE METHYLSULFATE 5 MG/5 ML SYRINGE. ONE (10:07)
[2016-09-25] MEDS ORDERED: ISOFLURANE > 120 MINUTES. IH ONE (10:24)
[2016-09-25] MEDS ORDERED: SUGAMMADEX SODIUM 200 MG/2 ML VIAL. IVP ONE (10:53)
--- NOTE | 2016-09-25 11:15 | ACF ---
Admission Forms Criteria CARDIOLOGY GRG Clinical Indications for Admission to Inpatient Care ( Place 'X' for any and all applicable criteria): Hospital admission is needed for appropriate care of the patient because of ANY ONE of the following (1): [ ] I. Hemodynamic instability as indicated by ALL of the following (1)(2)(3) (4)(5) [ ]a) Vital signs or other findings not as expected for chronic patient condition or baseline [ ]b) Instability indicated by ANY ONE of the following: [ ]i) Hypotension [ ]ii) Symptomatic Tachycardia unresponsive to treatment ( e.g., analgesia, fluids, sedation as indicated) [ ]iii) Inadequate perfusion indicated by ANY ONE of the following: [ ] 1) Lactic acidosis (> 2 mmol/L) [ ] 2) New abnormal capillary refill (> 3 seconds) [ ] 3) Reduced urine output [ ] 4) New altered mental status [ ]iv) Orthostatic vital sign changes unresponsive to treatment (e.g., fluids) [ ]v) IV inotropic or vasopressor medication required to maintain adequate blood pressure or perfusion [ ] II. Severe heart failure as indicated by ANY ONE of the following(17)(18) [ ]a) Respiratory distress [ ]b) Hypotension [ ]c) Anasarca (refractory to outpatient therapy) [ ]d) Cardiac arrhythmias of immediate concern [ ]e) Myocardial ischemia [ ] III. Cardiac arrhythmias or findings of immediate concern indicated by ANY ONE of the following (19)(20): [ ] a) Heart rhythms that are inherently dangerous or unstable indicated by ANY ONE of the following (21)(22)(23): [ ] i) Resuscitated ventricular fibrillation or cardiac arrest [ ] ii) Ventricular escape rhythm [ ] iii) Sustained ventricular tachycardia (30 seconds or more of ventricular rhythm at greater than 100 beats per minute) [ ] iv) Nonsustained ventricular tachycardia and ANY ONE of the following: [ ] 1) Suspected cardiac ischemia as cause or consequence of ventricular tachycardia [ ] 2) In setting of acute myocarditis [ ] b) Unstable cardiac conduction defects indicated by ANY ONE of the following(23)(24)(25) [ ] i) Type II second-degree atrioventricular block [ ]ii) Third-degree atrioventricular block [ ]iii) New-onset left bundle branch block with suspected myocardial ischemia [ ]c) Any heart rhythm and ANY ONE of the following (21)(22)(26)(27) (28) [ ] i) Continuous long-term ECG monitoring needed (e.g., initiation of drug requiring monitoring for more than 24 hours) [ ] ii) Patient has automatic implanted cardioverter defibrillator that is repeatedly firing, malfunctioning, or in need of immediate adjustment of settings beyond the scope of ambulatory or observation care [ ]d) Heart rhythms of concern due to ANY ONE of the following: [ ] i) Hypotension [ ] ii) Respiratory distress [ ] iii) Association with other significant symptoms (e.g., bradycardia with syncope or ongoing dizziness, supraventricular tachycardia with chest pain (14)(15)(17) [ ] IV. Monitoring for cardiac contusion beyond the scope of observation care needed [A](30)(31)(32) [ ] V. Surgical or device complication (e.g., valve replacement complication , pacemaker dysfunction) (35)(41)(44)(45)(46) [ ] . Inpatient palliative care needed. [B](49) Also use Inpatient Palliative Care Criteria [ ] VII. Nonbacterial thrombotic (marantic) endocarditis (36)(43)(47)(48) [ ] VIII. Cardiology condition, symptom, or finding for which emergency and observation care has failed or are not considered appropriate. [ ] IX. Acute valvular disease requiring inpatient as indicated by ANY ONE of the following (41) [ ]a) Acute valvular regurgitation (42) [ ]b) Noninfectious valvulitis (43) [ ]c) Obstructive valve thrombosis [ ]d) Paravalvular leak [ ]e) Other significant valvular disorder remaining after emergency or observation level of care (as appropriate) [X]X. Pericardial disease requiring inpatient treatment as indicated by ANY ONE of the following (33)(34)(35)(36)(37) [ ]a) Suspected tamponade (38)(39)(40) [ ]b) Hemopericardium [X]c) Other significant pericardial disorder remaining after emergency or observation level of care (as appropriate) PERICARDIAL EFFUSION [ ] XI. Cardiac ischemia beyond scope of emergency and observation care. [ ] XII. Hypertension requiring inpatient treatment as indicated by ANY ONE of the following (6)(7)(8) [ ]a) SBP greater than 220 mm Hg or DBP greater than 120 mmHg despite treatment [ ]b) SBP greater than 140 mm Hg or DBP greater than 100 mm Hg with evidence of acute end organ damage as indicated by ANY ONE of the following [ ] i) Encephalopathy [ ] ii) Acute renal failure as indicated by new onset of ANY ONE of the following (9)(10)(11)(12)(13) [ ]1) 3-fold rise in serum creatinine from baseline [ ]2) Serum creatinine greater than 4 mg/dL ( 354 micromoles/L) with acute rise greater than 0.5 mg/dL (44.2 micromoles/L) [ ]3) Reduction of more than 75% in estimated glomerular filtration rate from baseline [ ]4) Estimated glomerular filtration rate less than 35 mL/min/1.73m2 (0.59 mL/sec/1.73m2) in child up to 18 years of age [ ]5) Cessation of urine output indicated by ALL of the following [ ]A. Adequate volume status [ ]B. Inadequate urine output as indicated by ANY ONE of the following [ ]a. Urine output less than 0.3 mL/kg/hr for 24 hours [ ]b. Anuria (urine output less than 0.1 mL/kg/hr) for 12 hours [ ] iii) Aortic dissection [ ] iv) Myocardial Ischemia [ ] v) Left ventricular heart failure [ ]vi) Retinal Hemorrhage [ ]vii) Other significant finding [ ]c) Hypertension in child requiring inpatient treatment as indicated by ALL of the following(14)(15)(16) [ ] i) Outpatient treatment not effective, not available, or not appropriate [ ]ii) SBP or DBP greater than 95th percentile for age [ ]iii) Evidence of acute end organ damage as indicated by ANY ONE of the following [ ]1) Altered mental status [ ]2) Acute renal failure as indicated by new onset of ANY ONE of the following(9)(10)(11)(12)(13) [ ]A. 3-fold rise in serum creatinine from baseline [ ]B. Serum creatinine greater than 4 mg/dL (354 micromoles/L) with acute rise greater than 0.5 mg/dL (44.2 micromoles/L) [ ]C. Reduction of more than 75% in estimated glomerular filtration rate from baseline [ ]D. Estimated glomerular filtration rate less than 35 mL/min/1.73m2 (0.59 mL/sec/1.73m2) in child up to 18 years of age [ ]E. Cessation of urine output indicated by ALL of the following [ ]a. Adequate volume status [ ]b. Inadequate urine output as indicated by ANY ONE of the following [ ]i) Urine output less than 0.3 mL/kg/hr for 24 hours [ ]ii) Anuria ( urine output less than 0.1 mL/kg/hr) for 12 hours [ ]3) Severe headache [ ]4) Visual disturbance [ ]5) Retinal hemorrhage [ ]6) Other significant finding [ ]XIII. Complications of transplanted heart indicated by ANY ONE of the following(61): [ ]a) Acute graft rejection requiring inpatient management (eg, intravenous immunosuppression)(62)(63) [ ]b) Acute graft heart failure indicated by ANY ONE of the following(64): [ ]i) Hemodynamic instability [ ]ii) Cardiac arrhythmias of immediate concern [ ]iii) Pulmonary edema that is very severe (eg, mechanical ventilation needed, imminent or likely, need for 100% oxygen to keep oxygen saturation above 90%) [ ]iv) Pulmonary edema that is persistent as indicated by ALL of the following: [ ]1) New need for oxygen therapy to keep oxygen saturation above 90% (or increased FiO2 need from baseline) [ ]2) Has not improved sufficiently with emergency department or observation care IV diuretics or other heart failure treatments[E] [ ]v) Altered mental status that is severe or persistent [ ]vi) Increased creatinine (new on laboratory test) with reduction of more than 50% in estimated glomerular filtration rate from baseline [ ]vii) Progressively (ongoing) rising creatinine (known from past laboratory test) with reduction of more than 25% in estimated glomerular filtration rate from baseline [ ]viii) Acute renal failure [ ]ix) Acute peripheral ischemia (eg, examination shows pulseless, cool, mottled, or cyanotic extremity) [ ]x) Pulmonary artery catheter monitoring needed [ ]xi) Other sign or symptom of heart failure requiring inpatient treatment (ie, too severe or not responsive to outpatient and observation care treatment) [ ]c) Infection requiring inpatient management (eg, Hemodynamic instability, need for intravenous antimicrobial treatment)(66)(67)(68)(69)(70) [ ]d) Cardiac allograft vasculopathy requiring inpatient management ( eg evidence of cardiac ischemia)(71) [ ]e) Other complication of transplanted heart (eg, stroke, severe pulmonary hypertension, severe valvular dysfunction) requiring inpatient management(72) The [facility] content created by [facility] has been revised. The portions of the content which have been revised are identified through the use of italic text or in bold, and [facility] has neither reviewed nor approved the modified material. All other unmodified content is copyright [facility]. Please see references footnoted in the original [facility] edition 2016 Admission Criteria Met?: Yes BHARGAVI MUNIZ Sep 25, 2016 11:15
--- NOTE | 2016-09-25 11:26 | PDOC ---
BRIEF OPERATIVE NOTE Date: Sep 25, 2016 Pre-Op Diagnosis Pericardial effusion S/p ascending aortic aneurysm repair Morbid obesity Paroxysmal atrial fibrillation Post-Op Diagnosis Pericardial effusion S/p ascending aortic aneurysm repair Morbid obesity Paroxysmal atrial fibrillation Procedure Performed Left VATS pericardial window Surgeon Franky Roberson MD Equipment Operating Engineer BOLIVAR Vick RNFA Anesthesia Type: General Blood Loss 50 mls IV Fluid N/A Urine Output N/A Specimens Obtained Pericardium Findings 1200 mL's of old bloody fluid drained from the pericardial cavity Thickened and inflamed pericardium Intrapericardial adhesions Complications None Additional Remarks N/A FRANKY ROBERSON MD Sep 25, 2016 11:26
[2016-09-25] MEDS ORDERED: OXYCODONE/APAP 5/325 TABLET. PO PRN (11:30)
[2016-09-25] MEDS ORDERED: METOCLOPRAMIDE HCL 10 MG/2 ML VIAL. IV PRN (11:30)
[2016-09-25] MEDS ORDERED: ACETAMINOPHEN 325 MG TABLET. PO PRN (11:30)
[2016-09-25] MEDS ORDERED: 0.9 % SODIUM CHLORIDE 10 ML DISP.SYRIN. IV PRN (11:30)
[2016-09-25] MEDS: FENTANYL PF 100 MCG/2 ML VIAL. IV PRN ×3 (11:31→17:19)
--- NOTE | 2016-09-25 11:43 | PDOC4 ---
Operative Note Operative Note Date: Sep 25, 2016 Preoperative diagnosis Pericardial effusion S/p ascending aortic aneurysm repair Morbid obesity Paroxysmal atrial fibrillation Postoperative diagnosis Pericardial effusion S/p ascending aortic aneurysm repair Morbid obesity Paroxysmal atrial fibrillation Operation Left video-assisted thoracoscopic surgery with pericardial window Surgeon Franky Amezcua MD Assistants BOLIVAR Vick RNFA Anesthesia: General Blood loss: 50 mls IV fluids N/A Urine output N/A Specimens obtained Pericardium Findings 1200 mL's of old bloody fluid drained from the pericardial cavity Thickened and inflamed pericardium Intrapericardial adhesions Complications None Indication Mr Berrios is a 60-year-old male who underwent an ascending aortic aneurysm replacement on September 10, 2016. Overall he made an uneventful postoperative recovery and was discharged home on postoperative day 6. He did have some postoperative paroxysmal atrial fibrillation, although he does have a history of this prior to surgery. He presented to the emergency room yesterday with shortness of breath on minimal exertion, fatigue and feeling unwell. He also had significant anterior chest pain. His labs demonstrated a leukocytosis of 18, 000, thrombocytosis of 800,000 and a creatinine which was elevated 1.8 from 1.6 which is his baseline. Transthoracic echo demonstrated a large pericardial effusion which was predominantly localized posteriolaterally. Dr Perez attempted a pericardiocentesis in the [facility] early this morning, but was unable to gain access into the pericardial cavity. During the procedure the right ventricle was catheterized with a 4 Serbian tube, confirmed by the pressure waveform. The tube was removed and we then decided to go to the operating room urgently to drain the pericardial effusion. Throughout his transfer from the [facility] to the operating room he remained hemodynamically stable and there was no increase in size of the pericardial effusion on intermittent transthoracic echo. Operation The patient was transferred from the lab analyst in the operating room. Antibiotic prophylaxis was given. Anesthesia was induced by the anesthesiologist and the airway was secured with a double lumen ET tube. The patient was then placed in the right lateral decubitus position with the left side up. The left chest was prepped and draped in the usual sterile surgical fashion. A timeout was then performed. Access into the left pleural cavity was obtained by inserting a thoracoscopic port into the seventh intercostal space in the mid axillary line. The pleural cavity was inspected and apart from an extremely distended pericardial cavity, there were no other abnormalities. Two additional ports were placed in the fifth and seventh intercostal spaces at the posterior axillary line. The phrenic nerve was identified and I went posterior to the nerve and anterior to the hilum and opened the pericardium. 1200 mL's of old bloody fluid was drained. I then opened the anterolateral pericardium and excised a large piece of it, thus creating a pericardial window. Some more fluid was drained from the anterolateral pericardium. There was several intrapericardial adhesions which were carefully divided and clots were removed. A piece of pericardium was sent to pathology. The pericardium appeared very thickened and fibrotic consistent with an active pericarditis. A transesophageal echo confirmed that all of the pericardial fluid was successfully drained. We had immediate improvement in his blood pressure. I then suctioned the pleural cavity. Hemostasis was confirmed. A 28 Serbian chest tube was inserted through the thoracoscopic port and placed medially towards the pleural apex. The chest tube was secured with a #2 silk stitch. I then asked anesthesia to inflate the right lung which fully expanded. The thoracoscopic port sites were closed with 2-0 Vicryl for the deep layers followed by 4-0 Monocryl for the epidermis. The port site incisions were covered with Dermabond. At the end of the procedure the instrument, sponge and needle counts were correct. Anesthesia was reversed, the patient was extubated and transferred to recovery in stable condition having tolerated the procedure well. FRANKY AMEZCUA MD Sep 25, 2016 11:42
--- NOTE | 2016-09-25 12:29 | PDOC ---
PROGRESS NOTES Chief Complaint Chief Complaint Pericardial effusion ASSESSMENT AND PLAN: 1. Pericardial effusion: s/p VATS pericardial window placement this AM by Dr Roberson, with 1.2L inital fluid out. d/w Dr Perez: significant inflamamtion, high risk for fibrosis. start colchicine (monitor creat!) . CT in place, draining serosanguineous fluid 2. Pain control: dilaudid gtt stopped. has oxy x4PRN, dilaudid IV as 2nd choice 3. CKD: creat sl worse, prob vasomotor. gentle IV hydration. drinking adequately. monitor labs 4. Transaminitis: suspect related to cardiac issues. monitor 5. Gout: allopurinol listed, but pt only taking PRN. should be no more than 100mg with renal issues Vitals Vitals Vital Signs Date Time Temp Pulse Resp B/P Pulse Ox O2 Delivery O2 Flow Rate FiO2 09/25/16 12:02 Nasal Cannula 3 09/25/16 11:46 77 16 133/105 96 09/25/16 11:16 98.4 98.4 Physical Exam General: Alert, Oriented X3, No acute distress Heart: Regular rate, Normal S1, Normal S2 Lungs: Clear Abdomen: Soft, No tenderness Extremities: No clubbing, No cyanosis, No edema Skin: No significant lesion Labs LABS Laboratory Tests Test 09/24/16 12:26 09/24/16 13:00 09/25/16 05:00 White Blood Count 17.2x10^3/uL (4.0-11.0) 15.4x10^3/uL (4.0-11.0) Red Blood Count 3.37x10^6/uL (4.30-5.70) 3.16x10^6/uL (4.30-5.70) Hemoglobin 9.9g/dL (13.0-17.5) 9.6g/dL (13.0-17.5) Hematocrit 31.0% (39.0-53.0) 29.7% (39.0-53.0) Mean Corpuscular Volume 92fL (79-100) 94fL (79-100) Mean Corpuscular Hemoglobin 30pg (25-35) 30pg (25-35) Mean Corpuscular Hemoglobin Concent 32g/dL (31-37) 32g/dL (31-37) Red Cell Distribution Width 14.3% (11.5-14.5) 14.5% (11.5-14.5) Platelet Count 800x10^3/uL (140-400) 782x10^3/uL (140-400) Neutrophils (%) (Auto) 80% (31-73) 76% (31-73) Lymphocytes (%) (Auto) 13% (24-48) 13% (24-48) Monocytes (%) (Auto) 6% (0-9) 9% (0-9) Eosinophils (%) (Auto) 0% (0-3) 1% (0-3) Basophils (%) (Auto) 1% (0-3) 1% (0-3) Neutrophils # (Auto) 13.7x10^3uL (1.8-7.7) 11.8x10^3uL (1.8-7.7) Lymphocytes # (Auto) 2.3x10^3/uL (1.0-4.8) 2.0x10^3/uL (1.0-4.8) Monocytes # (Auto) 1.0x10^3/uL (0.0-1.1) 1.4x10^3/uL (0.0-1.1) Eosinophils # (Auto) 0.0x10^3/uL (0.0-0.7) 0.1x10^3/uL (0.0-0.7) Basophils # (Auto) 0.2x10^3/uL (0.0-0.2) 0.2x10^3/uL (0.0-0.2) Segmented Neutrophils % 88% (35-66) Lymphocytes % 10% (24-48) Basophils % 1% (0-3) Metamyelocytes % 1% (0-0) Platelet Estimate Increased (ADEQUATE) Giant Platelets Few Polychromasia Slight Prothrombin Time 15.1SEC (11.7-14.0) Prothromb Time International Ratio 1.3 (0.8-1.1) Activated Partial Thromboplast Time 30SEC (24-38) Sodium Level 139mmol/L (136-145) 137mmol/L (136-145) Potassium Level 4.6mmol/L (3.5-5.1) 4.6mmol/L (3.5-5.1) Chloride Level 100mmol/L (98-107) 101mmol/L (98-107) Carbon Dioxide Level 25mmol/L (21-32) 23mmol/L (21-32) Anion Gap 14 (6-14) 13 (6-14) Blood Urea Nitrogen 29mg/dL (8-26) 31mg/dL (8-26) Creatinine 1.9mg/dL (0.7-1.3) 2.1mg/dL (0.7-1.3) Estimated GFR (Cockcroft-Gault) 36.5 32.5 BUN/Creatinine Ratio 15 (6-20) Glucose Level 131mg/dL (70-99) 128mg/dL (70-99) Lactic Acid Level 2.7mmol/L (0.4-2.0) Calcium Level 9.5mg/dL (8.5-10.1) 9.2mg/dL (8.5-10.1) Total Bilirubin 0.9mg/dL (0.2-1.0) Aspartate Amino Transf (AST/SGOT) 65U/L (15-37) Alanine Aminotransferase (ALT/SGPT) 82U/L (16-63) Alkaline Phosphatase 261U/L (46-116) Troponin I Quantitative 0.036ng/mL (0.000-0.055) FD-Cyt-H-Type Natriuretic Peptide 6065pg/mL (0-124) Total Protein 8.7g/dL (6.4-8.2) Albumin 3.3g/dL (3.4-5.0) Albumin/Globulin Ratio 0.6 (1.0-1.7) Influenza Type A Antigen Negative (NEGATIVE) Influenza Type B Antigen Negative (NEGATIVE) Magnesium Level 2.7mg/dL (1.8-2.4) Review of Systems Review of Systems pain at about 7, mainly at CT site ISIDRO SOLIS MD Sep 25, 2016 12:29
--- NOTE | 2016-09-25 12:55 | RAD ---
Indication: Post left VATS procedure for pericardial window. Technique: Semiupright portable chest radiograph was obtained and compared to a study from one day earlier. Findings: Left chest tube or mediastinal drain is now noted. The cardiac silhouette is enlarged, although slightly improved from prior study. Enlargement is predominantly secondary to effusion based on prior CT. There is no airspace disease. Median sternotomy wires are noted. Subcutaneous emphysema is noted on the left. Leads overlie the patient. Impression: Slight decrease in size of the cardiac silhouette likely secondary to decreased pericardial effusion. Left chest or mediastinal drain noted.
[2016-09-25] MEDS: LISINOPRIL 5 MG TABLET. PO SCH (14:29)
[2016-09-25] MEDS: METOPROLOL TART IMMED RELEASE 25 MG TABLET PO SCH ×2 (14:30→22:44)
[2016-09-25] MEDS: LIDOCAINE (700MG/PATCH) PATCH. TD SCH (14:31)
[2016-09-25] MEDS: CEFAZOLIN SODIUM 3 GM in IV NORMAL SALINE 100ML 100 ML IV SCH ×3 (14:55→23:43)
--- NOTE | 2016-09-25 18:44 | CARD ---
APPROVED REPORT EXAM: LIMITED Two-dimensional echocardiogram. Other Information Quality : Technically Limited Rhythm : NSR INDICATION Pericardial Effusion Ultasound guided access for pericardial tap GREAT VESSELS Not assessed PERICARDIAL EFFUSION There is a moderate-large circumferential pericardial effusion with fibrounous strands present before pericardial window. After pericardial window there is a small posterior lateral effusion noted. Critical Notification Critical Value: No <Conclusion> There is a moderate-large circumferential pericardial effusion with fibrounous strands present before pericardial window. After pericardial window there is a small posterior lateral effusion noted.
--- NOTE | 2016-09-25 18:48 | CARD ---
APPROVED REPORT Procedure(s) performed: pericardiocentesis HISTORY The patient is a 60 year-old male with a history of : aortic aneurysm s/p repair. . INDICATION The indication(s) include : dyspnea. PROCEDURE NARRATIVE Patient is a 60-year-old male who presented to the hospital in the setting of persistent exertional p ain and dyspnea as well as worsening pain at rest and fatigue. He was noted to have a large pericardi al effusion albeit fibrinous in nature on echocardiography. After discussion with CT surgical service he was decided to attempt a percutaneous approached for fluid removal as he was felt to be high risk for surgical intervention given his multiple comorbidities including obesity and recent sternotomy. After discussion of the risks and benefits of the procedure he was brought to the catheterization lab oratory and laid in a supine position. Using echocardiographic guidance and 2% lidocaine local anesth esia a subcutaneous tract was anesthetized in the subxiphoid and apical regions. Despite multiple att empts initially with a pericardial needle the pericardial sac could not be entered due to most of the fluid being layered posteriorly and fibrinous nature. Subsequently, the needle from a subxiphoid approach appear to enter the pericardial cavity but upon p ressure measurement it was revealed to be in the right ventricle and therefore the wire and dilator w ere withdrawn and the patient was monitored for one hour in the catheter lab with repeat echocardiogr aphy demonstrating no worsening of the effusion and normal hemodynamics with stable blood pressures. In light of difficulty via percutaneous approach after discussion of the risks and benefits he was ul timately felt that he would benefit from a pericardial window and drainage via surgical approach. The refore the patient was then transferred to the operating room where a window was performed. Please se e operative notes for further details. Conclusion Unsuccessful percutaneous pericardiocentesis
[2016-09-25] MEDS: OXYCODONE/APAP 5/325 TABLET. PO PRN (19:53)
[2016-09-25] MEDS ORDERED: IV NORMAL SALINE 1000ML BAG 1,000 ML IV ONE (20:00)
[2016-09-25] MEDS: SENNOSIDES/DOCUSATE 8.6/50MG TABLET. PO SCH (22:01)
[2016-09-25] MEDS: COLCHICINE 0.6 MG TABLET PO SCH (22:01)
[2016-09-25] MEDS: FAMOTIDINE 20 MG TABLET. PO SCH (22:01)
[2016-09-25] MEDS: HYDROMORPHONE 2 MG/ML VIAL. IV PRN (22:13)
[2016-09-26] MEDS: OXYCODONE/APAP 5/325 TABLET. PO PRN ×4 (00:03→22:49)
[2016-09-26 03:05] VITALS: BP 93/63
[2016-09-26 03:46] VITALS: BP 105/68
[2016-09-26 05:45] VITALS: BP 94/64
[2016-09-26] MEDS: HYDROMORPHONE 2 MG/ML VIAL. IV PRN ×2 (06:02→15:18)
[2016-09-26 08:02] LABS: BASO % 0 % (0-3); EOS % 0 % (0-3); HEMATOCRIT 25.4 % (39.0-53.0); HEMOGLOBIN 8.1 g/dL (13.0-17.5); LYMPH # 0.7 x10^3/uL (1.0-4.8); LYMPH % 5 % (24-48); MEAN CORPUSCULAR HEMOGLOBIN 29 pg (25-35); MEAN CORPUSCULAR HGB CONC 32 g/dL (31-37); MEAN CORPUSCULAR VOLUME 92 fL (79-100); MONO % 5 % (0-9); NEUT % 90 % (31-73); PLATELET COUNT 637 x10^3/uL (140-400); RED BLOOD COUNT 2.76 x10^6/uL (4.30-5.70); RED CELL DISTRIBUTION WIDTH 14.1 % (11.5-14.5); WHITE BLOOD COUNT 14.9 x10^3/uL (4.0-11.0)
[2016-09-26 08:12] LABS: CALCIUM 8.3 mg/dL (8.5-10.1); CREATININE 1.5 mg/dL (0.7-1.3); GFR 47.9; MAGNESIUM 2.3 mg/dL (1.8-2.4)
[2016-09-26 08:17] LABS: ALBUMIN 2.6 g/dL (3.4-5.0); DIRECT BILIRUBIN 0.2 mg/dL (0.0-0.2); TOTAL BILIRUBIN 0.5 mg/dL (0.2-1.0); TOTAL PROTEIN 6.9 g/dL (6.4-8.2)
--- NOTE | 2016-09-26 08:17 | RAD ---
Portable chest, 09/26/2016: History: Postop evaluation Comparison is made to yesterday's study. There has been a previous median sternotomy. A left chest tube is unchanged in position. The heart is enlarged. The pulmonary vascularity is normal. There appears to be mild streaky left basilar atelectasis. The right lung is clear. A tiny left apical pneumothorax is now evident. No significant pleural fluid is seen. IMPRESSION: 1. Cardiomegaly without vascular congestion. 2. Mild streaky left basilar atelectasis. 3. Tiny left apical pneumothorax.
[2016-09-26] MEDS: LISINOPRIL 5 MG TABLET. PO SCH (09:00)
[2016-09-26] MEDS: METOPROLOL TART IMMED RELEASE 25 MG TABLET PO SCH ×2 (09:00→22:48)
--- NOTE | 2016-09-26 09:38 | CARD ---
APPROVED REPORT EXAM: Transesophageal echocardiogram with color flow Doppler. Reason For Test : surgical planning PROCEDURE After obtaining informed consent, patient underwent transesophageal echo in the operating room #3. Type of Sedation : General Anesthesia Sedation was provided by anesthesiologist, see EMR for medications administered. Transesophageal probe was inserted and advanced into esophagus by anesthesia.. The BEENA was performed without complications. Throughout the procedure, the blood pressure, pulse oximetry, cardiac rhythm, and rate were monitored . The patient tolerated the procedure without adverse effects. Recovery from conscious sedation was une ventful and vital signs were stable. LEFT VENTRICLE The left ventricle is normal size. There is normal left ventricular wall thickness. The left ventricu lar systolic function is normal and the ejection fraction is within normal range. There is normal LV segmental wall motion. RIGHT VENTRICLE The right ventricle is normal size. The right ventricular systolic function is normal. ATRIA The left atrium size is normal. The right atrium size is normal. AORTIC VALVE The aortic valve is normal in structure and function. The aortic valve is trileaflet. Doppler and Col or Flow revealed no significant aortic regurgitation. MITRAL VALVE The mitral valve is normal in structure and function. There is no mitral valve stenosis. GREAT VESSELS The aortic root is normal in size. The ascending aorta is normal in size. PERICARDIAL EFFUSION Moderate to large pericardial effusion localized mostly laterally and posterioly. No significant ante rior pericardial effusion. Suspect loculated appearance related to fibrin/thrombus from hemorrhagic e ffusion. Post pericardial window, there is only minimal effusion in the posterior cul-de-sac Critical Notification Critical Value: No <Conclusion> The left ventricular systolic function is normal and the ejection fraction is within normal range. There is normal LV segmental wall motion. Moderate to large pericardial effusion localized mostly laterally and posterioly. No significant ante rior pericardial effusion. Suspect loculated appearance related to fibrin/thrombus from hemorrhagic e ffusion. Post pericardial window, there is only minimal effusion in the posterior cul-de-sac
[2016-09-26] MEDS: COLCHICINE 0.6 MG TABLET PO SCH (10:03)
[2016-09-26] MEDS: SENNOSIDES/DOCUSATE 8.6/50MG TABLET. PO SCH ×2 (10:03→22:48)
[2016-09-26] MEDS: FAMOTIDINE 20 MG TABLET. PO SCH ×2 (10:03→22:48)
[2016-09-26] MEDS: AMIODARONE HCL 200 MG TABLET PO SCH ×2 (10:04→22:47)
[2016-09-26] MEDS: LIDOCAINE (700MG/PATCH) PATCH. TD SCH (10:05)
[2016-09-26 11:00] VITALS: BP 100/65
--- NOTE | 2016-09-26 11:50 | PDOC2 ---
CONSULT Date of Consult Date of Consult DATE: 09/26/16 TIME: 11:44 Reason for Consult Reason for Consult: RENAL FAILURE Referring Physician Referring Physician: WILL Identification/Chief Complaint Chief Complaint WEAKNESS AND SOB Source Source: Chart review, Patient History of Present Illness Reason for Visit: THIS IS A 60 YR WITH WEAKNESS AND SOB. DX WITH A PERICARDIAL EFFUSION. HE HAD A REPAIR OF HIS ASCENDING AORTIC ANEURYSM COUPLE WEEKS. AGO. HX NOTABLE FOR RIGHT RCCA AND RIGHT NEPHRECTOMY A DECADE AGO. HE HAS CKD STAGE 3 WITH CR OF 1.6-1.8 AT BASELINE. CR PEAK HERE IS 2.1 Past Medical History Cardiovascular: AFIB, HTN Pulmonary: No pertinent hx GI: No pertinent hx Heme/Onc: Cancer Hepatobiliary: Other Psych: No pertinent hx Musculoskeletal: No pain Rheumatologic: No pertinent hx Infectious disease: No pertinent hx Renal/: Chronic renal insuff Endocrine: No pertinent hx Past Surgical History Past Surgical History: Cholecystectomy, Hernia Repair, Other Family History Family History: Coronary Artery Disease Social History ALCOHOL: none Drugs: None Current Problem List Problem List Problems Medical Problems: (1) Pericardial effusion Status: Acute Current Medications Current Medications Current Medications Fentanyl Citrate (Fentanyl 2ml Vial) 50 mcg PRN Q15MIN PRN IV PAIN GREATER THAN 3/10 Last administered on 09/24/16 14:40; Start 09/24/16 at 12:45; Stop at 18:46; Status DC Ondansetron HCl 4 mg 4 mg 1X ONCE IV Last administered on 09/24/16 12:57; Start 09/24/16 at 12:45; Stop 09/24/16 at 12:46; Status DC Sodium Chloride (Iv Sodium Chloride 0.9% 1000ml Bag) 1,000 ml @ 1,000 mls/hr 1X ONCE IV Last administered on 09/24/16 13:12; Start 09/24/16 at 13:15; Stop 09/24/16 at 14:14; Status DC Sulfur Hexafluoride Microspheres (Lumason) 25 mg STK-MED ONCE IVP ; Start at 15:29; Stop 09/24/16 at 15:30; Status DC Sulfur Hexafluoride Microspheres (Lumason) 25 mg 1X ONCE IVP Last administered on 09/24/16 16:03; Start 09/24/16 at 16:15; Stop 09/24/16 at 16:16 ; Status DC Ondansetron HCl 4 mg 4 mg PRN Q8HRS PRN IV NAUSEA/VOMITING Last administered on 09/25/16 07:15; Start 09/24/16 at 17:00; Stop 09/25/16 at 08:41; Status DC Fentanyl Citrate (Fentanyl 600 Mcg/30 ml [employer]) 30 ml @ 0 mls/hr CONT PRN PRN IV PROTOCOL; Start 09/24/16 at 17:00; Stop 09/24/16 at 18:46; Status DC Naloxone HCl (Narcan) 0.4 mg PRN Q2MIN PRN IV SEE INSTRUCTIONS; Start 09/24/16 at 17:00 Amiodarone HCl (Cordarone) 200 mg BID PO Last administered on 09/26/16 10:04; Start 09/24/16 at 21:00 Metoprolol Tartrate (Lopressor) 25 mg BID PO Last administered on 09/25/16 22: 44; Start 09/24/16 at 21:00 Lisinopril (Prinivil) 5 mg DAILY PO Last administered on 09/25/16 14:29; Start 09/24/16 at 17:30 Allopurinol (Zyloprim) 300 mg DAILY PO ; Start 09/24/16 at 17:30; Stop 09/24/16 at 18:47; Status DC Oxycodone/ Acetaminophen (Percocet 5/325) 1 tab PRN Q4HRS PRN PO PAIN ; Start 09/24/16 at 17:00; Stop 09/25/16 at 11:52; Status DC Oxycodone/ Acetaminophen (Percocet 5/325) 2 tab PRN Q4HRS PRN PO PAIN ; Start 09/24/16 at 17:00; Stop 09/25/16 at 11:52; Status DC Lidocaine (Lidoderm) 2 patch DAILY TD Last administered on 09/26/16 10:05; Start 09/24/16 at 17:15 Ondansetron HCl 4 mg 4 mg PRN Q6HRS PRN IV NAUSEA/VOMITING; Start 09/24/16 at 17:15; Stop 09/25/16 at 11:52; Status DC Morphine Sulfate 30 ml @ 0 mls/hr CONT PRN PRN IV PROTOCOL Last administered on 3/15/17at 03:05; Start 09/24/16 at 18:45; Stop 09/25/16 at 14:09; Status DC Heparin Sodium/ Sodium Chloride 500 ml @ As Directed STK-MED ONCE .ROUTE ; Start 09/25/16 at 06:39; Stop 09/25/16 at 06:40; Status DC Lidocaine HCl 20 ml 20 ml STK-MED ONCE .ROUTE ; Start 09/25/16 at 06:39; Stop at 06:40; Status DC Vancomycin HCl 250 ml @ 250 mls/hr 1X ONCE IV ; Start 09/25/16 at 07:45; Stop 09/25/16 at 08:44; Status Cancel Lidocaine HCl 20 ml STK-MED ONCE .ROUTE ; Start 09/25/16 at 07:42; Stop at 07:43; Status DC Iohexol 100 ml 100 ml STK-MED ONCE .ROUTE ; Start 09/25/16 at 07:58; Stop at 07:59; Status DC Heparin Sodium/ Sodium Chloride 500 ml @ As Directed STK-MED ONCE .ROUTE ; Start 09/25/16 at 07:59; Stop 09/25/16 at 08:00; Status DC Phenylephrine HCl 1 mg STK-MED ONCE IV ; Start 09/25/16 at 08:14; Stop 09/25/16 at 08:15; Status DC Ondansetron HCl (Zofran) 4 mg STK-MED ONCE .ROUTE ; Start 09/25/16 at 08:21; Stop 09/25/16 at 08:22; Status DC Fentanyl Citrate (Fentanyl 5ml Vial) 250 mcg STK-MED ONCE .ROUTE ; Start at 08:36; Stop 09/25/16 at 08:37; Status DC Rocuronium [place] (Zemuron) 100 mg STK-MED ONCE .ROUTE ; Start 09/25/16 at 08: 36; Stop 09/25/16 at 08:37; Status DC Desflurane (Suprane) 90 ml STK-MED ONCE IH ; Start 09/25/16 at 08:36; Stop 09/25 at 08:37; Status DC Ephedrine Sulfate 50 mg 50 mg STK-MED ONCE IV ; Start 09/25/16 at 08:37; Stop at 08:38; Status DC Vancomycin HCl/ Sodium Chloride (Iv Sodium Chloride 0.9% 250ml) 250 ml @ 250 mls/hr 1X ONCE IV Last administered on 09/25/16 09:00; Start 09/25/16 at 09: 00; Stop 09/25/16 at 09:59; Status DC Lidocaine HCl 100 mg STK-MED ONCE .ROUTE ; Start 09/25/16 at 08:37; Stop at 08:38; Status DC Phenylephrine HCl 1 mg STK-MED ONCE IV ; Start 09/25/16 at 08:37; Stop 09/25/16 at 08:38; Status DC Ondansetron HCl (Zofran) 4 mg PRN Q6HRS PRN IV Nausea; Start 09/25/16 at 08:45 ; Stop 09/25/16 at 21:00; Status DC Fentanyl Citrate (Fentanyl 2ml Vial) 25 mcg PRN Q5MIN PRN IV MILD PAIN; Start 09/25/16 at 08:45; Stop 09/25/16 at 21:00; Status DC Fentanyl Citrate (Fentanyl 2ml Vial) 50 mcg PRN Q5MIN PRN IV MODERATE PAIN Last administered on 09/25/16 17:19; Start 09/25/16 at 08:45; Stop 09/25/16 at 21:00; Status DC Morphine Sulfate 1 mg 1 mg PRN Q10MIN PRN IV SEVERE PAIN; Start 09/25/16 at 08: 45; Stop 09/25/16 at 19:32; Status DC Lactated Ringer's (Iv Lactated Ringers) 1,000 ml @ 30 mls/hr Q24H IV ; Start at 09:00; Stop 09/25/16 at 21:00; Status DC Lidocaine HCl 2 ml 1X PRN PRN ID IV START; Start 09/25/16 at 08:45; Stop at 21:00; Status DC Hydromorphone HCl (Dilaudid) 0.5 mg PRN Q10MIN PRN IV SEV PAIN,Second choice; Start 09/25/16 at 08:45; Stop 09/25/16 at 19:32; Status DC Prochlorperazine Edisylate (Compazine) 5 mg PACU PRN PRN IV NAUSEA Last administered on 09/25/16 13:00; Start 09/25/16 at 08:45; Stop 09/25/16 at 21:00 ; Status DC Ondansetron HCl (Zofran) 4 mg STK-MED ONCE .ROUTE ; Start 09/25/16 at 08:44; Stop 09/25/16 at 08:47; Status DC Heparin Sodium/ Sodium Chloride 1,000 unit 1X ONCE IART Last administered on 09:30; Start 09/25/16 at 09:30; Stop 09/25/16 at 09:31; Status DC Lidocaine HCl 20 ml 1X ONCE IJ Last administered on 09/25/16 09:30; Start at 09:30; Stop 09/25/16 at 09:31; Status DC Ondansetron HCl (Zofran) 4 mg 1X ONCE IV Last administered on 09/25/16 09:30 ; Start 09/25/16 at 09:30; Stop 09/25/16 at 09:31; Status DC Phenylephrine HCl (Iraj-Synephrine Inj) 10 mg STK-MED ONCE .ROUTE ; Start at 09:56; Stop 09/25/16 at 09:57; Status DC Phenylephrine HCl (Iraj-Synephrine Inj) 10 mg STK-MED ONCE .ROUTE ; Start at 09:56; Stop 09/25/16 at 09:57; Status DC Glycopyrrolate (Robinul) 1 mg STK-MED ONCE .ROUTE ; Start 09/25/16 at 10:06; Stop 09/25/16 at 10:07; Status DC Neostigmine Methylsulfate 5 mg STK-MED ONCE .ROUTE ; Start 09/25/16 at 10:07; Stop 09/25/16 at 10:08; Status DC Lidocaine HCl 100 mg STK-MED ONCE .ROUTE ; Start 09/25/16 at 10:24; Stop at 10:25; Status DC Isoflurane (Isoflurane) 90 ml STK-MED ONCE IH ; Start 09/25/16 at 10:24; Stop at 10:25; Status DC Sugammadex Sodium (Bridion) 200 mg STK-MED ONCE IVP ; Start 09/25/16 at 10:53; Stop 09/25/16 at 10:54; Status DC Famotidine (Pepcid) 20 mg BID PO Last administered on 09/26/16 10:03; Start at 21:00 Sodium Chloride (Normal Saline Flush) 3 ml QSHIFT PRN IV AFTER MEDS AND BLOOD DRAWS; Start 09/25/16 at 11:30 Oxycodone/ Acetaminophen (Percocet 5/325) 1 tab PRN Q4HRS PRN PO MILD PAIN, 1ST CHOICE Last administered on 09/25/16 17:20; Start 09/25/16 at 11:30; Stop 09/25/16 at 19:33; Status DC Oxycodone/ Acetaminophen (Percocet 5/325) 2 tab PRN Q4HRS PRN PO MODERATE PAIN , SEVERE PAIN Last administered on 09/26/16 10:03; Start 09/25/16 at 11:30 Acetaminophen (Tylenol) 650 mg PRN Q6HRS PRN PO MILD PAIN / TEMP; Start at 11:30 Ondansetron HCl (Zofran) 4 mg PRN Q6HRS PRN IV NAUESA, 1ST CHOICE; Start at 11:30 Metoclopramide HCl (Reglan) 5 mg PRN Q6HRS PRN IV Nausea/Vomiting, 2nd Choice; Start 09/25/16 at 11:30 Senna/Docusate Sodium 1 tab 1 tab BID PO Last administered on 09/26/16 10:03; Start 09/25/16 at 21:00 Cefazolin Sodium/ Sodium Chloride (Ancef/Iv Sodium Chloride 0.9% 100ml) 100 ml @ 200 mls/hr Q6H IV Last administered on 09/25/16 23:43; Start 09/25/16 at 12 :00; Stop 09/26/16 at 00:29; Status DC Hydromorphone HCl (Dilaudid) 0.5 mg PRN Q1HR PRN IV SEVERE PAIN Last administered on 09/26/16 06:02; Start 09/25/16 at 19:45 Oxycodone/ Acetaminophen (Percocet 5/325) 1 tab PRN Q4HRS PRN PO PAIN, 1ST CHOICE Last administered on 3/16/17at 04:04; Start 09/25/16 at 19:30 Colchicine 0.6 mg 0.6 mg DAILY PO Last administered on 09/26/16 10:03; Start 09/25/16 at 20:00 Sodium Chloride (Iv Sodium Chloride 0.9% 1000ml Bag) 1,000 ml @ 125 mls/hr 1X ONCE IV Last administered on 09/25/16 20:03; Start 09/25/16 at 20:00; Stop at 03:59; Status DC Active Scripts Active Aspirin Ec (Aspirin) 325 Mg Tablet.dr 1 Tab PO DAILY Klor-Con M20 (Potassium Chloride) 20 Meq Tab.er.prt 1 Tab PO DAILY Hydrocodone-Apap 5-325 (Hydrocodone Bit/Acetaminophen) 1 Each Tablet 1 Tab PO PRN Q6HRS PRN sig: one or two tabs every 6 hours as needed for pain Mag-Oxide (Magnesium Oxide) 400 Mg Tablet 400 Mg PO BID Furosemide 40 Mg Tablet 40 Mg PO DAILY Amiodarone Hcl 200 Mg Tablet 400 Mg PO BID Reported Metoprolol Tartrate 50 Mg Tablet 1 Tab PO BID Allergies Allergies: Coded Allergies: No Known Drug Allergies (Unverified , 09/10/16) ROS General: YES: Fatigue, Malaise PSYCHOLOGICAL ROS: YES: Anxiety Eyes: Yes Decreased vision HEENT: YES: Heacaches Respiratory: YES: Cough, Shortness of breath Gastrointestinal: Yes Constipation Genitourinary: YES Other (NOCTURIA) Musculoskeletal: Yes Muscular Weakness Neurological: Yes Weakness Skin: Yes Dry Skin Physical Exam General: Alert, Cooperative HEENT: Atraumatic, PERRLA Lungs: Clear to auscultation Heart: Regular rate, Normal S1, Normal S2 Abdomen: Normal bowel sounds, Soft, No tenderness Extremities: No clubbing Skin: No rashes Neuro: Normal speech, Strength at 5/5 X4 ext Psych/Mental Status: Mental status NL, Mood NL MUSCULOSKELETAL: No deformity, No swelling Vitals VITALS Vital Signs Date Time Temp Pulse Resp B/P Pulse Ox O2 Delivery O2 Flow Rate FiO2 09/26/16 11:03 16 96 Nasal Cannula 3.0 09/26/16 10:04 66 94/64 09/26/16 03:05 97.6 97.6 Labs Labs Laboratory Tests Test 09/24/16 12:26 09/24/16 13:00 09/25/16 05:00 09/26/16 07:46 White Blood Count 17.2x10^3/uL (4.0-11.0) 15.4x10^3/uL (4.0-11.0) 14.9x10^3/uL (4.0-11.0) Red Blood Count 3.37x10^6/uL (4.30-5.70) 3.16x10^6/uL (4.30-5.70) 2.76x10^6/uL (4.30-5.70) Hemoglobin 9.9g/dL (13.0-17.5) 9.6g/dL (13.0-17.5) 8.1g/dL (13.0-17.5) Hematocrit 31.0% (39.0-53.0) 29.7% (39.0-53.0) 25.4% (39.0-53.0) Mean Corpuscular Volume 92fL (79-100) 94fL (79-100) 92fL (79-100) Mean Corpuscular Hemoglobin 30pg (25-35) 30pg (25-35) 29pg (25-35) Mean Corpuscular Hemoglobin Concent 32g/dL (31-37) 32g/dL (31-37) 32g/dL (31-37) Red Cell Distribution Width 14.3% (11.5-14.5) 14.5% (11.5-14.5) 14.1% (11.5-14.5) Platelet Count 800x10^3/uL (140-400) 782x10^3/uL (140-400) 637x10^3/uL (140-400) Neutrophils (%) (Auto) 80% (31-73) 76% (31-73) 90% (31-73) Lymphocytes (%) (Auto) 13% (24-48) 13% (24-48) 5% (24-48) Monocytes (%) (Auto) 6% (0-9) 9% (0-9) 5% (0-9) Eosinophils (%) (Auto) 0% (0-3) 1% (0-3) 0% (0-3) Basophils (%) (Auto) 1% (0-3) 1% (0-3) 0% (0-3) Neutrophils # (Auto) 13.7x10^3uL (1.8-7.7) 11.8x10^3uL (1.8-7.7) 13.3x10^3uL (1.8-7.7) Lymphocytes # (Auto) 2.3x10^3/uL (1.0-4.8) 2.0x10^3/uL (1.0-4.8) 0.7x10^3/uL (1.0-4.8) Monocytes # (Auto) 1.0x10^3/uL (0.0-1.1) 1.4x10^3/uL (0.0-1.1) 0.8x10^3/uL (0.0-1.1) Eosinophils # (Auto) 0.0x10^3/uL (0.0-0.7) 0.1x10^3/uL (0.0-0.7) 0.0x10^3/uL (0.0-0.7) Basophils # (Auto) 0.2x10^3/uL (0.0-0.2) 0.2x10^3/uL (0.0-0.2) 0.0x10^3/uL (0.0-0.2) Segmented Neutrophils % 88% (35-66) Lymphocytes % 10% (24-48) Basophils % 1% (0-3) Metamyelocytes % 1% (0-0) Platelet Estimate Increased (ADEQUATE) Giant Platelets Few Polychromasia Slight Prothrombin Time 15.1SEC (11.7-14.0) Prothromb Time International Ratio 1.3 (0.8-1.1) Activated Partial Thromboplast Time 30SEC (24-38) Sodium Level 139mmol/L (136-145) 137mmol/L (136-145) 136mmol/L (136-145) Potassium Level 4.6mmol/L (3.5-5.1) 4.6mmol/L (3.5-5.1) 5.0mmol/L (3.5-5.1) Chloride Level 100mmol/L (98-107) 101mmol/L (98-107) 102mmol/L (98-107) Carbon Dioxide Level 25mmol/L (21-32) 23mmol/L (21-32) 24mmol/L (21-32) Anion Gap 14 (6-14) 13 (6-14) 10 (6-14) Blood Urea Nitrogen 29mg/dL (8-26) 31mg/dL (8-26) 28mg/dL (8-26) Creatinine 1.9mg/dL (0.7-1.3) 2.1mg/dL (0.7-1.3) 1.5mg/dL (0.7-1.3) Estimated GFR (Cockcroft-Gault) 36.5 32.5 47.9 BUN/Creatinine Ratio 15 (6-20) Glucose Level 131mg/dL (70-99) 128mg/dL (70-99) 110mg/dL (70-99) Lactic Acid Level 2.7mmol/L (0.4-2.0) Calcium Level 9.5mg/dL (8.5-10.1) 9.2mg/dL (8.5-10.1) 8.3mg/dL (8.5-10.1) Total Bilirubin 0.9mg/dL (0.2-1.0) 0.5mg/dL (0.2-1.0) Aspartate Amino Transf (AST/SGOT) 65U/L (15-37) 168U/L (15-37) Alanine Aminotransferase (ALT/SGPT) 82U/L (16-63) 259U/L (16-63) Alkaline Phosphatase 261U/L (46-116) 233U/L (46-116) Troponin I Quantitative 0.036ng/mL (0.000-0.055) XY-Dys-V-Type Natriuretic Peptide 6065pg/mL (0-124) Total Protein 8.7g/dL (6.4-8.2) 6.9g/dL (6.4-8.2) Albumin 3.3g/dL (3.4-5.0) 2.6g/dL (3.4-5.0) Albumin/Globulin Ratio 0.6 (1.0-1.7) Influenza Type A Antigen Negative (NEGATIVE) Influenza Type B Antigen Negative (NEGATIVE) Magnesium Level 2.7mg/dL (1.8-2.4) 2.3mg/dL (1.8-2.4) Direct Bilirubin 0.2mg/dL (0.0-0.2) Laboratory Tests Test 09/26/16 07:46 White Blood Count 14.9x10^3/uL (4.0-11.0) Red Blood Count 2.76x10^6/uL (4.30-5.70) Hemoglobin 8.1g/dL (13.0-17.5) Hematocrit 25.4% (39.0-53.0) Mean Corpuscular Volume 92fL (79-100) Mean Corpuscular Hemoglobin 29pg (25-35) Mean Corpuscular Hemoglobin Concent 32g/dL (31-37) Red Cell Distribution Width 14.1% (11.5-14.5) Platelet Count 637x10^3/uL (140-400) Neutrophils (%) (Auto) 90% (31-73) Lymphocytes (%) (Auto) 5% (24-48) Monocytes (%) (Auto) 5% (0-9) Eosinophils (%) (Auto) 0% (0-3) Basophils (%) (Auto) 0% (0-3) Neutrophils # (Auto) 13.3x10^3uL (1.8-7.7) Lymphocytes # (Auto) 0.7x10^3/uL (1.0-4.8) Monocytes # (Auto) 0.8x10^3/uL (0.0-1.1) Eosinophils # (Auto) 0.0x10^3/uL (0.0-0.7) Basophils # (Auto) 0.0x10^3/uL (0.0-0.2) Sodium Level 136mmol/L (136-145) Potassium Level 5.0mmol/L (3.5-5.1) Chloride Level 102mmol/L (98-107) Carbon Dioxide Level 24mmol/L (21-32) Anion Gap 10 (6-14) Blood Urea Nitrogen 28mg/dL (8-26) Creatinine 1.5mg/dL (0.7-1.3) Estimated GFR (Cockcroft-Gault) 47.9 Glucose Level 110mg/dL (70-99) Calcium Level 8.3mg/dL (8.5-10.1) Magnesium Level 2.3mg/dL (1.8-2.4) Total Bilirubin 0.5mg/dL (0.2-1.0) Direct Bilirubin 0.2mg/dL (0.0-0.2) Aspartate Amino Transf (AST/SGOT) 168U/L (15-37) Alanine Aminotransferase (ALT/SGPT) 259U/L (16-63) Alkaline Phosphatase 233U/L (46-116) Total Protein 6.9g/dL (6.4-8.2) Albumin 2.6g/dL (3.4-5.0) Assessment/Plan Assessment/Plan IMP JEREMIAS-CR 2.1 YESTERDAY CKD STAGE 3 WITH CR OF 1.6-1.8 HX OF RIGHT NEPHRECTOMY FOR RCCA A DECADE AGO RECENT ASCENDING AORTIC ANEURYSM REPAIR PERICARDIAL EFFUSION S/P PERICARDIAL WINDOW PLAN PROB MILD JEREMIAS DUE TO INADEQUATE RENAL PERFUSION DUE TO PERICARDIAL EFFUSION-NOW BETTER CONT HOME MEDS LABS IN AM WILL FOLLOW MARGARITA GARAY MD Sep 26, 2016 11:50
--- NOTE | 2016-09-26 12:54 | PDOC ---
[employer] 09/26/16 1254: CARDIO Progress Notes Date and Time Date of Service 09/26/2016 Time of Evaluation 1240 Subjective Subjective: Other (incisional pain ) Vitals Vitals Vital Signs Date Time Temp Pulse Resp B/P Pulse Ox O2 Delivery O2 Flow Rate FiO2 09/26/16 11:03 16 96 Nasal Cannula 3.0 09/26/16 10:04 66 94/64 09/26/16 03:05 97.6 97.6 Weight Weight [ ] Input and Output Intake and Output Intake and Output 09/26/16 07:00 Intake Total 3380 ml Output Total 1310 ml Balance 2070 ml Intake Oral 2380 ml IV Total 1000 ml Output Urine Total 970 ml Chest Tube Drainage Total 340 ml Laboratory Labs Laboratory Tests Test 09/26/16 07:46 White Blood Count 14.9x10^3/uL (4.0-11.0) Red Blood Count 2.76x10^6/uL (4.30-5.70) Hemoglobin 8.1g/dL (13.0-17.5) Hematocrit 25.4% (39.0-53.0) Mean Corpuscular Volume 92fL (79-100) Mean Corpuscular Hemoglobin 29pg (25-35) Mean Corpuscular Hemoglobin Concent 32g/dL (31-37) Red Cell Distribution Width 14.1% (11.5-14.5) Platelet Count 637x10^3/uL (140-400) Neutrophils (%) (Auto) 90% (31-73) Lymphocytes (%) (Auto) 5% (24-48) Monocytes (%) (Auto) 5% (0-9) Eosinophils (%) (Auto) 0% (0-3) Basophils (%) (Auto) 0% (0-3) Neutrophils # (Auto) 13.3x10^3uL (1.8-7.7) Lymphocytes # (Auto) 0.7x10^3/uL (1.0-4.8) Monocytes # (Auto) 0.8x10^3/uL (0.0-1.1) Eosinophils # (Auto) 0.0x10^3/uL (0.0-0.7) Basophils # (Auto) 0.0x10^3/uL (0.0-0.2) Sodium Level 136mmol/L (136-145) Potassium Level 5.0mmol/L (3.5-5.1) Chloride Level 102mmol/L (98-107) Carbon Dioxide Level 24mmol/L (21-32) Anion Gap 10 (6-14) Blood Urea Nitrogen 28mg/dL (8-26) Creatinine 1.5mg/dL (0.7-1.3) Estimated GFR (Cockcroft-Gault) 47.9 Glucose Level 110mg/dL (70-99) Calcium Level 8.3mg/dL (8.5-10.1) Magnesium Level 2.3mg/dL (1.8-2.4) Total Bilirubin 0.5mg/dL (0.2-1.0) Direct Bilirubin 0.2mg/dL (0.0-0.2) Aspartate Amino Transf (AST/SGOT) 168U/L (15-37) Alanine Aminotransferase (ALT/SGPT) 259U/L (16-63) Alkaline Phosphatase 233U/L (46-116) Total Protein 6.9g/dL (6.4-8.2) Albumin 2.6g/dL (3.4-5.0) Physical Exam HEENT: Neck Supple W Full Motion Chest: Symmetric LUNGS: Other (decreased in bases; left pleural tube) Heart: S1S2, RRR, other (tele: SR) Abdomen: Soft N/T (obese abdomen) Extremities: No Edema Neurology: alert, oriented, follow commands Assessment Assessment 1. pericardial effusion s/p VATS and pericardial window; POD #1 per CTS 2. s/p repair ascending aortic aneurysm on 09/10 3. PAF remains SR on tele rate controlled with beta-blockers anti-arrhythmic = amiodarone currently off aspirin 4. CKD history of renal cancer with previous right nephrectomy ? can pt be on colchicine for pericarditis 5. HTN controlled with meds 6. pancreatic mass ALIZA PHAM MD 09/26/165: CARDIO Progress Notes Plan Plan Pt. seen and examined. Agree with above [employer] note. Improvement overnight. Reports pain better controlled. Mild rhonchi on exam labs reviewed. meds reviewed. Continue supportive care. Repeat echo on friday. Will follow. [employer] Sep 26, 2016 12:54 ALIZA PHAM MD Sep 26, 2016 21:35
--- NOTE | 2016-09-26 13:01 | PDOC ---
PROGRESS NOTES Chief Complaint Chief Complaint Pericardial effusion ASSESSMENT AND PLAN: 1. Pericardial effusion: s/p VATS pericardial window placement on 09/[address] Roberson. initial 1.2L, further drainage of ~300cc since. CT remains in place for now. colchicine started for inflammatory response 2. Pain control: dilaudid gtt stopped. has oxy x4PRN, dilaudid IV as 2nd choice 3. JEREMIAS on CKD: creat recovered tro baseline. monitor 4. Transaminitis: worsening. initially thought to be related to cardiac issues. if no improvement, obtain RUQ US 5. Gout: allopurinol listed, but pt only taking PRN. should be no more than 100mg with renal issues Vitals Vitals Vital Signs Date Time Temp Pulse Resp B/P Pulse Ox O2 Delivery O2 Flow Rate FiO2 09/26/16 11:03 16 96 Nasal Cannula 3.0 09/26/16 10:04 66 94/64 09/26/16 03:05 97.6 97.6 Physical Exam General: Alert, Cooperative Heart: Regular rate, Other (CT L lat chest) Lungs: Clear Abdomen: Normal bowel sounds, Soft, No tenderness Extremities: No clubbing Skin: No rashes Labs LABS Laboratory Tests Test 09/26/16 07:46 White Blood Count 14.9x10^3/uL (4.0-11.0) Red Blood Count 2.76x10^6/uL (4.30-5.70) Hemoglobin 8.1g/dL (13.0-17.5) Hematocrit 25.4% (39.0-53.0) Mean Corpuscular Volume 92fL (79-100) Mean Corpuscular Hemoglobin 29pg (25-35) Mean Corpuscular Hemoglobin Concent 32g/dL (31-37) Red Cell Distribution Width 14.1% (11.5-14.5) Platelet Count 637x10^3/uL (140-400) Neutrophils (%) (Auto) 90% (31-73) Lymphocytes (%) (Auto) 5% (24-48) Monocytes (%) (Auto) 5% (0-9) Eosinophils (%) (Auto) 0% (0-3) Basophils (%) (Auto) 0% (0-3) Neutrophils # (Auto) 13.3x10^3uL (1.8-7.7) Lymphocytes # (Auto) 0.7x10^3/uL (1.0-4.8) Monocytes # (Auto) 0.8x10^3/uL (0.0-1.1) Eosinophils # (Auto) 0.0x10^3/uL (0.0-0.7) Basophils # (Auto) 0.0x10^3/uL (0.0-0.2) Sodium Level 136mmol/L (136-145) Potassium Level 5.0mmol/L (3.5-5.1) Chloride Level 102mmol/L (98-107) Carbon Dioxide Level 24mmol/L (21-32) Anion Gap 10 (6-14) Blood Urea Nitrogen 28mg/dL (8-26) Creatinine 1.5mg/dL (0.7-1.3) Estimated GFR (Cockcroft-Gault) 47.9 Glucose Level 110mg/dL (70-99) Calcium Level 8.3mg/dL (8.5-10.1) Magnesium Level 2.3mg/dL (1.8-2.4) Total Bilirubin 0.5mg/dL (0.2-1.0) Direct Bilirubin 0.2mg/dL (0.0-0.2) Aspartate Amino Transf (AST/SGOT) 168U/L (15-37) Alanine Aminotransferase (ALT/SGPT) 259U/L (16-63) Alkaline Phosphatase 233U/L (46-116) Total Protein 6.9g/dL (6.4-8.2) Albumin 2.6g/dL (3.4-5.0) Review of Systems Review of Systems fair pain control. no N/V/abd pain ISIDRO SOLIS MD Sep 26, 2016 13:01
--- NOTE | 2016-09-26 14:27 | PATHOLOGY ---
PATHOLOGY REPORT * * * * * * * * FINAL DIAGNOSIS: Segment of pericardial tissue, excision: - Organizing fibrinous exudate with mild acute and chronic inflammation. COMMENT: There is no evidence of malignancy. (NIRMALM:; d/t: 09/26/16) REPORT ELECTRONICALLY SIGNED BY: Demetrius Doshi M.D. DATE/TIME: 09/26/2016 14:26 * * * * * * * * GROSS PATHOLOGY: The specimen is received in formalin labeled "Felicita Agustina Escobedo, pericardium". Received is a segment of pink-quiroz to yellow-quiroz soft tissue measuring 2.4 x 2.2 x 0.5 cm in greatest dimensions. The specimen is submitted representatively in cassette A1. (CAA; 09/25/2016) INITIAL CPT CODE(S): A; 68141 Professional services performed [place] [facility] [place] [address] Technical services performed by [facility] at [address] [place] [address], [address] [place] [address] Roberson fax: [phone] SPECIMEN(S) RECEIVED: A.Pericardium CLINICAL HISTORY: Pericardial effusion PATIENT: FELICITA VUONG Francisca FORD /AGE: 4 1955 (Age: 60) PATIENT #: [id number] ALT CASE #: SPECIMEN COLLECTION DATE: 09/25/2016 SPECIMEN RECEIVED DATE: 09/25/2016 [facility] - [address] [place] [address] - PHONE: [phone] * * * END OF REPORT * * *
[2016-09-26 15:22] VITALS: BP 126/77
--- NOTE | 2016-09-26 16:00 | PDOC ---
Progress Note Subjective Subjective Feels much better s/p left VATS pericardial window and drainage of 1.2 L of fluid. Pain has significantly improved. Shortness of breath has resolved and blood pressure has also significantly improved. His creatinine is back to baseline at 1.5 from 2.1. Chest tube output approximately 300 mls since OR. Leukocytosis and thrombocytosis resolving. Started on Colchicine for pericarditis. ROS ROS No nausea No vomiting No pain No rash Vital Sign Vital Signs Vital Signs Date Time Temp Pulse Resp B/P Pulse Ox O2 Delivery O2 Flow Rate FiO2 09/26/16 15:22 97.6 82 20 126/77 95 Nasal Cannula 3.0 97.6 Physical Exam PHYSICAL EXAM GENERAL: NAD, Alert HEENT: PERRL, OC/OP NECK: Supple, no JVD, no LN LUNGS: Clear HEART: S1S2, no gallop, no murmur ABD: Soft, NT, no organomegaly, no rebound EXT: No edema, no cyanosis MEDICAL RECORDS CLERK: Alert, oriented x 3, no focal neurologic deficit SKIN: No rash IV: ok Labs Lab Laboratory Tests Test 09/26/16 07:46 White Blood Count 14.9x10^3/uL (4.0-11.0) Red Blood Count 2.76x10^6/uL (4.30-5.70) Hemoglobin 8.1g/dL (13.0-17.5) Hematocrit 25.4% (39.0-53.0) Mean Corpuscular Volume 92fL (79-100) Mean Corpuscular Hemoglobin 29pg (25-35) Mean Corpuscular Hemoglobin Concent 32g/dL (31-37) Red Cell Distribution Width 14.1% (11.5-14.5) Platelet Count 637x10^3/uL (140-400) Neutrophils (%) (Auto) 90% (31-73) Lymphocytes (%) (Auto) 5% (24-48) Monocytes (%) (Auto) 5% (0-9) Eosinophils (%) (Auto) 0% (0-3) Basophils (%) (Auto) 0% (0-3) Neutrophils # (Auto) 13.3x10^3uL (1.8-7.7) Lymphocytes # (Auto) 0.7x10^3/uL (1.0-4.8) Monocytes # (Auto) 0.8x10^3/uL (0.0-1.1) Eosinophils # (Auto) 0.0x10^3/uL (0.0-0.7) Basophils # (Auto) 0.0x10^3/uL (0.0-0.2) Sodium Level 136mmol/L (136-145) Potassium Level 5.0mmol/L (3.5-5.1) Chloride Level 102mmol/L (98-107) Carbon Dioxide Level 24mmol/L (21-32) Anion Gap 10 (6-14) Blood Urea Nitrogen 28mg/dL (8-26) Creatinine 1.5mg/dL (0.7-1.3) Estimated GFR (Cockcroft-Gault) 47.9 Glucose Level 110mg/dL (70-99) Calcium Level 8.3mg/dL (8.5-10.1) Magnesium Level 2.3mg/dL (1.8-2.4) Total Bilirubin 0.5mg/dL (0.2-1.0) Direct Bilirubin 0.2mg/dL (0.0-0.2) Aspartate Amino Transf (AST/SGOT) 168U/L (15-37) Alanine Aminotransferase (ALT/SGPT) 259U/L (16-63) Alkaline Phosphatase 233U/L (46-116) Total Protein 6.9g/dL (6.4-8.2) Albumin 2.6g/dL (3.4-5.0) Objective Assessment POD#1, s/p L VATS pericardial window with drainage of 1.2 L of fluid. He underwent an ascending aortic aneurysm replacement 2 weeks ago. Pain has significantly improved. Shortness of breath has resolved and blood pressure has also significantly improved. His creatinine is back to baseline at 1.5 from 2.1. Chest tube output is approximately 300 mls since OR. Leukocytosis and thrombocytosis resolving. Started on Colchicine for pericarditis. Plan Plan of Care Keep chest tube to suction. Okay to disconnect suction when ambulating. Depending on chest tube output over the next 24 hours, we will plan to clamp the tube tomorrow and repeat an echo on Friday to make sure there is no reaccumulation of pericardial effusion. If there is no recurrent pericardial effusion on echo, we will most likely remove the tube on Friday and then send him home. Continue colchicine Continue eater juan josé and amiodarone for history of postoperative paroxysmal A. fib. Needs to ambulate. FRANKY AMEZCUA MD Sep 26, 2016 16:00
[2016-09-26 19:00] VITALS: BP 126/80
[2016-09-27] VITALS (8 sets, daily range): BP systolic 100–144; BP diastolic 65–81
[2016-09-27 04:50] LABS: BASO # 0.1 x10^3/uL (0.0-0.2); BASO % 1 % (0-3); EOS % 1 % (0-3); HEMATOCRIT 26.5 % (39.0-53.0); HEMOGLOBIN 8.4 g/dL (13.0-17.5); LYMPH # 1.2 x10^3/uL (1.0-4.8); LYMPH % 10 % (24-48); MEAN CORPUSCULAR HEMOGLOBIN 30 pg (25-35); MEAN CORPUSCULAR HGB CONC 32 g/dL (31-37); MEAN CORPUSCULAR VOLUME 93 fL (79-100); MONO % 10 % (0-9); NEUT % 78 % (31-73); PLATELET COUNT 634 x10^3/uL (140-400); RED BLOOD COUNT 2.85 x10^6/uL (4.30-5.70); RED CELL DISTRIBUTION WIDTH 14.6 % (11.5-14.5); WHITE BLOOD COUNT 11.5 x10^3/uL (4.0-11.0)
[2016-09-27 05:07] LABS: CALCIUM 8.4 mg/dL (8.5-10.1); CREATININE 1.5 mg/dL (0.7-1.3); GFR 47.9; POTASSIUM 4.9 mmol/L (3.5-5.1)
[2016-09-27 05:14] LABS: ALBUMIN 2.6 g/dL (3.4-5.0); DIRECT BILIRUBIN 0.2 mg/dL (0.0-0.2); TOTAL BILIRUBIN 0.5 mg/dL (0.2-1.0); TOTAL PROTEIN 6.4 g/dL (6.4-8.2)
[2016-09-27] MEDS: METOPROLOL TART IMMED RELEASE 25 MG TABLET PO SCH ×2 (08:43→20:33)
[2016-09-27] MEDS: COLCHICINE 0.6 MG TABLET PO SCH (08:43)
[2016-09-27] MEDS: LIDOCAINE (700MG/PATCH) PATCH. TD SCH (08:43)
[2016-09-27] MEDS: AMIODARONE HCL 200 MG TABLET PO SCH ×2 (08:44→20:33)
[2016-09-27] MEDS: SENNOSIDES/DOCUSATE 8.6/50MG TABLET. PO SCH ×2 (08:44→20:32)
[2016-09-27] MEDS: FAMOTIDINE 20 MG TABLET. PO SCH (08:44)
[2016-09-27] MEDS: OXYCODONE/APAP 5/325 TABLET. PO PRN ×4 (08:45→20:34)
--- NOTE | 2016-09-27 11:03 | PDOC ---
Renal-Progress Notes Subjective Notes Notes BETTER History of Present Illness Hx of present illness BETTER Vitals Vitals Vital Signs Date Time Temp Pulse Resp B/P Pulse Ox O2 Delivery O2 Flow Rate FiO2 09/27/16 10:10 97.3 75 20 113/78 93 Room Air 97.3 09/27/16 09:45 3.0 Weight Weight [ ] I.O. Intake and Output Intake and Output 09/27/16 07:00 Intake Total 1600 ml Output Total 180 ml Balance 1420 ml Intake Oral 1600 ml Chest Tube Drainage Total 180 ml # Voids 3 Labs Labs Laboratory Tests Test 09/27/16 04:00 White Blood Count 11.5x10^3/uL (4.0-11.0) Red Blood Count 2.85x10^6/uL (4.30-5.70) Hemoglobin 8.4g/dL (13.0-17.5) Hematocrit 26.5% (39.0-53.0) Mean Corpuscular Volume 93fL (79-100) Mean Corpuscular Hemoglobin 30pg (25-35) Mean Corpuscular Hemoglobin Concent 32g/dL (31-37) Red Cell Distribution Width 14.6% (11.5-14.5) Platelet Count 634x10^3/uL (140-400) Neutrophils (%) (Auto) 78% (31-73) Lymphocytes (%) (Auto) 10% (24-48) Monocytes (%) (Auto) 10% (0-9) Eosinophils (%) (Auto) 1% (0-3) Basophils (%) (Auto) 1% (0-3) Neutrophils # (Auto) 9.0x10^3uL (1.8-7.7) Lymphocytes # (Auto) 1.2x10^3/uL (1.0-4.8) Monocytes # (Auto) 1.2x10^3/uL (0.0-1.1) Eosinophils # (Auto) 0.1x10^3/uL (0.0-0.7) Basophils # (Auto) 0.1x10^3/uL (0.0-0.2) Sodium Level 135mmol/L (136-145) Potassium Level 4.9mmol/L (3.5-5.1) Chloride Level 101mmol/L (98-107) Carbon Dioxide Level 27mmol/L (21-32) Anion Gap 7 (6-14) Blood Urea Nitrogen 27mg/dL (8-26) Creatinine 1.5mg/dL (0.7-1.3) Estimated GFR (Cockcroft-Gault) 47.9 Glucose Level 89mg/dL (70-99) Calcium Level 8.4mg/dL (8.5-10.1) Total Bilirubin 0.5mg/dL (0.2-1.0) Direct Bilirubin 0.2mg/dL (0.0-0.2) Aspartate Amino Transf (AST/SGOT) 60U/L (15-37) Alanine Aminotransferase (ALT/SGPT) 139U/L (16-63) Alkaline Phosphatase 212U/L (46-116) Total Protein 6.4g/dL (6.4-8.2) Albumin 2.6g/dL (3.4-5.0) Review of Systems Constitutional: yes: alert, oriented, weakness Ears/Nose/Throat: Yes: no symptom reported Pulmonary: Yes no symptom reported Gastrointestional: Yes: constipation Musculoskeletal: Yes: muscle stiffness Physical Exam General Appearance: no apparent distress Skin: warm Respiratory: bilateral CTA Abdomen: soft, bowel sounds present Neurology: alert Musculoskeletal: No pain Assessment Assessment IMP JEREMIAS-RESOLVED CKD STAGE 3 WITH CR OF 1.6-1.8 PERICARDIAL EFFUSION-S/P WINDOW PLAN CONT SAME OK WITH COLCHICINE WILL FOLLOW MARGARITA GARAY MD Sep 27, 2016 11:03
--- NOTE | 2016-09-27 11:38 | PDOC ---
JAMINBLAS Garrett PRINTED CIRCUIT BOARD PANELS PLATER 09/27/16 1138: CARDIO Progress Notes Date and Time Date of Service 09/27/2016 Time of Evaluation 1100 Subjective Subjective: No Chest Pain, No Palpitations, No Dizziness Vitals Vitals Vital Signs Date Time Temp Pulse Resp B/P Pulse Ox O2 Delivery O2 Flow Rate FiO2 09/27/16 10:10 97.3 75 20 113/78 93 Room Air 97.3 09/27/16 09:45 3.0 Weight Weight [ ] Input and Output Intake and Output Intake and Output 09/27/16 07:00 Intake Total 1600 ml Output Total 180 ml Balance 1420 ml Intake Oral 1600 ml Chest Tube Drainage Total 180 ml # Voids 3 Laboratory Labs Laboratory Tests Test 09/27/16 04:00 White Blood Count 11.5x10^3/uL (4.0-11.0) Red Blood Count 2.85x10^6/uL (4.30-5.70) Hemoglobin 8.4g/dL (13.0-17.5) Hematocrit 26.5% (39.0-53.0) Mean Corpuscular Volume 93fL (79-100) Mean Corpuscular Hemoglobin 30pg (25-35) Mean Corpuscular Hemoglobin Concent 32g/dL (31-37) Red Cell Distribution Width 14.6% (11.5-14.5) Platelet Count 634x10^3/uL (140-400) Neutrophils (%) (Auto) 78% (31-73) Lymphocytes (%) (Auto) 10% (24-48) Monocytes (%) (Auto) 10% (0-9) Eosinophils (%) (Auto) 1% (0-3) Basophils (%) (Auto) 1% (0-3) Neutrophils # (Auto) 9.0x10^3uL (1.8-7.7) Lymphocytes # (Auto) 1.2x10^3/uL (1.0-4.8) Monocytes # (Auto) 1.2x10^3/uL (0.0-1.1) Eosinophils # (Auto) 0.1x10^3/uL (0.0-0.7) Basophils # (Auto) 0.1x10^3/uL (0.0-0.2) Sodium Level 135mmol/L (136-145) Potassium Level 4.9mmol/L (3.5-5.1) Chloride Level 101mmol/L (98-107) Carbon Dioxide Level 27mmol/L (21-32) Anion Gap 7 (6-14) Blood Urea Nitrogen 27mg/dL (8-26) Creatinine 1.5mg/dL (0.7-1.3) Estimated GFR (Cockcroft-Gault) 47.9 Glucose Level 89mg/dL (70-99) Calcium Level 8.4mg/dL (8.5-10.1) Total Bilirubin 0.5mg/dL (0.2-1.0) Direct Bilirubin 0.2mg/dL (0.0-0.2) Aspartate Amino Transf (AST/SGOT) 60U/L (15-37) Alanine Aminotransferase (ALT/SGPT) 139U/L (16-63) Alkaline Phosphatase 212U/L (46-116) Total Protein 6.4g/dL (6.4-8.2) Albumin 2.6g/dL (3.4-5.0) Review of Systems Constitutional: yes: alert, oriented, weakness Ears/Nose/Throat: Yes: no symptom reported Pulmonary: Yes no symptom reported Gastrointestional: Yes: constipation Musculoskeletal: Yes: muscle stiffness Physical Exam HEENT: Neck Supple W Full Motion Chest: Symmetric, Other (left pleural tube) LUNGS: Other (coarse in bases) Heart: S1S2, RRR, other (tele: SR) Abdomen: Soft N/T (obese abdomen) Extremities: No Edema Neurology: alert Assessment Assessment 1. pericardial effusion s/p VATS and pericardial window; POD #2 per CTS 2. s/p repair ascending aortic aneurysm on 09/10 3. PAF remains SR on tele rate controlled with beta-blockers anti-arrhythmic = amiodarone currently off aspirin 4. CKD history of renal cancer with previous right nephrectomy 5. HTN controlled with meds 6. pancreatic mass 7. pericarditis continue colchicine ALIZA PHAM MD 09/27/16 2053: CARDIO Progress Notes Plan Plan Pt. seen and examined. Agree with above OPTICS MANUFACTURING TECHNICIAN note. No significant issues overnight. Continues to have output through chest drain reports improved symptoms Few rhonchi at the bases. No edema Supportive care. Will obtain echo on friday instead of tomorrow as drain won't be clapped till friday, when hopefully he has less drainage. BLAS NEVILLE APRN Sep 27, 2016 11:38 ALIZA PHAM MD Sep 27, 2016 16:52
--- NOTE | 2016-09-27 14:18 | PDOC ---
PROGRESS NOTES Chief Complaint Chief Complaint Pericardial effusion ASSESSMENT AND PLAN: 1. Pericardial effusion: s/p VATS pericardial window placement on 09/[address] Roberson. initial 1.2L, continues to drain significant CT remains in place for now, until decreased output. add PO lasix. colchicine started for inflammatory response 2. Pain control: dilaudid gtt stopped. has oxy x4PRN, dilaudid IV as 2nd choice 3. JEREMIAS on CKD: creat recovered to baseline. monitor 4. Transaminitis: worsening. initially thought to be related to cardiac issues. finally improving 5. Gout: allopurinol listed, but pt only taking PRN. should be no more than 100mg with renal issues Vitals Vitals Vital Signs Date Time Temp Pulse Resp B/P Pulse Ox O2 Delivery O2 Flow Rate FiO2 09/27/16 14:03 97.5 73 21 144/81 95 Room Air 97.5 09/27/16 12:56 3.0 Physical Exam Physical Exam GENERAL: NAD, Alert HEENT: PERRL, OC/OP NECK: Supple, no JVD, no LN LUNGS: Clear HEART: S1S2, no gallop, no murmur ABD: Soft, NT, no organomegaly, no rebound EXT: No edema, no cyanosis DIRECTOR SUPPLY CHAIN: Alert, oriented x 3, no focal neurologic deficit SKIN: No rash IV: ok General: Alert, Cooperative Heart: Regular rate, Other (CT L lat chest) Lungs: Clear Abdomen: Normal bowel sounds, Soft, No tenderness Extremities: No clubbing Skin: No rashes Labs LABS Laboratory Tests Test 09/27/16 04:00 White Blood Count 11.5x10^3/uL (4.0-11.0) Red Blood Count 2.85x10^6/uL (4.30-5.70) Hemoglobin 8.4g/dL (13.0-17.5) Hematocrit 26.5% (39.0-53.0) Mean Corpuscular Volume 93fL (79-100) Mean Corpuscular Hemoglobin 30pg (25-35) Mean Corpuscular Hemoglobin Concent 32g/dL (31-37) Red Cell Distribution Width 14.6% (11.5-14.5) Platelet Count 634x10^3/uL (140-400) Neutrophils (%) (Auto) 78% (31-73) Lymphocytes (%) (Auto) 10% (24-48) Monocytes (%) (Auto) 10% (0-9) Eosinophils (%) (Auto) 1% (0-3) Basophils (%) (Auto) 1% (0-3) Neutrophils # (Auto) 9.0x10^3uL (1.8-7.7) Lymphocytes # (Auto) 1.2x10^3/uL (1.0-4.8) Monocytes # (Auto) 1.2x10^3/uL (0.0-1.1) Eosinophils # (Auto) 0.1x10^3/uL (0.0-0.7) Basophils # (Auto) 0.1x10^3/uL (0.0-0.2) Sodium Level 135mmol/L (136-145) Potassium Level 4.9mmol/L (3.5-5.1) Chloride Level 101mmol/L (98-107) Carbon Dioxide Level 27mmol/L (21-32) Anion Gap 7 (6-14) Blood Urea Nitrogen 27mg/dL (8-26) Creatinine 1.5mg/dL (0.7-1.3) Estimated GFR (Cockcroft-Gault) 47.9 Glucose Level 89mg/dL (70-99) Calcium Level 8.4mg/dL (8.5-10.1) Total Bilirubin 0.5mg/dL (0.2-1.0) Direct Bilirubin 0.2mg/dL (0.0-0.2) Aspartate Amino Transf (AST/SGOT) 60U/L (15-37) Alanine Aminotransferase (ALT/SGPT) 139U/L (16-63) Alkaline Phosphatase 212U/L (46-116) Total Protein 6.4g/dL (6.4-8.2) Albumin 2.6g/dL (3.4-5.0) Review of Systems Review of Systems pain slowly subsiding, but still 6-7. walking w/o ISIDRO RIVAS MD Sep 27, 2016 14:18
--- NOTE | 2016-09-27 17:10 | PDOC ---
Progress Note Subjective Subjective Doing great. Chest pain has significantly improved. Chest tube output approximately 250 mL the 24 hours. Fluid is serous. ROS ROS No nausea No vomiting No pain No rash Vital Sign Vital Signs Vital Signs Date Time Temp Pulse Resp B/P Pulse Ox O2 Delivery O2 Flow Rate FiO2 09/27/16 14:03 97.5 73 21 144/81 95 Room Air 97.5 09/27/16 12:56 3.0 Physical Exam PHYSICAL EXAM GENERAL: NAD, Alert HEENT: PERRL, OC/OP NECK: Supple, no JVD, no LN LUNGS: Clear HEART: S1S2, no gallop, no murmur ABD: Soft, NT, no organomegaly, no rebound EXT: No edema, no cyanosis PROPERTY CLAIMS MANAGER: Alert, oriented x 3, no focal neurologic deficit SKIN: No rash IV: ok Labs Lab Laboratory Tests Test 09/27/16 04:00 White Blood Count 11.5x10^3/uL (4.0-11.0) Red Blood Count 2.85x10^6/uL (4.30-5.70) Hemoglobin 8.4g/dL (13.0-17.5) Hematocrit 26.5% (39.0-53.0) Mean Corpuscular Volume 93fL (79-100) Mean Corpuscular Hemoglobin 30pg (25-35) Mean Corpuscular Hemoglobin Concent 32g/dL (31-37) Red Cell Distribution Width 14.6% (11.5-14.5) Platelet Count 634x10^3/uL (140-400) Neutrophils (%) (Auto) 78% (31-73) Lymphocytes (%) (Auto) 10% (24-48) Monocytes (%) (Auto) 10% (0-9) Eosinophils (%) (Auto) 1% (0-3) Basophils (%) (Auto) 1% (0-3) Neutrophils # (Auto) 9.0x10^3uL (1.8-7.7) Lymphocytes # (Auto) 1.2x10^3/uL (1.0-4.8) Monocytes # (Auto) 1.2x10^3/uL (0.0-1.1) Eosinophils # (Auto) 0.1x10^3/uL (0.0-0.7) Basophils # (Auto) 0.1x10^3/uL (0.0-0.2) Sodium Level 135mmol/L (136-145) Potassium Level 4.9mmol/L (3.5-5.1) Chloride Level 101mmol/L (98-107) Carbon Dioxide Level 27mmol/L (21-32) Anion Gap 7 (6-14) Blood Urea Nitrogen 27mg/dL (8-26) Creatinine 1.5mg/dL (0.7-1.3) Estimated GFR (Cockcroft-Gault) 47.9 Glucose Level 89mg/dL (70-99) Calcium Level 8.4mg/dL (8.5-10.1) Total Bilirubin 0.5mg/dL (0.2-1.0) Direct Bilirubin 0.2mg/dL (0.0-0.2) Aspartate Amino Transf (AST/SGOT) 60U/L (15-37) Alanine Aminotransferase (ALT/SGPT) 139U/L (16-63) Alkaline Phosphatase 212U/L (46-116) Total Protein 6.4g/dL (6.4-8.2) Albumin 2.6g/dL (3.4-5.0) Objective Assessment POD#2, s/p L VATS pericardial window with drainage of 1.2 L of fluid. He underwent an ascending aortic aneurysm replacement 2 weeks ago. Pain has significantly improved. Shortness of breath has resolved and blood pressure have also improved. Started on Colchicine for pericarditis. Left chest tube put out 250 mL's of serous fluid over the last 24 hours. Plan Plan of Care Keep chest tube to suction until Friday morning after which we will clamp the tube. This will be followed by an echo on Friday to confirm no recurrence of pericardial effusion. Okay to disconnect suction when ambulating. FRANKY AMEZCUA MD Sep 27, 2016 17:10
[2016-09-27] MEDS ORDERED: FUROSEMIDE 20 MG TABLET PO SCH (18:00)
[2016-09-28 03:15] VITALS: BP 107/66
[2016-09-28] MEDS: OXYCODONE/APAP 5/325 TABLET. PO PRN ×4 (07:25→21:33)
[2016-09-28 07:52] LABS: CALCIUM 8.8 mg/dL (8.5-10.1); CREATININE 1.4 mg/dL (0.7-1.3); GFR 51.9; POTASSIUM 5.1 mmol/L (3.5-5.1)
[2016-09-28 07:55] VITALS: BP 117/65
[2016-09-28] MEDS: SENNOSIDES/DOCUSATE 8.6/50MG TABLET. PO SCH ×2 (08:39→21:32)
[2016-09-28] MEDS: COLCHICINE 0.6 MG TABLET PO SCH (08:39)
[2016-09-28] MEDS: FUROSEMIDE 20 MG TABLET PO SCH ×2 (08:39→15:34)
[2016-09-28] MEDS: AMIODARONE HCL 200 MG TABLET PO SCH ×2 (08:40→21:32)
[2016-09-28] MEDS: METOPROLOL TART IMMED RELEASE 25 MG TABLET PO SCH ×2 (08:40→21:32)
[2016-09-28] MEDS: LIDOCAINE (700MG/PATCH) PATCH. TD SCH (08:41)
[2016-09-28] MEDS ORDERED: MORPHINE SULFATE 2 MG/ML DISP.SYRIN. IV ONE ×2 (10:30→11:45)
--- NOTE | 2016-09-28 10:39 | PDOC ---
MANUEL CLAROS GOLF COURSE DESIGNER 09/28/16 1039: CARDIO Progress Notes Date and Time Date of Service 09/28/16 Time of Evaluation 0915 Subjective Subjective: No Chest Pain, No shortness of breath, No Palpitations, No Dizziness, Other (mild sternal incisional pain. ) Comments: 100cc serous output overnight Vitals Vitals Vital Signs Date Time Temp Pulse Resp B/P Pulse Ox O2 Delivery O2 Flow Rate FiO2 09/28/16 08:40 87 117/65 09/28/16 08:25 94 Room Air 3.0 09/28/16 07:55 97.8 18 97.8 Weight Weight [ ] Input and Output Intake and Output Intake and Output 09/28/16 07:00 Intake Total 1480 ml Output Total 400 ml Balance 1080 ml Intake Oral 1480 ml Output Urine Total 300 ml Chest Tube Drainage Total 100 ml Laboratory Labs Laboratory Tests Test 09/28/16 06:55 Sodium Level 137mmol/L (136-145) Potassium Level 5.1mmol/L (3.5-5.1) Chloride Level 102mmol/L (98-107) Carbon Dioxide Level 26mmol/L (21-32) Anion Gap 9 (6-14) Blood Urea Nitrogen 20mg/dL (8-26) Creatinine 1.4mg/dL (0.7-1.3) Estimated GFR (Cockcroft-Gault) 51.9 Glucose Level 78mg/dL (70-99) Calcium Level 8.8mg/dL (8.5-10.1) Review of Systems Constitutional: yes: alert, oriented, weakness Ears/Nose/Throat: Yes: no symptom reported Pulmonary: Yes no symptom reported Gastrointestional: Yes: constipation Musculoskeletal: Yes: muscle stiffness Physical Exam HEENT: Neck Supple W Full Motion Chest: Symmetric, Other (left pleural tube) LUNGS: Other (few basilar rhonchi ) Heart: S1S2, RRR, other (tele: SR) Abdomen: Soft N/T (obese abdomen) Extremities: No Edema Neurology: alert, oriented, follow commands Assessment Assessment 1. Pericardial effusion; s/p VATS and pericardial window 2. Ascending aortic aneurysm: s/p repair 09/10/16 3. PAF 4. CKD 5. HTN 6. Pancreatic mass 7. Pericarditis Recommendations Doing well overall. Am labs Monitor drain output over next 24hr; will likely clamp in am. Plan for echo on Friday Continue post-op management per CTS Supportive care ALIZA PHAM MD 09/28/16 1207: CARDIO Progress Notes Plan Plan Pt. seen and examined. Agree with above MESH WORKER note. Has had some increased pain today. Likely as he is not taking his pain meds on time. Continue current pain meds, more a scheduled dose. Will plan for clamping of CT in a.m. Will follow. Ambulating well. Exam unchanged. MANUEL CLAROS APRN Sep 28, 2016 10:39 ALIZA PHAM MD Sep 28, 2016 12:07
--- NOTE | 2016-09-28 11:22 | PDOC ---
Renal-Progress Notes Subjective Notes Notes SITTING UP AND FEELING BETTER History of Present Illness Hx of present illness STABLE Vitals Vitals Vital Signs Date Time Temp Pulse Resp B/P Pulse Ox O2 Delivery O2 Flow Rate FiO2 09/28/16 10:39 94 Room Air 3.0 09/28/16 08:40 87 117/65 09/28/16 07:55 97.8 18 97.8 Weight Weight [ ] I.O. Intake and Output Intake and Output 09/28/16 07:00 Intake Total 1480 ml Output Total 400 ml Balance 1080 ml Intake Oral 1480 ml Output Urine Total 300 ml Chest Tube Drainage Total 100 ml Labs Labs Laboratory Tests Test 09/28/16 06:55 Sodium Level 137mmol/L (136-145) Potassium Level 5.1mmol/L (3.5-5.1) Chloride Level 102mmol/L (98-107) Carbon Dioxide Level 26mmol/L (21-32) Anion Gap 9 (6-14) Blood Urea Nitrogen 20mg/dL (8-26) Creatinine 1.4mg/dL (0.7-1.3) Estimated GFR (Cockcroft-Gault) 51.9 Glucose Level 78mg/dL (70-99) Calcium Level 8.8mg/dL (8.5-10.1) Review of Systems Constitutional: yes: alert, oriented, weakness Ears/Nose/Throat: Yes: no symptom reported Pulmonary: Yes no symptom reported Gastrointestional: Yes: constipation Musculoskeletal: Yes: muscle stiffness Physical Exam General Appearance: no apparent distress Skin: warm Respiratory: bilateral CTA Abdomen: soft, bowel sounds present Neurology: alert, oriented, follow commands Musculoskeletal: No pain Assessment Assessment IMP JEREMIAS-RESOLVED WITH CR 1.5 CKD STAGE 3 WITH CR OF 1.6-1.8 PERICARDIAL EFFUSION-S/P WINDOW HX OF RIGHT NEPHRECTOMY FOR RCCA A DECADE AGO PLAN CONT SAME WILL FOLLOW MARGARITA GARAY MD Sep 28, 2016 11:22
[2016-09-28 11:32] VITALS: BP 124/83
--- NOTE | 2016-09-28 12:10 | PDOC ---
PROGRESS NOTES Chief Complaint Chief Complaint Pericardial effusion ASSESSMENT AND PLAN: 1. Pericardial effusion: s/p VATS pericardial window placement on 09/[address] Roberson. initial 1.2L, continues to drain. CT remains in place for now, until decreased output. add PO lasix. colchicine started for inflammatory response 2. thrombocytosis: inflammatory. improving. poses no increased risk of thrombosis by itself. 3. Pain control: oxy x4PRN, dilaudid IV as 2nd choice. uses PO sporadically. discussed proper regimen with him (again) 4. JEREMIAS on CKD: creat recovered to baseline, stable with lasix and cochicine. monitor 5. Transaminitis: worsening. initially thought to be related to cardiac issues. improving 6. Gout: allopurinol listed, but pt only taking PRN. should be no more than 100mg with renal issues Vitals Vitals Vital Signs Date Time Temp Pulse Resp B/P Pulse Ox O2 Delivery O2 Flow Rate FiO2 09/28/16 11:32 97.9 76 20 124/83 94 Room Air 97.9 09/28/16 10:39 3.0 Physical Exam Physical Exam GENERAL: NAD, Alert HEENT: PERRL, OC/OP NECK: Supple, no JVD, no LN LUNGS: Clear HEART: S1S2, no gallop, no murmur ABD: Soft, NT, no organomegaly, no rebound EXT: No edema, no cyanosis SPECIAL EDUCATION CURRICULUM SPECIALIST: Alert, oriented x 3, no focal neurologic deficit SKIN: No rash IV: ok General: Alert, Cooperative Heart: Regular rate, Other (CT L lat chest) Lungs: Clear Abdomen: Normal bowel sounds, Soft, No tenderness Extremities: No clubbing Skin: No rashes Labs LABS Laboratory Tests Test 09/28/16 06:55 Sodium Level 137mmol/L (136-145) Potassium Level 5.1mmol/L (3.5-5.1) Chloride Level 102mmol/L (98-107) Carbon Dioxide Level 26mmol/L (21-32) Anion Gap 9 (6-14) Blood Urea Nitrogen 20mg/dL (8-26) Creatinine 1.4mg/dL (0.7-1.3) Estimated GFR (Cockcroft-Gault) 51.9 Glucose Level 78mg/dL (70-99) Calcium Level 8.8mg/dL (8.5-10.1) Review of Systems Review of Systems pain at CT site, sarah with cough ISIDRO SOLIS MD Sep 28, 2016 12:10
[2016-09-28 14:14] VITALS: BP 91/68
[2016-09-28 19:55] VITALS: BP 97/59
[2016-09-28 23:34] VITALS: BP 98/73
[2016-09-29 03:00] VITALS: BP 98/60
[2016-09-29] MEDS: OXYCODONE/APAP 5/325 TABLET. PO PRN ×5 (03:40→21:20)
[2016-09-29 07:00] VITALS: BP 127/85
[2016-09-29] MEDS: COLCHICINE 0.6 MG TABLET PO SCH (08:26)
[2016-09-29] MEDS: AMIODARONE HCL 200 MG TABLET PO SCH ×2 (08:28→21:19)
[2016-09-29] MEDS: METOPROLOL TART IMMED RELEASE 25 MG TABLET PO SCH ×2 (08:29→21:20)
[2016-09-29] MEDS: SENNOSIDES/DOCUSATE 8.6/50MG TABLET. PO SCH ×2 (08:29→21:19)
[2016-09-29] MEDS: FUROSEMIDE 20 MG TABLET PO SCH ×2 (08:29→14:00)
[2016-09-29] MEDS: LIDOCAINE (700MG/PATCH) PATCH. TD SCH (08:30)
[2016-09-29 08:34] LABS: BASO # 0.1 x10^3/uL (0.0-0.2); BASO % 1 % (0-3); EOS % 3 % (0-3); HEMATOCRIT 28.5 % (39.0-53.0); HEMOGLOBIN 9.2 g/dL (13.0-17.5); LYMPH # 1.7 x10^3/uL (1.0-4.8); LYMPH % 19 % (24-48); MEAN CORPUSCULAR HEMOGLOBIN 30 pg (25-35); MEAN CORPUSCULAR HGB CONC 32 g/dL (31-37); MEAN CORPUSCULAR VOLUME 92 fL (79-100); MONO % 10 % (0-9); NEUT % 66 % (31-73); PLATELET COUNT 550 x10^3/uL (140-400); RED CELL DISTRIBUTION WIDTH 14.7 % (11.5-14.5); WHITE BLOOD COUNT 8.7 x10^3/uL (4.0-11.0)
[2016-09-29 09:17] LABS: CALCIUM 8.5 mg/dL (8.5-10.1); CREATININE 1.3 mg/dL (0.7-1.3); GFR 56.5; POTASSIUM 5.1 mmol/L (3.5-5.1)
[2016-09-29 10:43] VITALS: BP 114/73
--- NOTE | 2016-09-29 10:59 | PDOC ---
Renal-Progress Notes Subjective Notes Notes OCC SOB History of Present Illness Hx of present illness STABLE Vitals Vitals Vital Signs Date Time Temp Pulse Resp B/P Pulse Ox O2 Delivery O2 Flow Rate FiO2 09/29/16 10:43 97.5 79 18 114/73 96 Room Air 97.5 09/29/16 09:30 3.0 Weight Weight [ ] I.O. Intake and Output Intake and Output 09/29/16 07:00 Intake Total 500 ml Output Total 360 ml Balance 140 ml Intake Oral 500 ml Output Urine Total 300 ml Chest Tube Drainage Total 60 ml # Voids 3 Labs Labs Laboratory Tests Test 09/29/16 08:00 White Blood Count 8.7x10^3/uL (4.0-11.0) Red Blood Count 3.10x10^6/uL (4.30-5.70) Hemoglobin 9.2g/dL (13.0-17.5) Hematocrit 28.5% (39.0-53.0) Mean Corpuscular Volume 92fL (79-100) Mean Corpuscular Hemoglobin 30pg (25-35) Mean Corpuscular Hemoglobin Concent 32g/dL (31-37) Red Cell Distribution Width 14.7% (11.5-14.5) Platelet Count 550x10^3/uL (140-400) Neutrophils (%) (Auto) 66% (31-73) Lymphocytes (%) (Auto) 19% (24-48) Monocytes (%) (Auto) 10% (0-9) Eosinophils (%) (Auto) 3% (0-3) Basophils (%) (Auto) 1% (0-3) Neutrophils # (Auto) 5.8x10^3uL (1.8-7.7) Lymphocytes # (Auto) 1.7x10^3/uL (1.0-4.8) Monocytes # (Auto) 0.9x10^3/uL (0.0-1.1) Eosinophils # (Auto) 0.3x10^3/uL (0.0-0.7) Basophils # (Auto) 0.1x10^3/uL (0.0-0.2) Sodium Level 140mmol/L (136-145) Potassium Level 5.1mmol/L (3.5-5.1) Chloride Level 102mmol/L (98-107) Carbon Dioxide Level 32mmol/L (21-32) Anion Gap 6 (6-14) Blood Urea Nitrogen 16mg/dL (8-26) Creatinine 1.3mg/dL (0.7-1.3) Estimated GFR (Cockcroft-Gault) 56.5 Glucose Level 85mg/dL (70-99) Calcium Level 8.5mg/dL (8.5-10.1) Review of Systems Constitutional: yes: alert, oriented, weakness Ears/Nose/Throat: Yes: no symptom reported Pulmonary: Yes no symptom reported Gastrointestional: Yes: constipation Musculoskeletal: Yes: muscle stiffness Physical Exam General Appearance: no apparent distress Skin: warm Respiratory: bilateral CTA Abdomen: soft, bowel sounds present Neurology: alert, oriented, follow commands Musculoskeletal: No pain Assessment Assessment IMP JEREMIAS-RESOLVED WITH CR 1.5 CKD STAGE 3 WITH CR OF 1.6-1.8 PERICARDIAL EFFUSION-S/P WINDOW HX OF RIGHT NEPHRECTOMY FOR RCCA A DECADE AGO EDEMA PLAN START PO LASIX WILL FOLLOW MARGARITA GARAY MD Sep 29, 2016 10:59
--- NOTE | 2016-09-29 13:22 | PDOC ---
PROGRESS NOTES Chief Complaint Chief Complaint Pericardial effusion ASSESSMENT AND PLAN: 1. Pericardial effusion: s/p VATS pericardial window placement on 09/[address] Roberson. initial 1.2L, continues to drain significant amounts. CT remains in place for now, until decreased output. added PO lasix. colchicine started for inflammatory response 2. thrombocytosis: inflammatory. improving. poses no increased risk of thrombosis by itself. 3. Pain control: oxy x4PRN, dilaudid IV as 2nd choice. uses PO sporadically. 4. JEREMIAS on CKD: creat recovered, stable with lasix and cochicine. monitor 5. Transaminitis: recovering. thought to be related to cardiac issues. 6. Gout: allopurinol listed, but pt only taking PRN. 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, oriented x 3, no focal neurologic deficit SKIN: No rash IV: ok General: Alert, Cooperative Heart: Regular rate, Other (CT L lat chest) Lungs: Clear Abdomen: Normal bowel sounds, Soft, No tenderness Extremities: No clubbing Skin: No rashes Labs LABS Laboratory Tests Test 09/29/16 08:00 White Blood Count 8.7x10^3/uL (4.0-11.0) Red Blood Count 3.10x10^6/uL (4.30-5.70) Hemoglobin 9.2g/dL (13.0-17.5) Hematocrit 28.5% (39.0-53.0) Mean Corpuscular Volume 92fL (79-100) Mean Corpuscular Hemoglobin 30pg (25-35) Mean Corpuscular Hemoglobin Concent 32g/dL (31-37) Red Cell Distribution Width 14.7% (11.5-14.5) Platelet Count 550x10^3/uL (140-400) Neutrophils (%) (Auto) 66% (31-73) Lymphocytes (%) (Auto) 19% (24-48) Monocytes (%) (Auto) 10% (0-9) Eosinophils (%) (Auto) 3% (0-3) Basophils (%) (Auto) 1% (0-3) Neutrophils # (Auto) 5.8x10^3uL (1.8-7.7) Lymphocytes # (Auto) 1.7x10^3/uL (1.0-4.8) Monocytes # (Auto) 0.9x10^3/uL (0.0-1.1) Eosinophils # (Auto) 0.3x10^3/uL (0.0-0.7) Basophils # (Auto) 0.1x10^3/uL (0.0-0.2) Sodium Level 140mmol/L (136-145) Potassium Level 5.1mmol/L (3.5-5.1) Chloride Level 102mmol/L (98-107) Carbon Dioxide Level 32mmol/L (21-32) Anion Gap 6 (6-14) Blood Urea Nitrogen 16mg/dL (8-26) Creatinine 1.3mg/dL (0.7-1.3) Estimated GFR (Cockcroft-Gault) 56.5 Glucose Level 85mg/dL (70-99) Calcium Level 8.5mg/dL (8.5-10.1) Review of Systems Review of Systems continues to improve. CT site painful ISIDRO SOLIS MD Sep 29, 2016 13:22
[2016-09-29] MEDS ORDERED: FUROSEMIDE 20 MG TABLET PO SCH (14:00)
[2016-09-29 14:53] VITALS: BP 92/60
--- NOTE | 2016-09-29 15:39 | PDOC ---
CARDIOLOGY PROGRESS NOTE SUBJECTIVE: No acute events overnight. Feels some chills today. More tired, fatigued. OBJECTIVE: Vital SIgns: Vital Signs Date Time Temp Pulse Resp B/P Pulse Ox O2 Delivery O2 Flow Rate FiO2 09/29/16 14:53 97.6 78 18 92/60 95 Room Air 97.6 09/29/16 13:30 3.0 I & O Intake and Output 09/29/16 07:00 Intake Total 500 ml Output Total 360 ml Balance 140 ml Intake Oral 500 ml Output Urine Total 300 ml Chest Tube Drainage Total 60 ml # Voids 3 Objective: Gen: Mild fatigue. CVS: No rubs. normal s1/s2 CHEST: L chest tube site with mild drainage. No erythema. Midline incision w/o drainage ext no edema. CURRENT MEDICATIONS: Current Medications Medications (Trade) Dose Ordered Sig/Cj Start Time Stop Time Status Last Admin Dose Admin Acetaminophen (Tylenol) 650 mg PRN Q6HRS PRN 09/25/16 11:30 Allopurinol (Zyloprim) 300 mg DAILY 09/24/16 17:30 09/24/16 18:47 DC Amiodarone HCl (Cordarone) 200 mg BID 09/24/16 21:00 09/29/16 08:28 200 MG Cefazolin Sodium/ Sodium Chloride (Ancef/Iv Sodium Chloride 0.9% 100ml) 100 ml @ 200 mls/hr Q6H 09/25/16 12:00 09/26/16 00:29 DC 09/25/16 23:43 200 MLS/HR Colchicine 0.6 mg 0.6 mg DAILY 09/25/16 20:00 09/29/16 08:26 0.6 MG Desflurane (Suprane) 90 ml STK-MED ONCE 09/25/16 08:36 09/25/16 08:37 DC Ephedrine Sulfate 50 mg 50 mg STK-MED ONCE 09/25/16 08:37 09/25/16 08:38 DC Famotidine (Pepcid) 20 mg BID 09/25/16 21:00 09/27/16 13:58 DC 09/27/16 08:44 20 MG Fentanyl Citrate (Fentanyl 2ml Vial) 50 mcg PRN Q5MIN PRN 09/25/16 08:45 09/25/16 21:00 DC 09/25/16 17:19 50 MCG Fentanyl Citrate (Fentanyl 5ml Vial) 250 mcg STK-MED ONCE 09/25/16 08:36 09/25/16 08:37 DC Fentanyl Citrate (Fentanyl 600 Mcg/30 ml TIP INSERTER) 30 ml @ 0 mls/hr CONT PRN PRN 09/24/16 17:00 09/24/16 18:46 DC Furosemide (Lasix) 20 mg [id number] 09/29/16 14:00 Glycopyrrolate (Robinul) 1 mg STK-MED ONCE 09/25/16 10:06 09/25/16 10:07 DC Heparin Sodium/ Sodium Chloride 1,000 unit 1X ONCE 09/25/16 09:30 09/25/16 09:31 DC 09/25/16 09:30 1,000 UNIT Hydromorphone HCl (Dilaudid) 0.5 mg PRN Q1HR PRN 09/25/16 19:45 09/26/16 15:18 0.5 MG Iohexol (Omnipaque 300 Mg/ml) 100 ml STK-MED ONCE 09/25/16 07:58 09/25/16 07:59 DC Isoflurane (Isoflurane) 90 ml STK-MED ONCE 09/25/16 10:24 09/25/16 10:25 DC Lactated Ringer's (Iv Lactated Ringers) 1,000 ml @ 30 mls/hr Q24H 09/25/16 09:00 09/25/16 21:00 DC Lidocaine (Lidoderm) 2 patch DAILY 09/24/16 17:15 09/29/16 08:30 2 PATCH Lidocaine HCl 100 mg STK-MED ONCE 09/25/16 10:24 09/25/16 10:25 DC Lidocaine HCl 20 ml 20 ml STK-MED ONCE 09/25/16 06:39 09/25/16 06:40 DC Lisinopril (Prinivil) 5 mg DAILY 09/24/16 17:30 09/26/16 13:49 DC 09/25/16 14:29 5 MG Metoclopramide HCl (Reglan) 5 mg PRN Q6HRS PRN 09/25/16 11:30 Metoprolol Tartrate (Lopressor) 25 mg BID 09/24/16 21:00 09/29/16 08:29 25 MG Morphine Sulfate 2 mg 1X ONCE 09/28/16 11:45 09/28/16 11:46 DC 09/28/16 12:24 2 MG Morphine Sulfate (Morphine 30 Mg/ 30 ml TIP INSERTER) 30 ml @ 0 mls/hr CONT PRN PRN 09/24/16 18:45 09/25/16 14:09 DC 09/25/16 03:05 0 MLS/HR Morphine Sulfate 1 mg 1 mg PRN Q10MIN PRN 09/25/16 08:45 09/25/16 19:32 DC Naloxone HCl (Narcan) 0.4 mg PRN Q2MIN PRN 09/24/16 17:00 Neostigmine Methylsulfate 5 mg STK-MED ONCE 09/25/16 10:07 09/25/16 10:08 DC Ondansetron HCl (Zofran) 4 mg PRN Q6HRS PRN 09/25/16 11:30 Ondansetron HCl 4 mg 4 mg PRN Q6HRS PRN 09/24/16 17:15 09/25/16 11:52 DC Oxycodone/ Acetaminophen (Percocet 5/325) 1 tab PRN Q4HRS PRN 09/25/16 19:30 09/26/16 04:04 1 TAB Phenylephrine HCl (Iraj-Synephrine Inj) 10 mg STK-MED ONCE 09/25/16 09:56 09/25/16 09:57 DC Prochlorperazine Edisylate (Compazine) 5 mg PACU PRN PRN 09/25/16 08:45 09/25/16 21:00 DC 09/25/16 13:00 5 MG Rocuronium [place] (Zemuron) 100 mg STK-MED ONCE 09/25/16 08:36 09/25/16 08:37 DC Senna/Docusate Sodium 1 tab 1 tab BID 09/25/16 21:00 09/29/16 08:29 1 TAB Sodium Chloride (Iv Sodium Chloride 0.9% 1000ml Bag) 1,000 ml @ 125 mls/hr 1X ONCE 09/25/16 20:00 09/26/16 03:59 DC 09/25/16 20:03 125 MLS/HR Sodium Chloride (Normal Saline Flush) 3 ml QSHIFT PRN 09/25/16 11:30 Sugammadex Sodium (Bridion) 200 mg STK-MED ONCE 09/25/16 10:53 09/25/16 10:54 DC Sulfur Hexafluoride Microspheres (Lumason) 25 mg STK-MED ONCE 09/24/16 15:29 09/24/16 15:30 DC Sulfur Hexafluoride Microspheres 25 mg 25 mg 1X ONCE 09/24/16 16:15 09/24/16 16:16 DC 09/24/16 16:03 25 MG Vancomycin HCl 250 ml @ 250 mls/hr 1X ONCE 09/25/16 07:45 09/25/16 08:44 Cancel Vancomycin HCl/ Sodium Chloride (Iv Sodium Chloride 0.9% 250ml) 250 ml @ 250 mls/hr 1X ONCE 09/25/16 09:00 09/25/16 09:59 DC 09/25/16 09:00 250 MLS/HR DIAGNOSTIC TESTING: labs continue to improve. LFT's, renal function, WBC normalized. ASSESSMENT: 1. Postoperative pericardial effusion now improved. 2. s/p L chest tube and pericardial window. Problems: PLAN: 1. Plan for repeat Chest CT to evaluate effusion status. 2. Check blood and urine studies. 3. Continue supportive care. 4. Clamp CT today. 5. Repeat echo tomorrow. Dr. Roberson to evaluate patient tonight after CT results. ALIZA PHAM MD Sep 29, 2016 15:39
--- NOTE | 2016-09-29 16:41 | RAD ---
Indication: Effusions. Technique: Axial images and coronal and sagittal reformatted images are provided. Comparison is from 5 days ago. One or more of the following individualized dose reduction techniques were utilized for this examination: 1. Automated exposure control 2. Adjustment of the mA and/or kV according to patient size 3. Use of iterative reconstruction technique Findings: Pericardial effusion has nearly completely resolved, minimal residual versus residual pericardial thickening. Mediastinal drain is noted on the left. Subcutaneous gas is present. There is a minimal right pleural effusion. Left pleural effusion has resolved. There is minimal atheromatous disease in the thoracic aorta with postsurgical changes noted. Central airways are patent. There is atelectasis in the lung bases. There is no consolidation. Median sternotomy wires are noted. There is fatty infiltration of the liver. Gallbladder is absent. Patient has underwent right nephrectomy. Impression: Decreased pericardial effusion.
[2016-09-29 19:55] VITALS: BP 90/70
[2016-09-29 23:40] VITALS: BP 109/61
[2016-09-30 03:15] VITALS: BP 107/65
[2016-09-30 05:21] LABS: BASO # 0.1 x10^3/uL (0.0-0.2); BASO % 1 % (0-3); EOS % 4 % (0-3); HEMATOCRIT 29.5 % (39.0-53.0); HEMOGLOBIN 9.7 g/dL (13.0-17.5); LYMPH % 22 % (24-48); MEAN CORPUSCULAR HEMOGLOBIN 29 pg (25-35); MEAN CORPUSCULAR HGB CONC 33 g/dL (31-37); MEAN CORPUSCULAR VOLUME 90 fL (79-100); MONO % 10 % (0-9); NEUT % 63 % (31-73); PLATELET COUNT 545 x10^3/uL (140-400); RED CELL DISTRIBUTION WIDTH 14.9 % (11.5-14.5); WHITE BLOOD COUNT 8.9 x10^3/uL (4.0-11.0)
[2016-09-30 05:55] LABS: CALCIUM 8.8 mg/dL (8.5-10.1); CREATININE 1.2 mg/dL (0.7-1.3); POTASSIUM 4.9 mmol/L (3.5-5.1)
[2016-09-30] MEDS: OXYCODONE/APAP 5/325 TABLET. PO PRN ×3 (06:20→20:28)
[2016-09-30 07:58] VITALS: BP 103/58
[2016-09-30] MEDS ORDERED: FUROSEMIDE 40 MG TABLET PO SCH (09:00)
[2016-09-30] MEDS: LIDOCAINE (700MG/PATCH) PATCH. TD SCH (09:00)
[2016-09-30] MEDS: FUROSEMIDE 20 MG TABLET PO SCH ×2 (09:00→13:16)
[2016-09-30] MEDS ORDERED: SULFUR HEXAFLUORIDE MICROSPHR 25 MG VIAL. IVP ONE ×3 (09:00→10:00)
[2016-09-30] MEDS: SENNOSIDES/DOCUSATE 8.6/50MG TABLET. PO SCH ×2 (09:00→20:21)
--- NOTE | 2016-09-30 09:43 | PDOC ---
SUBJECTIVE ROS CKD II/ III - OBJECTIVE Vital Signs Vital Signs Date Time Temp Pulse Resp B/P Pulse Ox O2 Delivery O2 Flow Rate FiO2 09/30/16 07:58 98.8 83 17 103/58 94 Room Air 98.8 09/29/16 17:30 3.0 I & 0 Intake and Output 09/30/16 07:00 Intake Total 480 ml Output Total 1100 ml Balance -620 ml Intake Oral 480 ml Output Urine Total 1100 ml # Voids 2 PHYSICAL EXAM Physical Exam General Appearance: Awake: Alert Oriented x 3 Neck: No JVD or JVP Chest: CTA Dean Heart: S1 S2 Abdomen - Soft NTND Extremities - No Edema DIAGNOSIS/ASSESSMENT Assessment & Plan JEREMIAS - now resolved will defer Diuretic Regimen to Cardiology Will be available prn - pl call Problems: COMMENT/RELEVANT DATA Meds Current Medications Medications (Trade) Dose Ordered Sig/Cj Start Time Stop Time Status Last Admin Dose Admin Acetaminophen (Tylenol) 650 mg PRN Q6HRS PRN 09/25/16 11:30 Allopurinol (Zyloprim) 300 mg DAILY 09/24/16 17:30 09/24/16 18:47 DC Amiodarone HCl (Cordarone) 200 mg BID 09/24/16 21:00 09/29/16 21:19 200 MG Cefazolin Sodium/ Sodium Chloride (Ancef/Iv Sodium Chloride 0.9% 100ml) 100 ml @ 200 mls/hr Q6H 09/25/16 12:00 09/26/16 00:29 DC 09/25/16 23:43 200 MLS/HR Colchicine 0.6 mg 0.6 mg DAILY 09/25/16 20:00 09/29/16 08:26 0.6 MG Desflurane (Suprane) 90 ml STK-MED ONCE 09/25/16 08:36 09/25/16 08:37 DC Ephedrine Sulfate 50 mg 50 mg STK-MED ONCE 09/25/16 08:37 09/25/16 08:38 DC Famotidine (Pepcid) 20 mg BID 09/25/16 21:00 09/27/16 13:58 DC 09/27/16 08:44 20 MG Fentanyl Citrate (Fentanyl 2ml Vial) 50 mcg PRN Q5MIN PRN 09/25/16 08:45 09/25/16 21:00 DC 3/15/17 17:19 50 MCG Fentanyl Citrate (Fentanyl 5ml Vial) 250 mcg STK-MED ONCE 09/25/16 08:36 09/25/16 08:37 DC Fentanyl Citrate (Fentanyl 600 Mcg/30 ml PROFILE GRINDER TECHNICIAN) 30 ml @ 0 mls/hr CONT PRN PRN 09/24/16 17:00 09/24/16 18:46 DC Furosemide (Lasix) 20 mg [id number] 09/29/16 14:00 Glycopyrrolate (Robinul) 1 mg STK-MED ONCE 09/25/16 10:06 09/25/16 10:07 DC Heparin Sodium/ Sodium Chloride 1,000 unit 1X ONCE 09/25/16 09:30 09/25/16 09:31 DC 09/25/16 09:30 1,000 UNIT Hydromorphone HCl (Dilaudid) 0.5 mg PRN Q1HR PRN 09/25/16 19:45 09/26/16 15:18 0.5 MG Iohexol (Omnipaque 300 Mg/ml) 100 ml STK-MED ONCE 09/25/16 07:58 09/25/16 07:59 DC Isoflurane (Isoflurane) 90 ml STK-MED ONCE 09/25/16 10:24 09/25/16 10:25 DC Lactated Ringer's (Iv Lactated Ringers) 1,000 ml @ 30 mls/hr Q24H 09/25/16 09:00 09/25/16 21:00 DC Lidocaine (Lidoderm) 2 patch DAILY 09/24/16 17:15 09/29/16 08:30 2 PATCH Lidocaine HCl 100 mg STK-MED ONCE 09/25/16 10:24 09/25/16 10:25 DC Lidocaine HCl 20 ml 20 ml STK-MED ONCE 09/25/16 06:39 09/25/16 06:40 DC Lisinopril (Prinivil) 5 mg DAILY 09/24/16 17:30 09/26/16 13:49 DC 09/25/16 14:29 5 MG Metoclopramide HCl (Reglan) 5 mg PRN Q6HRS PRN 09/25/16 11:30 Metoprolol Tartrate (Lopressor) 25 mg BID 09/24/16 21:00 09/29/16 21:20 25 MG Morphine Sulfate 2 mg 1X ONCE 09/28/16 11:45 09/28/16 11:46 DC 09/28/16 12:24 2 MG Morphine Sulfate (Morphine 30 Mg/ 30 ml PROFILE GRINDER TECHNICIAN) 30 ml @ 0 mls/hr CONT PRN PRN 09/24/16 18:45 09/25/16 14:09 DC 09/25/16 03:05 0 MLS/HR Morphine Sulfate 1 mg 1 mg PRN Q10MIN PRN 09/25/16 08:45 09/25/16 19:32 DC Naloxone HCl (Narcan) 0.4 mg PRN Q2MIN PRN 09/24/16 17:00 Neostigmine Methylsulfate 5 mg STK-MED ONCE 09/25/16 10:07 09/25/16 10:08 DC Ondansetron HCl (Zofran) 4 mg PRN Q6HRS PRN 09/25/16 11:30 Ondansetron HCl 4 mg 4 mg PRN Q6HRS PRN 09/24/16 17:15 09/25/16 11:52 DC Oxycodone/ Acetaminophen (Percocet 5/325) 1 tab PRN Q4HRS PRN 09/25/16 19:30 09/26/16 04:04 1 TAB Phenylephrine HCl (Iraj-Synephrine Inj) 10 mg STK-MED ONCE 09/25/16 09:56 09/25/16 09:57 DC Prochlorperazine Edisylate (Compazine) 5 mg PACU PRN PRN 09/25/16 08:45 09/25/16 21:00 DC 09/25/16 13:00 5 MG Rocuronium [place] (Zemuron) 100 mg STK-MED ONCE 09/25/16 08:36 09/25/16 08:37 DC Senna/Docusate Sodium 1 tab 1 tab BID 09/25/16 21:00 09/29/16 21:19 1 TAB Sodium Chloride (Iv Sodium Chloride 0.9% 1000ml Bag) 1,000 ml @ 125 mls/hr 1X ONCE 09/25/16 20:00 09/26/16 03:59 DC 09/25/16 20:03 125 MLS/HR Sodium Chloride (Normal Saline Flush) 3 ml QSHIFT PRN 09/25/16 11:30 Sugammadex Sodium (Bridion) 200 mg STK-MED ONCE 09/25/16 10:53 09/25/16 10:54 DC Sulfur Hexafluoride Microspheres (Lumason) 25 mg STK-MED ONCE 09/30/16 09:20 09/30/16 09:21 DC Sulfur Hexafluoride Microspheres 25 mg 25 mg 1X ONCE 09/24/16 16:15 09/24/16 16:16 DC 09/24/16 16:03 25 MG Vancomycin HCl 250 ml @ 250 mls/hr 1X ONCE 09/25/16 07:45 09/25/16 08:44 Cancel Vancomycin HCl/ Sodium Chloride (Iv Sodium Chloride 0.9% 250ml) 250 ml @ 250 mls/hr 1X ONCE 09/25/16 09:00 09/25/16 09:59 DC 09/25/16 09:00 250 MLS/HR Lab Laboratory Tests Test 09/30/16 05:04 White Blood Count 8.9x10^3/uL (4.0-11.0) Red Blood Count 3.30x10^6/uL (4.30-5.70) Hemoglobin 9.7g/dL (13.0-17.5) Hematocrit 29.5% (39.0-53.0) Mean Corpuscular Volume 90fL (79-100) Mean Corpuscular Hemoglobin 29pg (25-35) Mean Corpuscular Hemoglobin Concent 33g/dL (31-37) Red Cell Distribution Width 14.9% (11.5-14.5) Platelet Count 545x10^3/uL (140-400) Neutrophils (%) (Auto) 63% (31-73) Lymphocytes (%) (Auto) 22% (24-48) Monocytes (%) (Auto) 10% (0-9) Eosinophils (%) (Auto) 4% (0-3) Basophils (%) (Auto) 1% (0-3) Neutrophils # (Auto) 5.6x10^3uL (1.8-7.7) Lymphocytes # (Auto) 2.0x10^3/uL (1.0-4.8) Monocytes # (Auto) 0.9x10^3/uL (0.0-1.1) Eosinophils # (Auto) 0.4x10^3/uL (0.0-0.7) Basophils # (Auto) 0.1x10^3/uL (0.0-0.2) Sodium Level 140mmol/L (136-145) Potassium Level 4.9mmol/L (3.5-5.1) Chloride Level 104mmol/L (98-107) Carbon Dioxide Level 26mmol/L (21-32) Anion Gap 10 (6-14) Blood Urea Nitrogen 13mg/dL (8-26) Creatinine 1.2mg/dL (0.7-1.3) Estimated GFR (Cockcroft-Gault) 62.0 Glucose Level 88mg/dL (70-99) Calcium Level 8.8mg/dL (8.5-10.1) ULYSSES PIRES MD Sep 30, 2016 09:43
[2016-09-30] MEDS: COLCHICINE 0.6 MG TABLET PO SCH (10:09)
[2016-09-30] MEDS: AMIODARONE HCL 200 MG TABLET PO SCH ×2 (10:09→20:22)
[2016-09-30] MEDS: METOPROLOL TART IMMED RELEASE 25 MG TABLET PO SCH ×2 (10:11→20:22)
[2016-09-30 10:45] LABS: ALBUMIN 2.5 g/dL (3.4-5.0); DIRECT BILIRUBIN 0.1 mg/dL (0.0-0.2); TOTAL BILIRUBIN 0.4 mg/dL (0.2-1.0); TOTAL PROTEIN 6.4 g/dL (6.4-8.2)
[2016-09-30 10:50] VITALS: BP 115/74
--- NOTE | 2016-09-30 13:16 | PDOC ---
JAMINBLAS M BUILDING MOVER 09/30/16 1316: CARDIO Progress Notes Date and Time Date of Service 10/01/2015 Time of Evaluation 1116 Subjective Subjective: No shortness of breath, No Palpitations, No Dizziness, Other ( sternal incisional and left pleural tube pain ) Vitals Vitals Vital Signs Date Time Temp Pulse Resp B/P Pulse Ox O2 Delivery O2 Flow Rate FiO2 09/30/16 10:50 97.8 81 18 115/74 95 Room Air 97.8 09/29/16 17:30 3.0 Weight Weight [ ] Input and Output Intake and Output Intake and Output 09/30/16 07:00 Intake Total 480 ml Output Total 1100 ml Balance -620 ml Intake Oral 480 ml Output Urine Total 1100 ml # Voids 2 Laboratory Labs Laboratory Tests Test 09/30/16 05:04 White Blood Count 8.9x10^3/uL (4.0-11.0) Red Blood Count 3.30x10^6/uL (4.30-5.70) Hemoglobin 9.7g/dL (13.0-17.5) Hematocrit 29.5% (39.0-53.0) Mean Corpuscular Volume 90fL (79-100) Mean Corpuscular Hemoglobin 29pg (25-35) Mean Corpuscular Hemoglobin Concent 33g/dL (31-37) Red Cell Distribution Width 14.9% (11.5-14.5) Platelet Count 545x10^3/uL (140-400) Neutrophils (%) (Auto) 63% (31-73) Lymphocytes (%) (Auto) 22% (24-48) Monocytes (%) (Auto) 10% (0-9) Eosinophils (%) (Auto) 4% (0-3) Basophils (%) (Auto) 1% (0-3) Neutrophils # (Auto) 5.6x10^3uL (1.8-7.7) Lymphocytes # (Auto) 2.0x10^3/uL (1.0-4.8) Monocytes # (Auto) 0.9x10^3/uL (0.0-1.1) Eosinophils # (Auto) 0.4x10^3/uL (0.0-0.7) Basophils # (Auto) 0.1x10^3/uL (0.0-0.2) Sodium Level 140mmol/L (136-145) Potassium Level 4.9mmol/L (3.5-5.1) Chloride Level 104mmol/L (98-107) Carbon Dioxide Level 26mmol/L (21-32) Anion Gap 10 (6-14) Blood Urea Nitrogen 13mg/dL (8-26) Creatinine 1.2mg/dL (0.7-1.3) Estimated GFR (Cockcroft-Gault) 62.0 Glucose Level 88mg/dL (70-99) Calcium Level 8.8mg/dL (8.5-10.1) Total Bilirubin 0.4mg/dL (0.2-1.0) Direct Bilirubin 0.1mg/dL (0.0-0.2) Aspartate Amino Transf (AST/SGOT) 22U/L (15-37) Alanine Aminotransferase (ALT/SGPT) 79U/L (16-63) Alkaline Phosphatase 184U/L (46-116) Total Protein 6.4g/dL (6.4-8.2) Albumin 2.5g/dL (3.4-5.0) Review of Systems Constitutional: yes: alert, oriented, weakness Ears/Nose/Throat: Yes: no symptom reported Pulmonary: Yes no symptom reported Gastrointestional: Yes: constipation Musculoskeletal: Yes: muscle stiffness Physical Exam HEENT: Neck Supple W Full Motion Chest: Symmetric, Other (left pleural tube) LUNGS: Other (decreased on left base) Heart: S1S2, RRR, no murmurs, other (tele: SR) Abdomen: Soft N/T (obese abdomen) Extremities: No Edema Neurology: alert, oriented, follow commands Assessment Assessment 1. pericardial effusion s/p VATS and pericardial window; POD #5 per CTS on colchicine for pericarditis repeat echo pending to re-evaluate pericardial effusion 2. s/p repair ascending aortic aneurysm on 09/10 3. PAF remains SR on tele rate controlled with beta-blockers anti-arrhythmic = amiodarone currently off aspirin - ? resume 4. CKD history of renal cancer with previous right nephrectomy 5. HTN controlled with ALIZA Lowery MD 09/30/16 1353: CARDIO Progress Notes Plan Plan Pt. seen and examined. Agree with above SENIOR BUSINESS INTELLIGENCE ANALYST note. No acute events overnight. CT scan negative yesterday. On exam he has normal heart tones. No rubs. Repeat echo w/o effusion plan to remove CT and hopefully home later today. BLAS NEVIL[place] APRN Sep 30, 2016 13:16 ALIZA PHAM MD Sep 30, 2016 13:53
--- NOTE | 2016-09-30 13:44 | PDOC ---
PROGRESS NOTES Chief Complaint Chief Complaint Pericardial effusion ASSESSMENT AND PLAN: 1. Pericardial effusion: s/p VATS pericardial window placement on 09/[address] Roberson. 2. thrombocytosis: inflammatory. improving. 3. Obesity 4. JEREMIAS on CKD: 5. Transaminitis: recovered 6. Gout: 7. MIld to mod pcm History of Present Illness History of Present Illness Asleep, chest tube in Did not awaken LAbs and other notes reviewed PLAN: TCVS to review rpt CT as per other Interval echo planned Ff up on the above,,, labs in AM Follow cards and TCVS recs Vitals Vitals Vital Signs Date Time Temp Pulse Resp B/P Pulse Ox O2 Delivery O2 Flow Rate FiO2 09/30/16 10:50 97.8 81 18 115/74 95 Room Air 97.8 09/29/16 17:30 3.0 Physical Exam Physical Exam GENERAL: NAD, Alert HEENT: PERRL, OC/OP NECK: Supple, no JVD, no LN LUNGS: Clear HEART: S1S2, no gallop, no murmur ABD: Soft, NT, no organomegaly, no rebound EXT: No edema, no cyanosis 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: Alert, oriented x 3, no focal neurologic deficit SKIN: No rash IV: ok General: Alert, Cooperative Heart: Regular rate, Other (CT L lat chest) Lungs: Clear Abdomen: Normal bowel sounds, Soft, No tenderness Extremities: No clubbing Skin: No rashes Labs LABS Laboratory Tests Test 09/30/16 05:04 White Blood Count 8.9x10^3/uL (4.0-11.0) Red Blood Count 3.30x10^6/uL (4.30-5.70) Hemoglobin 9.7g/dL (13.0-17.5) Hematocrit 29.5% (39.0-53.0) Mean Corpuscular Volume 90fL (79-100) Mean Corpuscular Hemoglobin 29pg (25-35) Mean Corpuscular Hemoglobin Concent 33g/dL (31-37) Red Cell Distribution Width 14.9% (11.5-14.5) Platelet Count 545x10^3/uL (140-400) Neutrophils (%) (Auto) 63% (31-73) Lymphocytes (%) (Auto) 22% (24-48) Monocytes (%) (Auto) 10% (0-9) Eosinophils (%) (Auto) 4% (0-3) Basophils (%) (Auto) 1% (0-3) Neutrophils # (Auto) 5.6x10^3uL (1.8-7.7) Lymphocytes # (Auto) 2.0x10^3/uL (1.0-4.8) Monocytes # (Auto) 0.9x10^3/uL (0.0-1.1) Eosinophils # (Auto) 0.4x10^3/uL (0.0-0.7) Basophils # (Auto) 0.1x10^3/uL (0.0-0.2) Sodium Level 140mmol/L (136-145) Potassium Level 4.9mmol/L (3.5-5.1) Chloride Level 104mmol/L (98-107) Carbon Dioxide Level 26mmol/L (21-32) Anion Gap 10 (6-14) Blood Urea Nitrogen 13mg/dL (8-26) Creatinine 1.2mg/dL (0.7-1.3) Estimated GFR (Cockcroft-Gault) 62.0 Glucose Level 88mg/dL (70-99) Calcium Level 8.8mg/dL (8.5-10.1) Total Bilirubin 0.4mg/dL (0.2-1.0) Direct Bilirubin 0.1mg/dL (0.0-0.2) Aspartate Amino Transf (AST/SGOT) 22U/L (15-37) Alanine Aminotransferase (ALT/SGPT) 79U/L (16-63) Alkaline Phosphatase 184U/L (46-116) Total Protein 6.4g/dL (6.4-8.2) Albumin 2.5g/dL (3.4-5.0) Review of Systems Review of Systems unable to obtain - asleep princess chiu Assessment and Plan Assessmemt and Plan Problems Medical Problems: (1) Pericardial effusion Status: Acute Problems: Comment Review of Relevant I have reviewed the following items danay (where applicable) has been applied. Labs Laboratory Tests Test 09/29/16 08:00 09/30/16 05:04 White Blood Count 8.7x10^3/uL (4.0-11.0) 8.9x10^3/uL (4.0-11.0) Red Blood Count 3.10x10^6/uL (4.30-5.70) 3.30x10^6/uL (4.30-5.70) Hemoglobin 9.2g/dL (13.0-17.5) 9.7g/dL (13.0-17.5) Hematocrit 28.5% (39.0-53.0) 29.5% (39.0-53.0) Mean Corpuscular Volume 92fL (79-100) 90fL (79-100) Mean Corpuscular Hemoglobin 30pg (25-35) 29pg (25-35) Mean Corpuscular Hemoglobin Concent 32g/dL (31-37) 33g/dL (31-37) Red Cell Distribution Width 14.7% (11.5-14.5) 14.9% (11.5-14.5) Platelet Count 550x10^3/uL (140-400) 545x10^3/uL (140-400) Neutrophils (%) (Auto) 66% (31-73) 63% (31-73) Lymphocytes (%) (Auto) 19% (24-48) 22% (24-48) Monocytes (%) (Auto) 10% (0-9) 10% (0-9) Eosinophils (%) (Auto) 3% (0-3) 4% (0-3) Basophils (%) (Auto) 1% (0-3) 1% (0-3) Neutrophils # (Auto) 5.8x10^3uL (1.8-7.7) 5.6x10^3uL (1.8-7.7) Lymphocytes # (Auto) 1.7x10^3/uL (1.0-4.8) 2.0x10^3/uL (1.0-4.8) Monocytes # (Auto) 0.9x10^3/uL (0.0-1.1) 0.9x10^3/uL (0.0-1.1) Eosinophils # (Auto) 0.3x10^3/uL (0.0-0.7) 0.4x10^3/uL (0.0-0.7) Basophils # (Auto) 0.1x10^3/uL (0.0-0.2) 0.1x10^3/uL (0.0-0.2) Sodium Level 140mmol/L (136-145) 140mmol/L (136-145) Potassium Level 5.1mmol/L (3.5-5.1) 4.9mmol/L (3.5-5.1) Chloride Level 102mmol/L (98-107) 104mmol/L (98-107) Carbon Dioxide Level 32mmol/L (21-32) 26mmol/L (21-32) Anion Gap 6 (6-14) 10 (6-14) Blood Urea Nitrogen 16mg/dL (8-26) 13mg/dL (8-26) Creatinine 1.3mg/dL (0.7-1.3) 1.2mg/dL (0.7-1.3) Estimated GFR (Cockcroft-Gault) 56.5 62.0 Glucose Level 85mg/dL (70-99) 88mg/dL (70-99) Calcium Level 8.5mg/dL (8.5-10.1) 8.8mg/dL (8.5-10.1) Total Bilirubin 0.4mg/dL (0.2-1.0) Direct Bilirubin 0.1mg/dL (0.0-0.2) Aspartate Amino Transf (AST/SGOT) 22U/L (15-37) Alanine Aminotransferase (ALT/SGPT) 79U/L (16-63) Alkaline Phosphatase 184U/L (46-116) Total Protein 6.4g/dL (6.4-8.2) Albumin 2.5g/dL (3.4-5.0) Laboratory Tests Test 09/30/16 05:04 White Blood Count 8.9x10^3/uL (4.0-11.0) Red Blood Count 3.30x10^6/uL (4.30-5.70) Hemoglobin 9.7g/dL (13.0-17.5) Hematocrit 29.5% (39.0-53.0) Mean Corpuscular Volume 90fL (79-100) Mean Corpuscular Hemoglobin 29pg (25-35) Mean Corpuscular Hemoglobin Concent 33g/dL (31-37) Red Cell Distribution Width 14.9% (11.5-14.5) Platelet Count 545x10^3/uL (140-400) Neutrophils (%) (Auto) 63% (31-73) Lymphocytes (%) (Auto) 22% (24-48) Monocytes (%) (Auto) 10% (0-9) Eosinophils (%) (Auto) 4% (0-3) Basophils (%) (Auto) 1% (0-3) Neutrophils # (Auto) 5.6x10^3uL (1.8-7.7) Lymphocytes # (Auto) 2.0x10^3/uL (1.0-4.8) Monocytes # (Auto) 0.9x10^3/uL (0.0-1.1) Eosinophils # (Auto) 0.4x10^3/uL (0.0-0.7) Basophils # (Auto) 0.1x10^3/uL (0.0-0.2) Sodium Level 140mmol/L (136-145) Potassium Level 4.9mmol/L (3.5-5.1) Chloride Level 104mmol/L (98-107) Carbon Dioxide Level 26mmol/L (21-32) Anion Gap 10 (6-14) Blood Urea Nitrogen 13mg/dL (8-26) Creatinine 1.2mg/dL (0.7-1.3) Estimated GFR (Cockcroft-Gault) 62.0 Glucose Level 88mg/dL (70-99) Calcium Level 8.8mg/dL (8.5-10.1) Total Bilirubin 0.4mg/dL (0.2-1.0) Direct Bilirubin 0.1mg/dL (0.0-0.2) Aspartate Amino Transf (AST/SGOT) 22U/L (15-37) Alanine Aminotransferase (ALT/SGPT) 79U/L (16-63) Alkaline Phosphatase 184U/L (46-116) Total Protein 6.4g/dL (6.4-8.2) Albumin 2.5g/dL (3.4-5.0) Medications Current Medications Fentanyl Citrate (Fentanyl 2ml Vial) 50 mcg PRN Q15MIN PRN IV PAIN GREATER THAN 3/10 Last administered on 09/24/16t 14:40; Start 09/24/16 at 12:45; Stop at 18:46; Status DC Ondansetron HCl 4 mg 4 mg 1X ONCE IV Last administered on 09/24/16 12:57; Start 09/24/16 at 12:45; Stop 09/24/16 at 12:46; Status DC Sodium Chloride (Iv Sodium Chloride 0.9% 1000ml Bag) 1,000 ml @ 1,000 mls/hr 1X ONCE IV Last administered on 09/24/16 13:12; Start 09/24/16 at 13:15; Stop 09/24/16 at 14:14; Status DC Sulfur Hexafluoride Microspheres (Lumason) 25 mg STK-MED ONCE IVP ; Start at 15:29; Stop 09/24/16 at 15:30; Status DC Sulfur Hexafluoride Microspheres (Lumason) 25 mg 1X ONCE IVP Last administered on 09/24/16 16:03; Start 09/24/16 at 16:15; Stop 09/24/16 at 16:16 ; Status DC Ondansetron HCl 4 mg 4 mg PRN Q8HRS PRN IV NAUSEA/VOMITING Last administered on 09/25/16 07:15; Start 09/24/16 at 17:00; Stop 09/25/16 at 08:41; Status DC Fentanyl Citrate (Fentanyl 600 Mcg/30 ml HOTEL SECURITY OFFICER) 30 ml @ 0 mls/hr CONT PRN PRN IV PROTOCOL; Start 09/24/16 at 17:00; Stop 09/24/16 at 18:46; Status DC Naloxone HCl (Narcan) 0.4 mg PRN Q2MIN PRN IV SEE INSTRUCTIONS; Start 09/24/16 at 17:00 Amiodarone HCl (Cordarone) 200 mg BID PO Last administered on 09/30/16 10:09; Start 09/24/16 at 21:00 Metoprolol Tartrate (Lopressor) 25 mg BID PO Last administered on 09/30/16 10: 11; Start 09/24/16 at 21:00 Lisinopril (Prinivil) 5 mg DAILY PO Last administered on 09/25/16 14:29; Start 09/24/16 at 17:30; Stop 09/26/16 at 13:49; Status DC Allopurinol (Zyloprim) 300 mg DAILY PO ; Start 09/24/16 at 17:30; Stop 09/24/16 at 18:47; Status DC Oxycodone/ Acetaminophen (Percocet 5/325) 1 tab PRN Q4HRS PRN PO PAIN ; Start 09/24/16 at 17:00; Stop 09/25/16 at 11:52; Status DC Oxycodone/ Acetaminophen (Percocet 5/325) 2 tab PRN Q4HRS PRN PO PAIN ; Start 09/24/16 at 17:00; Stop 09/25/16 at 11:52; Status DC Lidocaine (Lidoderm) 2 patch DAILY TD Last administered on 09/29/16 08:30; Start 09/24/16 at 17:15 Ondansetron HCl 4 mg 4 mg PRN Q6HRS PRN IV NAUSEA/VOMITING; Start 09/24/16 at 17:15; Stop 09/25/16 at 11:52; Status DC Morphine Sulfate 30 ml @ 0 mls/hr CONT PRN PRN IV PROTOCOL Last administered on 09/25/16t 03:05; Start 09/24/16 at 18:45; Stop 09/25/16 at 14:09; Status DC Heparin Sodium/ Sodium Chloride 500 ml @ As Directed STK-MED ONCE .ROUTE ; Start 09/25/16 at 06:39; Stop 09/25/16 at 06:40; Status DC Lidocaine HCl 20 ml 20 ml STK-MED ONCE .ROUTE ; Start 09/25/16 at 06:39; Stop at 06:40; Status DC Vancomycin HCl 250 ml @ 250 mls/hr 1X ONCE IV ; Start 09/25/16 at 07:45; Stop 09/25/16 at 08:44; Status Cancel Lidocaine HCl 20 ml STK-MED ONCE .ROUTE ; Start 09/25/16 at 07:42; Stop at 07:43; Status DC Iohexol 100 ml 100 ml STK-MED ONCE .ROUTE ; Start 09/25/16 at 07:58; Stop at 07:59; Status DC Heparin Sodium/ Sodium Chloride 500 ml @ As Directed STK-MED ONCE .ROUTE ; Start 09/25/16 at 07:59; Stop 09/25/16 at 08:00; Status DC Phenylephrine HCl 1 mg STK-MED ONCE IV ; Start 09/25/16 at 08:14; Stop 09/25/16 at 08:15; Status DC Ondansetron HCl (Zofran) 4 mg STK-MED ONCE .ROUTE ; Start 09/25/16 at 08:21; Stop 09/25/16 at 08:22; Status DC Fentanyl Citrate (Fentanyl 5ml Vial) 250 mcg STK-MED ONCE .ROUTE ; Start at 08:36; Stop 09/25/16 at 08:37; Status DC Rocuronium Hooper (Zemuron) 100 mg STK-MED ONCE .ROUTE ; Start 09/25/16 at 08: 36; Stop 09/25/16 at 08:37; Status DC Desflurane (Suprane) 90 ml STK-MED ONCE IH ; Start 09/25/16 at 08:36; Stop 09/25 at 08:37; Status DC Ephedrine Sulfate 50 mg 50 mg STK-MED ONCE IV ; Start 09/25/16 at 08:37; Stop at 08:38; Status DC Vancomycin HCl/ Sodium Chloride (Iv Sodium Chloride 0.9% 250ml) 250 ml @ 250 mls/hr 1X ONCE IV Last administered on 09/25/16 09:00; Start 09/25/16 at 09: 00; Stop 09/25/16 at 09:59; Status DC Lidocaine HCl 100 mg STK-MED ONCE .ROUTE ; Start 09/25/16 at 08:37; Stop at 08:38; Status DC Phenylephrine HCl 1 mg STK-MED ONCE IV ; Start 09/25/16 at 08:37; Stop 09/25/16 at 08:38; Status DC Ondansetron HCl (Zofran) 4 mg PRN Q6HRS PRN IV Nausea; Start 09/25/16 at 08:45 ; Stop 09/25/16 at 21:00; Status DC Fentanyl Citrate (Fentanyl 2ml Vial) 25 mcg PRN Q5MIN PRN IV MILD PAIN; Start 09/25/16 at 08:45; Stop 09/25/16 at 21:00; Status DC Fentanyl Citrate (Fentanyl 2ml Vial) 50 mcg PRN Q5MIN PRN IV MODERATE PAIN Last administered on 09/25/16t 17:19; Start 09/25/16 at 08:45; Stop 09/25/16 at 21:00; Status DC Morphine Sulfate 1 mg 1 mg PRN Q10MIN PRN IV SEVERE PAIN; Start 09/25/16 at 08: 45; Stop 09/25/16 at 19:32; Status DC Lactated Ringer's (Iv Lactated Ringers) 1,000 ml @ 30 mls/hr Q24H IV ; Start at 09:00; Stop 09/25/16 at 21:00; Status DC Lidocaine HCl 2 ml 1X PRN PRN ID IV START; Start 09/25/16 at 08:45; Stop at 21:00; Status DC Hydromorphone HCl (Dilaudid) 0.5 mg PRN Q10MIN PRN IV SEV PAIN,Second choice; Start 09/25/16 at 08:45; Stop 09/25/16 at 19:32; Status DC Prochlorperazine Edisylate (Compazine) 5 mg PACU PRN PRN IV NAUSEA Last administered on 09/25/16 13:00; Start 09/25/16 at 08:45; Stop 09/25/16 at 21:00 ; Status DC Ondansetron HCl (Zofran) 4 mg STK-MED ONCE .ROUTE ; Start 09/25/16 at 08:44; Stop 09/25/16 at 08:47; Status DC Heparin Sodium/ Sodium Chloride 1,000 unit 1X ONCE IART Last administered on 09:30; Start 09/25/16 at 09:30; Stop 09/25/16 at 09:31; Status DC Lidocaine HCl 20 ml 1X ONCE IJ Last administered on 09/25/16 09:30; Start at 09:30; Stop 09/25/16 at 09:31; Status DC Ondansetron HCl (Zofran) 4 mg 1X ONCE IV Last administered on 09/25/16 09:30 ; Start 09/25/16 at 09:30; Stop 09/25/16 at 09:31; Status DC Phenylephrine HCl (Iraj-Synephrine Inj) 10 mg STK-MED ONCE .ROUTE ; Start at 09:56; Stop 09/25/16 at 09:57; Status DC Phenylephrine HCl (Iraj-Synephrine Inj) 10 mg STK-MED ONCE .ROUTE ; Start at 09:56; Stop 09/25/16 at 09:57; Status DC Glycopyrrolate (Robinul) 1 mg STK-MED ONCE .ROUTE ; Start 09/25/16 at 10:06; Stop 09/25/16 at 10:07; Status DC Neostigmine Methylsulfate 5 mg STK-MED ONCE .ROUTE ; Start 09/25/16 at 10:07; Stop 09/25/16 at 10:08; Status DC Lidocaine HCl 100 mg STK-MED ONCE .ROUTE ; Start 09/25/16 at 10:24; Stop at 10:25; Status DC Isoflurane (Isoflurane) 90 ml STK-MED ONCE IH ; Start 09/25/16 at 10:24; Stop at 10:25; Status DC Sugammadex Sodium (Bridion) 200 mg STK-MED ONCE IVP ; Start 09/25/16 at 10:53; Stop 09/25/16 at 10:54; Status DC Famotidine (Pepcid) 20 mg BID PO Last administered on 09/27/16 08:44; Start at 21:00; Stop 09/27/16 at 13:58; Status DC Sodium Chloride (Normal Saline Flush) 3 ml QSHIFT PRN IV AFTER MEDS AND BLOOD DRAWS; Start 09/25/16 at 11:30 Oxycodone/ Acetaminophen (Percocet 5/325) 1 tab PRN Q4HRS PRN PO MILD PAIN, 1ST CHOICE Last administered on 09/25/16 17:20; Start 09/25/16 at 11:30; Stop 09/25/16 at 19:33; Status DC Oxycodone/ Acetaminophen (Percocet 5/325) 2 tab PRN Q4HRS PRN PO MODERATE PAIN , SEVERE PAIN Last administered on 09/30/16 06:20; Start 09/25/16 at 11:30 Acetaminophen (Tylenol) 650 mg PRN Q6HRS PRN PO MILD PAIN / TEMP; Start at 11:30 Ondansetron HCl (Zofran) 4 mg PRN Q6HRS PRN IV NAUESA, 1ST CHOICE Last administered on 09/30/16 12:36; Start 09/25/16 at 11:30 Metoclopramide HCl (Reglan) 5 mg PRN Q6HRS PRN IV Nausea/Vomiting, 2nd Choice; Start 09/25/16 at 11:30 Senna/Docusate Sodium 1 tab 1 tab BID PO Last administered on 09/29/16 21:19; Start 09/25/16 at 21:00 Cefazolin Sodium/ Sodium Chloride (Ancef/Iv Sodium Chloride 0.9% 100ml) 100 ml @ 200 mls/hr Q6H IV Last administered on 09/25/16 23:43; Start 09/25/16 at 12 :00; Stop 09/26/16 at 00:29; Status DC Hydromorphone HCl (Dilaudid) 0.5 mg PRN Q1HR PRN IV SEVERE PAIN Last administered on 09/26/16 15:18; Start 09/25/16 at 19:45 Oxycodone/ Acetaminophen (Percocet 5/325) 1 tab PRN Q4HRS PRN PO PAIN, 1ST CHOICE Last administered on 09/26/16 04:04; Start 09/25/16 at 19:30 Colchicine 0.6 mg 0.6 mg DAILY PO Last administered on 09/30/16 10:09; Start 09/25/16 at 20:00 Sodium Chloride (Iv Sodium Chloride 0.9% 1000ml Bag) 1,000 ml @ 125 mls/hr 1X ONCE IV Last administered on 09/25/16 20:03; Start 09/25/16 at 20:00; Stop at 03:59; Status DC Furosemide (Lasix) 20 mg [id number] PO Last administered on 09/27/16 16:58; Start 09/27/16 at 18:00; Stop 09/28/16 at 00:18; Status DC Furosemide (Lasix) 20 mg [id number] PO Last administered on 09/29/16 08:29; Start 09/28/16 at 09:00; Stop 09/29/16 at 11:04; Status DC Morphine Sulfate 2 mg 1X ONCE IV Last administered on 09/28/16 10:39; Start 09/28/16 at 10:30; Stop 09/28/16 at 10:33; Status DC Morphine Sulfate 2 mg 1X ONCE IV Last administered on 09/28/16t 12:24; Start 09/28/16 at 11:45; Stop 09/28/16 at 11:46; Status DC Furosemide (Lasix) 40 mg DAILY PO Last administered on 09/30/16t 10:09; Start 09/30/16 at 09:00; Stop 09/30/16 at 13:16; Status DC Furosemide (Lasix) 20 mg [id number] PO ; Start 09/29/16 at 14:00; Stop 09/29/16 at 14 :05; Status DC Furosemide (Lasix) 20 mg [id number] PO ; Start 09/29/16 at 14:00 Sulfur Hexafluoride Microspheres (Lumason) 25 mg STK-MED ONCE IVP ; Start at 09:20; Stop 09/30/16 at 09:21; Status DC Sulfur Hexafluoride Microspheres (Lumason) 25 mg 1X ONCE IVP ; Start 09/30/16 at 10:00; Stop 09/30/16 at 10:02; Status DC Active Scripts Active Aspirin Ec (Aspirin) 325 Mg Tablet.dr 1 Tab PO DAILY Klor-Con M20 (Potassium Chloride) 20 Meq Tab.er.prt 1 Tab PO DAILY Hydrocodone-Apap 5-325 (Hydrocodone Bit/Acetaminophen) 1 Each Tablet 1 Tab PO PRN Q6HRS PRN sig: one or two tabs every 6 hours as needed for pain Mag-Oxide (Magnesium Oxide) 400 Mg Tablet 400 Mg PO BID Furosemide 40 Mg Tablet 40 Mg PO DAILY Amiodarone Hcl 200 Mg Tablet 400 Mg PO BID Reported Metoprolol Tartrate 50 Mg Tablet 1 Tab PO BID Vitals/I & O Vital Sign - Last 24 Hours 09/29/16 09/29/16 09/29/16 09/29/16 14:53 16:32 17:30 19:55 Temp 97.6 97.7 97.6 97.7 Pulse 78 85 Resp 18 20 B/P 92/60 90/70 Pulse Ox 95 95 95 97 O2 Delivery Room Air Room Air Room Air Room Air O2 Flow Rate 3.0 3.0 09/29/16 09/29/16 09/29/16 09/29/16 20:00 21:19 21:20 21:20 Pulse 86 86 Resp 16 B/P 110/79 110/79 O2 Delivery Room Air 09/29/16 09/30/16 09/30/16 09/30/16 23:40 03:15 06:20 07:20 Temp 97.8 97.9 97.8 97.9 Pulse 83 81 Resp B/P 109/61 107/65 Pulse Ox 95 94 O2 Delivery Room Air Room Air 09/30/16 09/30/16 09/30/16 09/30/16 07:58 08:00 10:09 10:11 Temp 98.8 98.8 Pulse 83 87 88 Resp B/P 103/58 103/58 111/72 Pulse Ox 94 O2 Delivery Room Air Room Air 09/30/16 10:50 Temp 97.8 97.8 Pulse 81 Resp 18 B/P 115/74 Pulse Ox 95 O2 Delivery Room Air Intake and Output 09/29/16 09/29/16 09/30/16 15:00 23:00 07:00 Intake Total 480 ml Output Total 300 ml 800 ml Balance -300 ml -320 ml TAISHA EMANUEL MD Sep 30, 2016 13:44
[2016-09-30 14:32] VITALS: BP 111/69
--- NOTE | 2016-09-30 15:48 | CARD ---
APPROVED REPORT EXAM: Two-dimensional and M-mode echocardiogram with Doppler, color Doppler with contrast. Other Information Quality : Technically Limited Rhythm : NSRTechnically limited study due to body habitus and CABG. INDICATION Pericardial Effusion RV strain Echo Enhancing Agent Indication: Endocardial border delineation Agent/Amount Used: Lumason 4mL 2D DIMENSIONS RVDd3.6 (2.9-3.5cm)Left Atrium(2D)3.3 (1.6-4.0cm) IVSd1.0 (0.7-1.1cm)Aortic Root(2D)4.0 (2.0-3.7cm) LVDd4.8 (3.9-5.9cm)LVOT Diameter2.5 (1.8-2.4cm) PWd1.0 (0.7-1.1cm)LVDs3.0 (2.5-4.0cm) FS (%) 30.5 %SV72.4 ml LVEF(%)60.5 (>50%) Aortic Valve AoV Peak Herb.82.1cm/sAoV VTI14.3cm AO Peak GR.2.7mmHgLVOT Peak Herb.82.9cm/s LVOT VTI 15.60cmAO Mean GR.2mmHg JAZZY (VMAX)5.90tw9YMB (VTI)5.52cm2 Mitral Valve MV E Febsowwk04.0cm/sMV DECEL [id number] MV A Dljfcxtd59.7cm/sMV E Mean Gr.2mmHg MV GNV00toD/A Ratio1.1 MVA (PHT)3.85cm2 TDI E/Lateral E'10.4E/Medial E'8.5 Pulmonary Valve PV Peak Kizbrqmu74.9cm/sPV Peak Grad.3mmHg RVOT VTI17.1cm Tricuspid Valve TR P. [id number]/sRAP [id number] TR Peak Gr.[id number] LEFT VENTRICLE The left ventricle is normal size. There is normal left ventricular wall thickness. Left ventricle sy stolic function is normal. The Ejection Fraction is 55-60%. There is normal LV segmental wall motion. The left ventricular diastolic function and filling is normal for age. RIGHT VENTRICLE The right ventricle is normal size. The right ventricular systolic function is normal. ATRIA The left atrium size is normal. The right atrium size is normal. The interatrial septum is intact wit h no evidence for an atrial septal defect or patent foramen ovale as noted on 2-D or Doppler imaging. AORTIC VALVE The aortic valve is normal in structure and function. The aortic valve is trileaflet. Doppler and Col or Flow revealed no significant aortic regurgitation. There is no significant aortic valvular stenosi s. MITRAL VALVE The mitral valve is normal in structure and function. There is no mitral valve stenosis. Doppler and Color Flow revealed no mitral valve regurgitation noted. TRICUSPID VALVE The tricuspid valve is not well visualized. Doppler and Color Flow revealed mild tricuspid regurgitat ion. The PA pressure was estimated at 34 mmHg. There is no tricuspid valve stenosis. PULMONIC VALVE The pulmonic valve is not well visualized. Doppler and Color Flow revealed no pulmonic valvular regur gitation. There is no pulmonic valvular stenosis. GREAT VESSELS The aortic root is borderline dilated. The ascending aorta is normal in size. The IVC is normal in si ze and collapses >50% with inspiration. PERICARDIAL EFFUSION There is no evidence of significant pericardial effusion. Critical Notification Critical Value: No <Conclusion> Left ventricle systolic function is normal. The Ejection Fraction is 55-60%. There is normal LV segmental wall motion. There is no evidence of significant pericardial effusion.
--- NOTE | 2016-09-30 16:03 | RAD ---
Chest, 2 views, 09/30/2016: History: Follow-up chest tube removal Comparison is made to a study from 09/26/2016. The left-sided chest drain has been removed. The heart is mildly enlarged. There is tortuosity of the thoracic aorta. The pulmonary vascularity is normal. There is minimal atelectasis/infiltrate in the left base laterally corresponding to the previous chest tube location. The lungs are otherwise clear. There is no evidence of pneumothorax or significant pleural fluid. IMPRESSION: 1. Cardiomegaly. 2. Minimal left basilar atelectasis/infiltrate.
--- NOTE | 2016-09-30 16:21 | PDOC ---
Progress Note Subjective Subjective Feels much better today. Vitals, labs and chest x-ray all look great. He had a CT of the chest yesterday which also looked really good without evidence of a pericardial or pleural effusion. With the chest tube clamped for 24 hours he had a transthoracic echo which again did not demonstrate any pericardial effusion. ROS ROS No nausea No vomiting No pain No rash Vital Sign Vital Signs Vital Signs Date Time Temp Pulse Resp B/P Pulse Ox O2 Delivery O2 Flow Rate FiO2 09/30/16 15:24 20 Room Air 09/30/16 14:32 98.2 83 111/69 94 98.2 09/29/16 17:30 3.0 Physical Exam PHYSICAL EXAM GENERAL: NAD, Alert HEENT: PERRL, OC/OP NECK: Supple, no JVD, no LN LUNGS: Clear HEART: S1S2, no gallop, no murmur ABD: Soft, NT, no organomegaly, no rebound EXT: No edema, no cyanosis [employer]: Alert, oriented x 3, no focal neurologic deficit SKIN: No rash IV: ok Labs Lab Laboratory Tests Test 09/30/16 05:04 White Blood Count 8.9x10^3/uL (4.0-11.0) Red Blood Count 3.30x10^6/uL (4.30-5.70) Hemoglobin 9.7g/dL (13.0-17.5) Hematocrit 29.5% (39.0-53.0) Mean Corpuscular Volume 90fL (79-100) Mean Corpuscular Hemoglobin 29pg (25-35) Mean Corpuscular Hemoglobin Concent 33g/dL (31-37) Red Cell Distribution Width 14.9% (11.5-14.5) Platelet Count 545x10^3/uL (140-400) Neutrophils (%) (Auto) 63% (31-73) Lymphocytes (%) (Auto) 22% (24-48) Monocytes (%) (Auto) 10% (0-9) Eosinophils (%) (Auto) 4% (0-3) Basophils (%) (Auto) 1% (0-3) Neutrophils # (Auto) 5.6x10^3uL (1.8-7.7) Lymphocytes # (Auto) 2.0x10^3/uL (1.0-4.8) Monocytes # (Auto) 0.9x10^3/uL (0.0-1.1) Eosinophils # (Auto) 0.4x10^3/uL (0.0-0.7) Basophils # (Auto) 0.1x10^3/uL (0.0-0.2) Sodium Level 140mmol/L (136-145) Potassium Level 4.9mmol/L (3.5-5.1) Chloride Level 104mmol/L (98-107) Carbon Dioxide Level 26mmol/L (21-32) Anion Gap 10 (6-14) Blood Urea Nitrogen 13mg/dL (8-26) Creatinine 1.2mg/dL (0.7-1.3) Estimated GFR (Cockcroft-Gault) 62.0 Glucose Level 88mg/dL (70-99) Calcium Level 8.8mg/dL (8.5-10.1) Total Bilirubin 0.4mg/dL (0.2-1.0) Direct Bilirubin 0.1mg/dL (0.0-0.2) Aspartate Amino Transf (AST/SGOT) 22U/L (15-37) Alanine Aminotransferase (ALT/SGPT) 79U/L (16-63) Alkaline Phosphatase 184U/L (46-116) Total Protein 6.4g/dL (6.4-8.2) Albumin 2.5g/dL (3.4-5.0) Objective Assessment POD#5, s/p L VATS pericardial window with drainage of 1.2 L of fluid. He underwent an ascending aortic aneurysm replacement 3 weeks ago. Transthoracic echo with the chest tube clamped didn't show a recurrent pericardial effusion. Plan Plan of Care D/c chest tube Ambulation D/c home tomorrow FRANKY AMEZCUA MD Sep 30, 2016 16:21
[2016-09-30 19:35] VITALS: BP 105/65
[2016-09-30 23:15] VITALS: BP 100/57
[2016-10-01 02:10] VITALS: BP 92/54
[2016-10-01 03:15] VITALS: BP 109/58
[2016-10-01] MEDS: OXYCODONE/APAP 5/325 TABLET. PO PRN (06:46)
[2016-10-01 07:15] VITALS: BP 98/69
[2016-10-01] MEDS: LIDOCAINE (700MG/PATCH) PATCH. TD SCH (09:00)
[2016-10-01] MEDS: COLCHICINE 0.6 MG TABLET PO SCH (09:01)
[2016-10-01] MEDS: FUROSEMIDE 20 MG TABLET PO SCH ×2 (09:01→14:00)
[2016-10-01] MEDS: SENNOSIDES/DOCUSATE 8.6/50MG TABLET. PO SCH (09:02)
[2016-10-01] MEDS: AMIODARONE HCL 200 MG TABLET PO SCH (09:02)
[2016-10-01] MEDS: METOPROLOL TART IMMED RELEASE 25 MG TABLET PO SCH (09:02)
[2016-10-01 11:02] VITALS: BP 105/64
--- NOTE | 2016-10-01 11:32 | PDOC ---
JAMINBLAS M VP [employer] 10/01/16 1131: CARDIO Progress Notes Date and Time Date of Service 10/01/2016 Time of Evaluation 1129 Subjective Subjective: No Chest Pain, No shortness of breath, No Palpitations, No Dizziness Vitals Vitals Vital Signs Date Time Temp Pulse Resp B/P Pulse Ox O2 Delivery O2 Flow Rate FiO2 10/01/16 11:02 97.6 83 20 105/64 97 Room Air 97.6 10/01/16 08:00 2.0 Weight Weight [ ] Input and Output Intake and Output Intake and Output 10/01/16 07:00 Intake Total 480 ml Output Total 100 ml Balance 380 ml Intake Oral 480 ml Drainage Total 100 ml # Voids 4 Microbiology Micro Microbiology 09/29/16 Blood Culture - Preliminary, Resulted NO GROWTH AFTER 1 DAY 09/29/16 Urine Culture - Final, Complete 09/29/16 Urine Culture Result 1 (NUHA) - Final, Complete 09/29/16 Antimicrobic Susceptibility - Final, Complete Review of Systems Constitutional: yes: alert, oriented, weakness Ears/Nose/Throat: Yes: no symptom reported Pulmonary: Yes no symptom reported Gastrointestional: Yes: constipation Musculoskeletal: Yes: muscle stiffness Physical Exam HEENT: Neck Supple W Full Motion Chest: Symmetric, Other (left pleural tube) LUNGS: Other (crackles left base) Heart: S1S2, RRR, no murmurs, other (tele: SR) Abdomen: Soft N/T (obese abdomen) Extremities: No Edema Neurology: alert, oriented, follow commands Assessment Assessment 1. pericardial effusion s/p VATS and pericardial window; POD #6 per CTS on colchicine for pericarditis no evidence of recurrent pericardial effusion on echo yesterday 2. s/p repair ascending aortic aneurysm on 09/10 3. PAF remains SR on tele; one brief run of PAF during last night rate controlled with beta-blockers anti-arrhythmic = amiodarone hold ASA for now 4. CKD history of renal cancer with previous right nephrectomy 5. HTN controlled with meds Agreeable with discharge f/u with cardiology on 10/18/2016 as scheduled ALIZA PHAM MD 10/01/16 3294: CARDIO Progress Notes Plan Plan Patient seen and examined. Agree with her nurse practitioner noted. No acute events overnight. Doing well status post removal of the chest tube. No significant lower extremity edema. Continue colchicine for long-term prevention of recurrent pericarditis. Supportive care and close follow-up in the outpatient clinic. BLAS NEVILLE APRN Oct 01, 2016 11:31 ALIZA PHAM MD Oct 01, 2016 16:07
[2016-10-01] MEDS ORDERED: AMIO200T2 PO (11:41)
[2016-10-01] MEDS ORDERED: FURO20TA3 PO (11:41)
[2016-10-01] MEDS ORDERED: OXYC1TAB7 PO (11:55)
[2016-10-01] MEDS ORDERED: COLC0.6T34 PO (11:55)
[2016-10-01] MEDS ORDERED: LIDOCAINE 1% 20 ML VIAL. IJ ONE (14:00)
--- NOTE | 2016-10-01 15:27 | PDOC ---
Progress Note Subjective Subjective Doing well, no issues. Pain has nearly resolved. Has some drainage from a port site seroma. Suture placed today. 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 He underwent an ascending aortic aneurysm replacement 3 weeks ago. Doing very well. Had some drainage from a port site seroma which was sutured. Plan Plan of Care D/c home 1 week of po Lasix Continue amiodarone 200 mg twice daily and small dose beta juan josé Follow-up in 3 weeks with chest x-ray beforehand Advised that he can come to clinic after 1 week to have the suture removed FRANKY AMEZCUA MD Oct 01, 2016 15:27
--- NOTE | 2016-10-09 00:20 | DS ---
DATE OF DISCHARGE: 10/01/2016 CHIEF COMPLAINT: Chest pain, shortness of breath. HOSPITAL COURSE: The patient is a 60-year-old gentleman who had undergone ascending aortic aneurysm repair 2 weeks prior to presentation. He was found with massive pericardial effusion. Cardiology, Dr. Perez, as well as his cardiovascular surgeon, Dr. Roberson, were consulted. After discussion, patient actually underwent pericardial window placement with drainage of 1200 mL of initial fluid with chest tube placement on the left. The patient tolerated the procedure without any complications. Pain control improved with time, mainly located at site of chest tube. This was discontinued once drainage fell sufficiently. He tolerated discontinuation; no significant pneumothorax was noted that the patient was ultimately discharged. PHYSICAL EXAMINATION: VITAL SIGNS: On discharge date show a blood pressure of 105/64, heart rate of 86, respiratory rate of 20. No fevers. GENERAL: This is an obese gentleman, alert and oriented, no acute distress. LUNGS: Clear. HEART: Has regular rate and rhythm. Midline incision is well healing. Left-sided CT site clean and dry without any drainage. ABDOMEN: Obese, organs could not be palpated. EXTREMITIES: Show no edema. DISCHARGE DATE: 10/01/2016. DISCHARGE DIAGNOSIS: Postsurgical pericardial effusion status post pericardial window placement on 09/25 with chest tube placement. DISCHARGE DISPOSITION: To home with services. DISCHARGE CONDITION: Improved. DISCHARGE MEDICATIONS: Please refer to MAR. DISCHARGE INSTRUCTIONS: The patient will follow up with PCP as well as Dr. Roberson as previously arranged. Greater than 30 minutes spent in arranging discharge. ISIDRO SOLIS MD DR: MARIKA/nts JOB#: [id number] / [id number] SHARRON Santana APRN
== END 2016-10-01 15:30 | disposition home or self-care (01) | DRG 919 ==
LOC: ER 12:16 → 2 NORTH 15:53 → 1 WEST ICU 09-25 08:46 → 2 NORTH 09-25 11:59
PROVIDERS: ADMIT Internal Medicine Hematology & Oncology; ATTEND Internal Medicine Hematology & Oncology
PROC: B246ZZ4 Ultrasonography of Right and Left Heart, Transesophageal (ICD-10-PCS; 2016-09-25)
PROC: 0W9B30Z Drainage of Left Pleural Cavity with Drainage Device, Percutaneous Approach (ICD-10-PCS; 2016-09-25)
PROC: 0W9D4ZZ Drainage of Pericardial Cavity, Percutaneous Endoscopic Approach (ICD-10-PCS; principal; 2016-09-25 10:00)
DX: T81.89XA Other complications of procedures, not elsewhere classified, initial encounter (principal); N17.0 Acute kidney failure with tubular necrosis; I31.3 Pericardial effusion (noninflammatory); Z68.41 Body mass index [BMI] 40.0-44.9, adult; I13.0 Hypertensive heart and chronic kidney disease with heart failure and stage 1 through stage 4 chronic kidney disease, or unspecified chronic kidney disease; J98.11 Atelectasis; D72.829 Elevated white blood cell count, unspecified; E66.01 Morbid (severe) obesity due to excess calories; I48.0 Paroxysmal atrial fibrillation; K86.9 Disease of pancreas, unspecified; M10.9 Gout, unspecified; I50.9 Heart failure, unspecified; N18.3 Chronic kidney disease, stage 3 (moderate); Z82.49 Family history of ischemic heart disease and other diseases of the circulatory system; Z85.528 Personal history of other malignant neoplasm of kidney; Z87.891 Personal history of nicotine dependence; Z90.49 Acquired absence of other specified parts of digestive tract; Z90.5 Acquired absence of kidney; Z95.1 Presence of aortocoronary bypass graft; Z68.39 Body mass index [BMI] 39.0-39.9, adult
CPT/HCPCS: 99285; C8929; 36415; 71010; 71020; 71250; 80048; 80053; 80076; 83605; 83735; 83880; 84484; 85007; 85027; 85610; 85730; 87040; 87086; 87186; 87804; 88305; 93005; 93308; 93312; 96361; 96374; 96375; 96376; C1782; J0690; J0780; J1170; J2270; J2370; J2405; J2710; J3010; J3370; J3490; J7030; J7050; 97116; Q9950

== ENCOUNTER → 2016-10-18 | Outpatient (CLI) | payer OTHER ==
[2016-10-01 11:02] VITALS: BP 105/64
[~2016-10-18] MED LIST changes: +COLC0.6T34 PO; +FURO20TA3 PO; +OXYC1TAB7 PO
--- NOTE | 2016-10-18 12:04 | RAD ---
Exam: PA and lateral chest radiograph History: Status post aneurysm surgery September 10. Comparison: 09/30/2016. Findings: Cardiac silhouette remains mildly enlarged. Tortuosity of aorta is again seen. Median sternotomy wires are present. No pneumothorax or pleural effusion is appreciated. Mild density involving the lateral lower left lung field is unchanged, likely small focus of scarring. Impression: No acute cardiopulmonary process.
== END | disposition home or self-care (01) ==
LOC: RAD 11:25
PROVIDERS: ATTEND Thoracic Surgery (Cardiothoracic Vascular Surgery)
DX: I71.2 Thoracic aortic aneurysm, without rupture (principal)
CPT/HCPCS: 71020

== ENCOUNTER → 2016-10-18 | Outpatient (CLI) | payer OTHER ==
[2016-10-01 11:02] VITALS: BP 105/64
[2016-10-18 11:42] LABS: BASO # 0.1 x10^3/uL (0.0-0.2); BASO % 1 % (0-3); EOS % 5 % (0-3); HEMATOCRIT 35.6 % (39.0-53.0); HEMOGLOBIN 11.3 g/dL (13.0-17.5); LYMPH # 2.8 x10^3/uL (1.0-4.8); LYMPH % 28 % (24-48); MEAN CORPUSCULAR HEMOGLOBIN 28 pg (25-35); MEAN CORPUSCULAR HGB CONC 32 g/dL (31-37); MEAN CORPUSCULAR VOLUME 87 fL (79-100); MONO % 7 % (0-9); NEUT % 60 % (31-73); PLATELET COUNT 449 x10^3/uL (140-400); RED CELL DISTRIBUTION WIDTH 14.9 % (11.5-14.5); WHITE BLOOD COUNT 10.2 x10^3/uL (4.0-11.0)
[2016-10-18 12:03] LABS: ALBUMIN 3.3 g/dL (3.4-5.0); ALBUMIN/GLOBULIN RATIO 0.6 (1.0-1.7); CALCIUM 9.5 mg/dL (8.5-10.1); CREATININE 1.4 mg/dL (0.7-1.3); GFR 51.9; POTASSIUM 4.1 mmol/L (3.5-5.1); TOTAL BILIRUBIN 0.5 mg/dL (0.2-1.0); TOTAL PROTEIN 8.9 g/dL (6.4-8.2)
== END | disposition home or self-care (01) ==
LOC: LAB 11:17
PROVIDERS: ATTEND Internal Medicine Cardiovascular Disease
DX: I31.9 Disease of pericardium, unspecified (principal)
CPT/HCPCS: 36415; 80053; 85027

== ENCOUNTER → 2017-04-21 | Outpatient (CLI) | payer OTHER ==
[~2017-04-21] MED LIST changes: -HYDR-2666 PO; +HYDR-2758 PO; +HYDR12.53 PO; +LISI10TA2 PO
--- NOTE | 2017-04-21 17:06 | PAIN ---
DATE OF SERVICE: 04/21/2017 INITIAL CONSULTATION FOR PAIN CLINIC CHIEF COMPLAINT: Neck and right upper extremity pain. HISTORY OF PRESENT ILLNESS: This is a 61-year-old male who presents with history of pain in the base of the neck and right shoulder and upper extremity since about 08/2016. The patient reports that it occurred gradually, but has an increase in pain without the result of any specific injury or action he is aware of, but has significant pain radiating to the base of the neck, bilateral shoulders, right upper extremity mostly in the anterior aspect of the biceps and into the forearm anteriorly, also some posteriorly and into the hand and fingers with numbness in the thumb, first and second fingers on the right side that is also aching, painful numbness. The patient reports it is constant, sharp, stabbing, throbbing, shooting with tingling and numbness, changes during the day, worse with activity, worse with raising his arms over his head, using his right upper extremity for repetitive motions, some pain in the left arm as well, but only very intermittent, mostly on the right side. The patient reports he has been doing some stretching and strengthening exercises on his own. He has had chiropractic treatment, which did not significantly decrease the pain in the past. The patient has had no other formal therapies at this time. The patient reports it occasionally wakes him from sleep at night, maybe once. Did not affect his bowel or bladder control and did not affect his ability to walk. The patient rates his disability rate from 0-10, 10 being the worst, as a 7 with family and home responsibilities and social activity as well as sexual behavior, 6 with recreation, 8 with occupation, 5 with self care and life support activities. The patient did have an MRI scan of the cervical spine showing moderate multilevel neural foraminal narrowing, right greater than left, mostly C4-C5, C5-C6 as well as C6-C7 with mild bilateral neural foraminal narrowing, also posterior disk bulging C4-C5, C3-C4 and C5-C6, again worse on the right side with mild ventral effacement of thecal sac at C4-C5 and bilateral neural foraminal narrowing at C5-C6, bilateral C6-C7. PAST MEDICAL HISTORY: Significant for hypertension; arthritis; obesity; atrial fibrillation; cardiac aneurysm; cigarette smoking, quit 20 years ago, 2 packs a day prior to that, right kidney cancer with nephrectomy on the right side. OTHER SURGERIES: Include cholecystectomy in 2015 and cardiac aneurysm repair. CURRENT MEDICATIONS: Include metoprolol, colchicine, lisinopril, hydrochlorothiazide, Lasix and amiodarone. ALLERGIES: The patient has no known drug allergies. FAMILY HISTORY: Significant for hypertension and cancer. SOCIAL HISTORY: The patient does not smoke, quit many years ago. 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 REVIEW OF SYSTEMS: The patient's review of systems is positive for those items mentioned in history of present illness. All systems reviewed and otherwise negative. It is complete, full and well documented on the patient's chart. PHYSICAL EXAMINATION: VITAL SIGNS: Today, his blood pressure 143/86, pulse 67, respirations 18, temperature is 97.8 degrees Fahrenheit, height is 5 feet 10 inches, weight is 276 pounds. GENERAL: The patient is awake, alert, oriented, appropriate, is a very pleasant demeanor. The patient accompanied by his spouse. HEENT: Shows normocephalic, atraumatic. Extraocular movements are intact, symmetrical. Oral cavity, mucous membranes are moist and pink. Dentition is intact. NECK: Shows anterior throat supple without palpable lymphadenopathy noted. Swallow reflex is symmetrical. CHEST: Normal on inspection. Breath sounds are clear to auscultation bilaterally. HEART: Shows S1 and S2 clear. ABDOMEN: Obese, soft, nontender, nondistended. No palpable organomegaly, no rebound or guarding demonstrated. MUSCULOSKELETAL: Back shows spine grossly in the midline. Normal appearing cervical lordotic curvature, thoracic kyphotic curvature and lumbar lordotic curvature. Cervical paraspinous muscle shows symmetrical on inspection, with palpation shows some moderate tenderness throughout the middle and lower distribution of paraspinous muscles posteriorly into the superomedial trapezius, but worse on the right than the left with more tenderness, no asymmetry; however, no trigger points, no radiation of pain. The patient shows full rotation and motion of the cervical spine, both past 45 degrees right and left as well as full extension, full forward flexion without significant increase in pain noted. The patient's upper extremities show deep tendon reflexes at 2+ in the biceps and triceps tendons. Motor exam is strong with professor of languages strength 5/5 as is biceps and triceps flexion 5/5 and equal bilaterally. Peripheral pulses are 2+ in the radial distribution bilaterally. No peripheral edema is noted. No clubbing, no cyanosis. Upper extremities are warm and dry to the touch, equal in color and appearance. Shoulder shrug is strong and intact without loss of strength on resistance as is abduction of shoulders at 90 degrees without loss of strength on resistance without significant pain reported. IMPRESSION: 1. This is a 61-year-old male with approximately 8-month history of pain in the base of the neck bilaterally with radiation to the right upper extremity in a radicular fashion following a C5-C6, C6-C7 dermatomal pattern on the right side. 2. MRI scan of the cervical spine as noted. 3. Arthritis. 4. Hypertension. 5. History of renal cell cancer. PLAN: Options were discussed with the patient including conservative medical management, physical therapy, interventional techniques and he is doing some therapy on his own with stretching and strengthening exercises as well as chiropractic. Would like to pursue interventional techniques. We discussed a cervical epidural steroid injection using description as well as anatomical models to describe the procedure. The patient will wait for preauthorization with his insurance provider and we will have him return once this is authorized for a cervical epidural steroid injection at that time. The patient will continue to do his stretching and strengthening exercises and increase his activity as tolerated as he has been doing and will have him back as scheduled. ESTHELA HANKS MD DR: KRUPA/cecil JOB#: [id number] / [id number]
== END | disposition home or self-care (01) ==
LOC: PNCL 12:58
PROVIDERS: ATTEND Anesthesiology
DX: I48.91 Unspecified atrial fibrillation (principal); I10 Essential (primary) hypertension; M25.512 Pain in left shoulder; M25.511 Pain in right shoulder; M79.601 Pain in right arm; I25.3 Aneurysm of heart; E66.9 Obesity, unspecified; R20.0 Anesthesia of skin; Z85.528 Personal history of other malignant neoplasm of kidney; Z90.49 Acquired absence of other specified parts of digestive tract
CPT/HCPCS: 99214

== ENCOUNTER → 2017-05-09 | Outpatient (CLI) | payer OTHER ==
[~2017-05-09] MED LIST changes: +IOHEXOL 180 MG/ML 10 ML VIAL. ONE; +methylPREDNISolone ACETATE 40 MG/ML VIAL. ONE; +methylPREDNISolone ACETATE 80 MG/ML VIAL. ONE
--- NOTE | 2017-05-09 12:29 | PAIN ---
DATE OF SERVICE: 05/09/2017 DIAGNOSES: Cervical radiculopathy with cervical degenerative disk disease and cervical spinal stenosis. HISTORY OF PRESENT ILLNESS: The patient is a 61-year-old male who returns for followup status post initial evaluation and preauthorization for cervical epidural steroid injection. The patient has obtained this now and returns with still significant pain in the base of the neck and upper extremities, right greater than left. No significant changes. No new motor or sensory deficits or other complaints. The patient reports still pain base of the neck, shoulders, again somewhat worse on the right side, rates a 8 on a scale of 10 at its worst, 6 on average and a 5 on a scale of 10 at its least, is a 5 today. The patient reports tingling, aching, shooting, dull, constant, radiating pain, mostly in the right side, again with some numbness in the right hand. The patient reports no new motor or sensory deficits or other complaints. PHYSICAL EXAMINATION: VITAL SIGNS: The patient's blood pressure is 139/95, pulse 69, respirations 18, temperature 97.5 degrees Fahrenheit, height is 5 feet 10 inches, weighs 273 pounds. GENERAL: The patient is awake, alert, oriented, appropriate, very pleasant demeanor. HEENT: Head shows normocephalic, atraumatic. Extraocular movements are intact, symmetrical. Oral cavity, mucous membranes are moist and pink. Dentition is intact. NECK: Shows anterior throat supple without palpable lymphadenopathy noted. Swallow reflex is symmetrical. CHEST: Shows normal with inspection. Breath sounds clear to auscultation bilaterally. HEART: Shows S1 and S2 clear. No murmurs auscultated. Well healed surgical scars noted over the sternum. ABDOMEN: Obese, soft, nontender, nondistended. No palpable organomegaly is noted. BACK: Shows spine grossly midline. Cervical paraspinous musculature shows some moderate tenderness to palpation, but only diffusely in the middle and inferior aspects of the cervical distribution in superior medial trapezius, worse on the right than the left, but again with no trigger points, no asymmetry, no radiation of pain. Neck shows good rotational motion both laterally as well as extension and flexion without significant pain reported. EXTREMITIES: Upper extremities show deep tendon reflexes at 2+ in the biceps and triceps tendons. Motor exam is strong with 5/5 production planner strength, biceps and triceps flexion. Options were discussed with the patient and the patient's old chart was reviewed as his current medication regimen updated. Current review of systems is updated today as well. We will proceed with a cervical epidural steroid injection today with fluoroscopic guidance. Risks were again discussed including, but not limited to bleeding, infection, possibility of epidural hematoma, subsequent neurologic compromise, dural puncture, headaches, spinal cord and/or nerve damage, side effects of steroid medication and poor results regarding pain control. The patient understands and wishes to proceed. The patient will return to clinic in approximately 2 weeks for followup, was counseled on return appointment, activity level and side effects to be aware of. DIAGNOSIS: Cervical radiculopathy with cervical degenerative disk disease and cervical spinal stenosis. PROCEDURE: Cervical epidural steroid injection, translaminar approach C6-C7 level using C-arm fluoroscopic guidance under sterile prep and drape using local anesthetic. MEDICATION INJECTED: A total of 120 mg Depo-Medrol plus 5 mL preservative normal saline and 2 mL of Isovue for contrast. CONDITION AT DISCHARGE: Stable. The patient tolerated procedure well, had no complications. ESTHELA HANKS MD DR: KRUPA/cecil JOB#: [id number] / [id number]
== END | disposition home or self-care (01) ==
LOC: PNCL 08:59
PROVIDERS: ATTEND Anesthesiology
DX: M50.123 Cervical disc disorder at C6-C7 level with radiculopathy (principal); M48.02 Spinal stenosis, cervical region; I25.10 Atherosclerotic heart disease of native coronary artery without angina pectoris; I48.91 Unspecified atrial fibrillation; J44.9 Chronic obstructive pulmonary disease, unspecified; Z87.891 Personal history of nicotine dependence; Z72.89 Other problems related to lifestyle
CPT/HCPCS: 62321; J1030; J1040

== ENCOUNTER → 2017-08-28 | Outpatient (CLI) | payer OTHER | END | disposition home or self-care (01) | LOC: ECHO 09:32 | DX: I48.91 Unspecified atrial fibrillation (principal); I71.2 Thoracic aortic aneurysm, without rupture; R07.9 Chest pain, unspecified; R05 Cough | CPT/HCPCS: 71046; 93306 ==

== ENCOUNTER → 2020-11-20 | Outpatient (CLI) | payer OTHER ==
[~2020-11-20] MED LIST changes: -AMIO200T2 PO; +AMIO200T6 PO; +HYDR-2145 PO; -HYDR-2758 PO; +HYDR-2761 PO; -HYDR12.53 PO; +HYDR12.575 PO; -HYDR25TA9 PO; -IOHEXOL 180 MG/ML 10 ML VIAL. ONE; -LISI-338 PO; +LISI-517 PO; +LISI10TA16 PO; -LISI10TA2 PO; -METO50TA2 PO; +METO50TA6 PO; -methylPREDNISolone ACETATE 40 MG/ML VIAL. ONE; -methylPREDNISolone ACETATE 80 MG/ML VIAL. ONE
== END ==
LOC: LAB 13:55
PROVIDERS: ATTEND Internal Medicine Cardiovascular Disease
DX: I48.91 Unspecified atrial fibrillation (principal)
CPT/HCPCS: U0003; U0005

== ENCOUNTER 2020-11-23 12:36 | Day surgery (SDC) | payer OTHER ==
[~2020-11-23 12:36] MED LIST changes: +HYDROmorphone 2 MG/ML VIAL IVP PRN; +IV RINGERS,LACTATED 1000ML 1,000 ML IV SCH; +MORPHINE SULFATE 2 MG/ML VIAL. IVP PRN; +PROCHLORPERAZINE 10 MG/2 ML VIAL. IVP PRN; +fentaNYL PF VIAL 100 MCG/2 ML VIAL IVP PRN
--- NOTE | 2020-11-23 13:21 | EKG ---
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
[2020-11-23 13:49] VITALS: BP 157/92
[2020-11-23 14:03] LABS: PROTHROMBIN TIME PATIENT 16.9 SEC (11.7-14.0)
[2020-11-23] MEDS ORDERED: BENZOCAINE ONE 20% MUCOSAL SPRAY. MM (14:30)
[2020-11-23] MEDS ORDERED: LIDOCAINE 2% VISCOUS 15 ML SOLUTION. SWSW ONE (14:30)
[2020-11-23] MEDS ORDERED: LIDOCAINE 2% TOPICAL JELLY 30GM TUBE. TP ONE (14:30)
[2020-11-23] MEDS ORDERED: LIDOCAINE 2% PF 5 ML VIAL. ONE (14:48)
[2020-11-23] MEDS ORDERED: PROPOFOL 10 MG/ML (20ML) VIAL. IV ONE (14:48)
--- NOTE | 2020-11-23 15:29 | EKG ---
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
[2020-11-23 15:50] VITALS: BP 140/88
--- NOTE | 2020-11-24 08:29 | CARD ---
MR#: [id number] Date of Study: 11/23/2020 Ordering Physician: ALIZA PEREZ, Referring Physician: ALIZA PEREZ, Tech: Dilcia De La Cruz [facility] APPROVED REPORT EXAM: Two-dimensional and M-mode echocardiogram with Doppler and color Doppler. INDICATION Atrial Fibrillation Reason For Test : Rule out Intracardiac Thrombus. PROCEDURE After obtaining informed consent, patient underwent transesophageal echo in the PACU. Type of Sedation : General Anesthesia Sedation was administered by Bhavik Rowan. Sedation was achieved with Propofol 100mcg intravenously. The BEENA was performed without complications. Synchronized Cardioversion attempted: Successful Synchronized Cardioversion acheived with 200 Joules after 1 attempt(s). Rhythm following Synchronized Cardioversion: Normal Sinus Rhythm Throughout the procedure, the blood pressure, pulse oximetry, cardiac rhythm, and rate were monitored . The patient tolerated the procedure without adverse effects. Recovery from general anesthesia was une ventful and vital signs were stable. LEFT VENTRICLE The left ventricle is normal size. There is normal left ventricular wall thickness. The left ventricu lar systolic function is mildly decreased. EF 45% There is mild diffuse global hypokinesis. No left v entricle thrombus noted on this study. There is no ventricular septal defect visualized. There is no left ventricular aneurysm. RIGHT VENTRICLE The right ventricle is normal size. There is normal right ventricular wall thickness. The right ventr icular systolic function is normal. ATRIA The left atrium is mildly dilated. The right atrium size is normal. The interatrial septum is intact with no evidence for an atrial septal defect or patent foramen ovale as noted on 2-D or Doppler imagi ng. There is no thrombus noted in the left atrial appendage. AORTIC VALVE The aortic valve is normal in structure and function. Doppler and Color Flow revealed no significant aortic regurgitation. There is no significant aortic valvular stenosis. MITRAL VALVE The mitral valve is normal in structure and function. There is no evidence of mitral valve prolapse. There is no mitral valve stenosis. Doppler and Color-flow revealed mild mitral regurgitation. TRICUSPID VALVE The tricuspid valve is normal in structure and function. Doppler and Color Flow revealed no tricuspid valve regurgitation noted. There is no tricuspid valve stenosis. PULMONIC VALVE The pulmonary valve is normal in structure and function. Doppler and Color Flow revealed no pulmonic valvular regurgitation. There is no pulmonic valvular stenosis. GREAT VESSELS The aortic root is normal in size. The ascending aorta is dilated and not well visualized. The IVC is normal in size and collapses >50% with inspiration. PERICARDIAL EFFUSION There is no evidence of significant pericardial effusion. <Conclusion> The left ventricular systolic function is mildly decreased. EF 45% There is mild diffuse global hypokinesis. The ascending aorta is dilated and not well visualized. Successful CVN to SR. Signed by : Aliza Perez, Electronically Approved : 11/24/2020 08:28:32
== END 2020-11-23 16:00 | disposition home or self-care (01) ==
LOC: SURG 12:36
PROVIDERS: ATTEND Internal Medicine Cardiovascular Disease
DX: I48.91 Unspecified atrial fibrillation (principal); I34.0 Nonrheumatic mitral (valve) insufficiency; I25.10 Atherosclerotic heart disease of native coronary artery without angina pectoris; I10 Essential (primary) hypertension; E78.00 Pure hypercholesterolemia, unspecified; E66.9 Obesity, unspecified; K21.9 Gastro-esophageal reflux disease without esophagitis; G47.30 Sleep apnea, unspecified; M19.90 Unspecified osteoarthritis, unspecified site; Z90.49 Acquired absence of other specified parts of digestive tract; Z98.890 Other specified postprocedural states; Z79.899 Other long term (current) drug therapy; Z87.891 Personal history of nicotine dependence; Z79.82 Long term (current) use of aspirin; Z82.49 Family history of ischemic heart disease and other diseases of the circulatory system
CPT/HCPCS: 36415; 85610; 92960; 93005; 93312; J2704

== ENCOUNTER 2021-01-08 08:52 | Observation (INO) | payer OTHER ==
[~2021-01-08] VITALS: Ht 177.8 cm; Wt 95.9 kg
[~2021-01-08 08:52] MED LIST changes: -HYDROmorphone 2 MG/ML VIAL IVP PRN; -IV RINGERS,LACTATED 1000ML 1,000 ML IV SCH; -MORPHINE SULFATE 2 MG/ML VIAL. IVP PRN; -PROCHLORPERAZINE 10 MG/2 ML VIAL. IVP PRN; -fentaNYL PF VIAL 100 MCG/2 ML VIAL IVP PRN
[2021-01-08] MEDS ORDERED: 0.9 % SODIUM CHLORIDE 10 ML DISP.SYRIN. IV PRN (10:00)
[2021-01-08 10:45] VITALS: BP 150/114
--- NOTE | 2021-01-08 11:02 | EKG ---
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
[2021-01-08 11:32] LABS: HEMATOCRIT 36.4 % (39.0-53.0); HEMOGLOBIN 12.6 g/dL (13.0-17.5); RED BLOOD COUNT 4.08 x10^6/uL (4.30-5.70); RED CELL DISTRIBUTION WIDTH 15.4 % (11.5-14.5)
[2021-01-08 11:41] LABS: CALCIUM 8.6 mg/dL (8.5-10.1); GFR 75.2; POTASSIUM 3.8 mmol/L (3.5-5.1)
[2021-01-08 11:46] LABS: PROTHROMBIN TIME PATIENT 13.8 SEC (11.7-14.0)
[2021-01-08 11:59] VITALS: BP 150/100
[2021-01-08] MEDS ORDERED: ANTI-COAG MONITOR BY PHARMACY. MC PRN (12:15)
[2021-01-08] MEDS: METOPROLOL TART IMMED RELEASE 25 MG TABLET. PO SCH ×2 (12:18→21:08)
[2021-01-08] MEDS: APIXABAN 5 MG TABLET. PO SCH ×2 (12:18→21:07)
[2021-01-08] MEDS ORDERED: MAGNESIUM SULFATE 2GM 50 ML IV PRN ×2 (13:30)
[2021-01-08] MEDS ORDERED: fentaNYL PF VIAL 100 MCG/2 ML VIAL IVP ONE (13:30)
[2021-01-08] MEDS ORDERED: POTASSIUM CHLORIDE 20 MEQ TABLET.ER. PO PRN (13:30)
[2021-01-08] MEDS ORDERED: METOPROLOL IV PUSH 5 MG/5 ML VIAL. IVP PRN ×2 (13:30→13:45)
[2021-01-08] MEDS ORDERED: PHARMACY TO REVIEW MEDS. MC PRN (13:30)
[2021-01-08] MEDS ORDERED: POTASSIUM CHLORIDE 10MEQ 100 ML IV PRN (13:30)
[2021-01-08] MEDS: DOFETILIDE 125 MCG CAPSULE PO SCH ×2 (14:23→21:07)
[2021-01-08 15:00] VITALS: BP 150/116
[2021-01-08] MEDS ORDERED: LABETALOL 20 MG/4 ML DISP.SYRIN. IVP PRN (18:45)
[2021-01-08 19:00] VITALS: BP 165/107
[2021-01-08] MEDS ORDERED: APIXABAN 5 MG TABLET. PO SCH (21:00)
[2021-01-08] MEDS ORDERED: METOPROLOL TART IMMED RELEASE 25 MG TABLET. PO SCH (21:00)
[2021-01-08 23:00] VITALS: BP 165/132
--- NOTE | 2021-01-09 02:43 | EKG ---
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
[2021-01-09 03:00] VITALS: BP 154/89
[2021-01-09 05:45] LABS: CALCIUM 8.4 mg/dL (8.5-10.1); GFR 75.2; POTASSIUM 3.5 mmol/L (3.5-5.1)
[2021-01-09] MEDS ORDERED: BENZOCAINE ONE 20% MUCOSAL SPRAY. MM (06:30)
[2021-01-09] MEDS ORDERED: LIDOCAINE 2% VISCOUS 15 ML SOLUTION. SWSW ONE (06:30)
[2021-01-09] MEDS ORDERED: LIDOCAINE 2% TOPICAL JELLY 30GM TUBE. TP ONE (06:30)
[2021-01-09 07:00] VITALS: BP 161/102
[2021-01-09] MEDS ORDERED: IV RINGERS,LACTATED 1000ML 1,000 ML IV SCH (07:00)
[2021-01-09] MEDS ORDERED: PROPOFOL 10 MG/ML (20ML) VIAL. IV ONE (07:58)
[2021-01-09] MEDS: DOFETILIDE 125 MCG CAPSULE PO SCH ×2 (08:20→20:45)
[2021-01-09] MEDS: APIXABAN 5 MG TABLET. PO SCH ×2 (08:20→20:45)
[2021-01-09] MEDS: METOPROLOL TART IMMED RELEASE 25 MG TABLET. PO SCH ×2 (08:21→20:47)
--- NOTE | 2021-01-09 10:35 | PDOC ---
ANGELLA CHAPA CONICAL MIXER 01/09/21 1035: CARDIO Progress Notes Date and Time Date of Service 01/09/2021 Time of Evaluation 1030 Subjective Subjective: No Chest Pain, No shortness of breath, No Palpitations Vitals Vitals Vital Signs Date Time Temp Pulse Resp B/P (MAP) Pulse Ox O2 Delivery O2 Flow Rate FiO2 01/09/21 08:21 82 161/102 01/09/21 08:00 Room Air 01/09/21 07:00 97.7 16 96 97.7 Weight Weight [ ] Input and Output Intake and Output Intake and Output 01/09/21 07:00 Intake Total 550 ml Balance 550 ml Intake Oral 550 ml # Voids 4 Laboratory Labs Laboratory Tests Test 01/08/21 11:20 01/09/21 05:10 White Blood Count 5.0 x10^3/uL (4.0-11.0) Red Blood Count 4.08 x10^6/uL (4.30-5.70) Hemoglobin 12.6 g/dL (13.0-17.5) Hematocrit 36.4 % (39.0-53.0) Mean Corpuscular Volume 89 fL (79-100) Mean Corpuscular Hemoglobin 31 pg (25-35) Mean Corpuscular Hemoglobin Concent 35 g/dL (31-37) Red Cell Distribution Width 15.4 % (11.5-14.5) Platelet Count 192 x10^3/uL (140-400) Prothrombin Time 13.8 SEC (11.7-14.0) Prothromb Time International Ratio 1.1 (0.8-1.1) Sodium Level 140 mmol/L (136-145) 140 mmol/L (136-145) Potassium Level 3.8 mmol/L (3.5-5.1) 3.5 mmol/L (3.5-5.1) Chloride Level 105 mmol/L (98-107) 104 mmol/L (98-107) Carbon Dioxide Level 23 mmol/L (21-32) 24 mmol/L (21-32) Anion Gap 12 (6-14) 12 (6-14) Blood Urea Nitrogen 17 mg/dL (8-26) 16 mg/dL (8-26) Creatinine 1.0 mg/dL (0.7-1.3) 1.0 mg/dL (0.7-1.3) Estimated GFR (Cockcroft-Gault) 75.2 75.2 Glucose Level 94 mg/dL (70-99) 94 mg/dL (70-99) Calcium Level 8.6 mg/dL (8.5-10.1) 8.4 mg/dL (8.5-10.1) Magnesium Level 1.9 mg/dL (1.8-2.4) 2.0 mg/dL (1.8-2.4) Physical Exam HEENT: Neck Supple W Full Motion Chest: Symmetric LUNGS: Other (diminishdd bases) Heart: RRR (SR) Abdomen: Soft N/T Extremities: No Edema, No Calf Tenderness Neurology: alert, oriented, follow commands Assessment Assessment 1. PAFIB: failed amiodarone therapy. converted to SR overnight with tikosyn 2. HTN: controlled 3. NICM: Recent EF at 45%, clinically compensated 4. Chronic RBBB Recommendations 1. Continue current tikosyn dose. EKG per protocol 2. Eliquis for stroke prevention. Continue metoprolol 3. Anticipate DC tomorrow. Justicifation of Admission Dx: Justifications for Admission: Justification of Admission Dx: Yes ALIZA PHAM MD 01/09/21 1836: CARDIO Progress Notes Plan Plan The patient was seen and interviewed as well as examined at the bedside. The chart was reviewed. The case was discussed. Agree with the plan of care. Patient chemically cardioverted overnight. Overall still does not feel well. We will monitor him for another 24 hours. Supportive care for now. ANGELLA CHAPA APRN Jan 09, 2021 10:35 ALIZA PHAM MD Jan 09, 2021 18:36
[2021-01-09 11:00] VITALS: BP 137/91
--- NOTE | 2021-01-09 11:34 | EKG ---
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
[2021-01-09 15:00] VITALS: BP 152/106
--- NOTE | 2021-01-09 16:36 | NUR ---
SS following for discharge planning. SS reviewed pt chart and discussed with pt RN. Pt is from home with spouse and is currently on room air. SS will continue to follow for discharge planning.
[2021-01-09] MEDS: fentaNYL PF VIAL 100 MCG/2 ML VIAL IVP PRN ×2 (19:26→23:57)
[2021-01-09 20:00] VITALS: BP 131/95
[2021-01-09] MEDS ORDERED: DOFETILIDE 125 MCG CAPSULE PO SCH (21:00)
--- NOTE | 2021-01-09 23:11 | EKG ---
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
[2021-01-09 23:15] VITALS: BP 149/100
[2021-01-10 04:15] VITALS: BP 152/103
[2021-01-10 07:00] VITALS: BP 142/95
[2021-01-10 07:12] LABS: CALCIUM 8.6 mg/dL (8.5-10.1); CREATININE 1.1 mg/dL (0.7-1.3); GFR 67.4; POTASSIUM 3.7 mmol/L (3.5-5.1)
[2021-01-10] MEDS: METOPROLOL TART IMMED RELEASE 25 MG TABLET. PO SCH (08:35)
[2021-01-10] MEDS: APIXABAN 5 MG TABLET. PO SCH (08:35)
--- NOTE | 2021-01-10 08:37 | EKG ---
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
[2021-01-10] MEDS ORDERED: ACETAMINOPHEN 325 MG TABLET. PO PRN (10:30)
[2021-01-10] MEDS: fentaNYL PF VIAL 100 MCG/2 ML VIAL IVP PRN (10:57)
[2021-01-10 11:00] VITALS: BP 128/65
[2021-01-10] MEDS: DOFETILIDE 125 MCG CAPSULE PO SCH (11:37)
--- NOTE | 2021-01-10 11:38 | PDOC3 ---
ANGELLA CHAPA SURGERY MANAGER 01/10/21 1138: Discharge Summary Visit Information Date of Admission: Jan 08, 2021 Date of Discharge: Jan 10, 2021 Admitting Diagnosis: Persistent AFIB, NICM, HTN Final Diagnosis Persistent AFIB, NICM, HTN Brief Hospital Course Allergies Allergies Coded Allergies Type Severity Reaction Last Updated Verified No Known Drug Allergies 11/23/20 No Vital Signs Vital Signs Date Time Temp Pulse Resp B/P (MAP) Pulse Ox O2 Delivery O2 Flow Rate FiO2 01/10/21 10:57 95 Room Air 01/10/21 08:35 83 142/95 01/10/21 07:00 98.1 14 98.1 Lab Results Laboratory Tests Test 01/09/21 05:10 01/10/21 06:10 Sodium Level 140 mmol/L (136-145) 139 mmol/L (136-145) Potassium Level 3.5 mmol/L (3.5-5.1) 3.7 mmol/L (3.5-5.1) Chloride Level 104 mmol/L (98-107) 104 mmol/L (98-107) Carbon Dioxide Level 24 mmol/L (21-32) 24 mmol/L (21-32) Anion Gap 12 (6-14) 11 (6-14) Blood Urea Nitrogen 16 mg/dL (8-26) 14 mg/dL (8-26) Creatinine 1.0 mg/dL (0.7-1.3) 1.1 mg/dL (0.7-1.3) Estimated GFR (Cockcroft-Gault) 75.2 67.4 Glucose Level 94 mg/dL (70-99) 92 mg/dL (70-99) Calcium Level 8.4 mg/dL (8.5-10.1) 8.6 mg/dL (8.5-10.1) Magnesium Level 2.0 mg/dL (1.8-2.4) 2.0 mg/dL (1.8-2.4) Laboratory Tests Test 01/10/21 06:10 Sodium Level 139 mmol/L (136-145) Potassium Level 3.7 mmol/L (3.5-5.1) Chloride Level 104 mmol/L (98-107) Carbon Dioxide Level 24 mmol/L (21-32) Anion Gap 11 (6-14) Blood Urea Nitrogen 14 mg/dL (8-26) Creatinine 1.1 mg/dL (0.7-1.3) Estimated GFR (Cockcroft-Gault) 67.4 Glucose Level 92 mg/dL (70-99) Calcium Level 8.6 mg/dL (8.5-10.1) Magnesium Level 2.0 mg/dL (1.8-2.4) Brief Hospital Course Mr. Martinez is a 65 yo male admitted for refractory AFIB. He was cardioverted recently and has been on amiodarone. However, he converted to AFIB and was refractory with amiodarone. He was then planned for inpt tikosyn treatment which he responded very well and converted to SR. His QTc has been stable and within range and tolerated the new treatment. Denies any chest pain or SOA. His BP appears to labile at times and this will be monitored closely and he will continue his metoprolol otherwise VSS. He is to be discharge today and will obtain EKG on Friday and note any changes to his QTc. Continue leiquis for stroke prevention. He has NICM with EF at 45% and presently compensated. Discussed new treatment and will DC this afternoon. Discharge Information Condition at Discharge: Stable Follow Up: Weeks (4-6) Disposition/Orders: D/C to Home Scheduled Apixaban (Eliquis) 5 Mg Tablet, 5 MG PO BID for afib, (Reported) Entered as Reported by: Radha Baldwin on 11/22/20945 Last Action: Continued on 01/08/211204 by JAYLYN PHOENIX Dofetilide (Tikosyn) 125 Mcg Capsule, 250 MCG PO BID for AFIB for 30 Days, #120 Ref 3 Prescribed by: ANGELLA CHAPA on 01/10/21 1502 Metoprolol Tartrate (Metoprolol Tartrate) 25 Mg Tablet, 1 TAB PO BID for htn, #180 Ref 1 (Reported) Entered as Reported by: Radha Baldwin on 11/22/20945 Last Action: Continued on 01/08/211204 by JAYLYN PHOENIX Discontinued Medications Amiodarone Hcl (Amiodarone Hcl) 200 Mg Tablet, 1 TAB PO DAILY for afib, #90 Ref 1 (Reported) Entered as Reported by: Radha Baldwin on 11/22/20945 Last Action: Discontinued on 01/08/21950 by NICOLASA CONNOR Justicifation of Admission Dx: Justifications for Admission: Justification of Admission Dx: Yes ALIZA PHAM MD 01/10/21 1833: Discharge Summary Brief Hospital Course Brief Hospital Course The patient was seen and interviewed as well as examined at the bedside. The chart was reviewed. The case was discussed. Agree with the plan of care. Discharge Information Scheduled Apixaban (Eliquis) 5 Mg Tablet, 5 MG PO BID for afib, (Reported) Entered as Reported by: Radha Baldwin on 11/22/20945 Last Action: Continued on 01/08/21 120 by JAYLYN PHOENIX Dofetilide (Tikosyn) 125 Mcg Capsule, 250 MCG PO BID for AFIB for 30 Days, #120 Ref 3 Prescribed by: ANGELLA CHAPA on 01/10/21 1502 Metoprolol Tartrate (Metoprolol Tartrate) 25 Mg Tablet, 1 TAB PO BID for htn, #180 Ref 1 (Reported) Entered as Reported by: Radha Baldwin on 11/22/20945 Last Action: Continued on 01/08/21 120 by JAYLYN PHOENIX Discontinued Medications Amiodarone Hcl (Amiodarone Hcl) 200 Mg Tablet, 1 TAB PO DAILY for afib, #90 Ref 1 (Reported) Entered as Reported by: Radha Baldwin on 11/22/20945 Last Action: Discontinued on 01/08/21950 by ANGELLA NGUYEN APRN Jan 10, 2021 11:38 ALIZA PHAM MD Jan 10, 2021 18:33
--- NOTE | 2021-01-10 14:18 | EKG ---
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
[2021-01-10] MEDS ORDERED: DOFE125C PO (15:02)
--- NOTE | 2021-01-10 16:24 | NUR ---
Discharge Note: FELICITA HERNANDEZ P1 [facility] ICU Discharge instructions and discharge home medications reviewed with Patient and a copy given. Needs to follow up with cardiology this Friday also given. All questions have been answered and understanding verbalized. The following instructions and handouts were given: Ablation Discontinued iv line and catheter intact. Patient discharged to home with self-care.
--- NOTE | 2021-01-11 15:20 | PDOC1 ---
History and Physical Visit Information Date of Admission: Jan 08, 2021 at 08:52 History of Present Illness History of Present Illness Mr. Berrios is a pleasant 65 y.o male presented to the hospital for treatment of uncontrolled atrial fibrillation. He had a failed cardioversion and also was planned for Tikosyn loading to help with his heart failure symptoms. Upon presentation to the hospital the patient had significant afib with RVR therefore he was admitted for plans as above. Cardiac Risk Factors Comments HTN Ascending aortic aneurysm s/p repair. PAF DLP Allergies Allergies Allergies Coded Allergies Type Severity Reaction Last Updated Verified No Known Drug Allergies 11/23/20 No Social History Comments No alcohol, tob or illicit drug use. Family History Comments NC ROS Review of System Negative for 04/26 systems reviewed unless noted above in HPI Physical Exam General: Alert, Oriented X3, mild distress HEENT: Atraumatic Lungs: Clear to auscultation Heart: Other (irr irr) CHEST: Clear to auscultation Abdomen: Normal bowel sounds Extremities: No clubbing Skin: No rashes Neuro: Normal gait, Normal speech Vitals VITALS Vital Signs Date Time Temp Pulse Resp B/P (MAP) Pulse Ox O2 Delivery O2 Flow Rate FiO2 01/10/21 11:27 95 Room Air 01/10/21 11:00 98.0 83 16 128/65 (86) 98.0 Labs Labs Laboratory Tests Test 01/10/21 06:10 Sodium Level 139 mmol/L (136-145) Potassium Level 3.7 mmol/L (3.5-5.1) Chloride Level 104 mmol/L (98-107) Carbon Dioxide Level 24 mmol/L (21-32) Anion Gap 11 (6-14) Blood Urea Nitrogen 14 mg/dL (8-26) Creatinine 1.1 mg/dL (0.7-1.3) Estimated GFR (Cockcroft-Gault) 67.4 Glucose Level 92 mg/dL (70-99) Calcium Level 8.6 mg/dL (8.5-10.1) Magnesium Level 2.0 mg/dL (1.8-2.4) ECG EKG: A.Fib, w/ vent. rate of: VTE Prophylaxis Ordered VTE Prophylaxis Devices: No VTE Pharmacological Prophylaxi: No Assessment/Plan Assessment/Plan 1. Atrial fibrillation with RVR and worsening dyspnea and diastolic HF Plan for admission for Tikosyn loading and BEENA/CVN. Late entry. Justicifation of Admission Dx: Justifications for Admission: Justification of Admission Dx: Yes ALIZA PHAM MD Jan 11, 2021 15:20
== END 2021-01-10 16:44 | disposition home or self-care (01) ==
LOC: 1 WEST ICU 08:52 → INTOOBSV 08:52
PROVIDERS: ADMIT Internal Medicine Cardiovascular Disease; ATTEND Internal Medicine Cardiovascular Disease
DX: I48.0 Paroxysmal atrial fibrillation (principal); I11.0 Hypertensive heart disease with heart failure; I50.30 Unspecified diastolic (congestive) heart failure; I45.10 Unspecified right bundle-branch block; E78.5 Hyperlipidemia, unspecified; I42.8 Other cardiomyopathies; I71.2 Thoracic aortic aneurysm, without rupture; Z79.01 Long term (current) use of anticoagulants; Z79.899 Other long term (current) drug therapy
CPT/HCPCS: 36415; 80048; 83735; 85027; 85610; 92960; 93005; 96374; 96375; 96376; G0378; G0379; J3010; J3490; 93312; 93320; 93325; J2704